=== PATIENT | male | born 1970 | race African-American/Black ===

== ENCOUNTER 2020-06-29 09:46 | Emergency (ER) | payer BC, SELFPAY ==
[2020-06-29 09:46] VITALS: BP 155/89; PULSE 98; RESP 16; TEMP 36.3; O2SAT 99; BMI 31.9
--- NOTE | 2020-06-29 09:55 | RAD_ITS ---
STUDY: X-RAY - PELVIS AND LEFT HIP REASON FOR EXAM: Male, 49 years old. left hip pain, no injury TECHNIQUE: 3 views of the pelvis and hip. COMPARISON: None. FINDINGS: There is a non-specific bowel gas pattern. Normal visualized soft tissue structures. Normal bilateral iliac wings, sacroiliac joints and visualized sacrum. Normal bilateral superior and inferior pubic rami. Normal pubic symphysis. Normal bilateral ischial tuberosities. There are osteoarthritic changes of the femoral head with marginal osteophyte formation. Normal acetabulum. There is mild articular joint space narrowing of the hip. RAD/HIP, UNI W/ Pelvis 2-3 Views IMPRESSION: No acute findings. Mild degenerative changes Electronically Signed: Nahun Bhakta DO at 10:38 EST Tel , Service support ,
[2020-06-29] MEDS: Ketorolac 30 MG/ML Syringe IM (10:15)
--- NOTE | 2020-06-29 11:16 | ED.VIS.LOWEX ---
History of Present Illness Informant: Patient Occurred: Yesterday Mechanism/Context: - - Repetitive motion Onset: Yesterday Context: Gradual Onset Timing: Continuous Quality of Pain: Aching Location: Left hip Current Severity: Severe Maximum Severity: Severe Worsened by: Movement and walking Relieved by: Rest Associated Symptoms: Negative for: Parasthesia, Weakness, Loss of Funtion Narrative: 49-year-old male history of type 2 diabetes presents with left hip pain. Denies injury or trauma. It is an aching pain. Is worse when he stands up from a sitting position. No back pain no weakness no paresthesias no loss of bowel or bladder function no fevers denies IV drug abuse no abdominal pain Tetanus Immunization: Unknown Prior similar symptoms: No Recent Illness/Hospitalization: No <Eduardo Painting - Last Filed: 06/29/20 11:16> <Jhon Meyer - Last Filed: 06/29/20 11:41> Chief Complaint: Lower Extremity Injury Past Medical History Prior records reviewed: Yes Past Medical History: - - Type 2 diabetes mellitus Surgical History: no surgical history Lives: With Family Smoking Status: Never smoker Alcohol: None Drugs: None <Eduardo Painting - Last Filed: 06/29/20 11:16> <Jhon Meyer - Last Filed: 06/29/20 11:41> - Allergies and Home Meds Allergies/Adverse Reactions: Allergies No Known Allergies Allergy (Verified 06/29/20 09:46) Primary Care Physician: Gary Morin DO [STAFF PHYSICIAN] - Harleen Baltazar CUSTOMER SERVICES COORDINATOR, CUSTOMER SERVICES COORDINATOR-C [Nurse Practitioner] - Review of Systems All systems negative except as indicated General: Denies: Chills, Fever, Sweats Eyes: Denies: Visual changes - bilaterally, Diplopia ENT: Denies: Rhinorrhea, Sore throat Cardiovascular: Denies: Chest pain, Palpitations Respiratory: Denies: Dyspnea, Cough, Dyspnea on exertion Gastrointestinal: Denies: Abdominal pain, Nausea, Vomiting, Diarrhea, Melena, Hematochezia Genitourinary: Denies: Dysuria, Hematuria, Frequency Musculoskeletal: Reports: Swelling, Extremity Pain. Denies: Neck pain, Back pain Skin: Denies: Rash, Wounds Neurological: Denies: Headache, Weakness, Numbness <Eduardo Painting - Last Filed: 06/29/20 11:16> Physical Exam Vital Signs/Narrative: Vital Signs Temp Pulse Resp BP Pulse Ox 06/29/20 09:46 97.4 F L 98 16 155/89 H 99 Inital Vital Signs reviewed: Yes - Extremity Exam Left Hip: - - Patient has no swelling redness warmth or signs of trauma or infection or rash on his left hip his left lower extremity or his back. He has some tenderness over the hip. He has normal active range of motion of his hip. He has normal strength testing. He is neurovascular intact distally. Straight leg General: Well nourished, Well developed Head: Normocephalic, Atraumatic Eyes: Perrl, EOMI ENT: No Trauma, Moist Mucous Membranes Neck: Nontender, Full ROM Cardiovascular: Regular rate, Regular rhythm, No murmurs Respiratory: No distress, CTA bilaterally, Chest nontender Abdomen: Soft, Nontender, Nondistended, Normal bowel sounds Back: Nontender Skin: Normal color, No rash Neurological: Alert, Oriented x3, Cranial nerves II-XII grossly intact, Normal Strength, Normal Sensation, Normal DTR, Normal Gait Psychological: Normal affect <Eduardo Painting - Last Filed: 06/29/20 11:16> Vital Signs/Narrative: Vital Signs Temp Pulse Resp BP Pulse Ox 06/29/20 09:46 97.4 F L 98 16 155/89 H 99 <Jhon Meyer - Last Filed: 06/29/20 11:41> Diagnostic/Tx/Re-eval Impressions Hip/Pelvis X-Ray 06/29/20 09:55 IMPRESSION: No acute findings. Mild degenerative changes Electronically Signed: Nahun Bhakta DO at 10:38 EST Tel , Service support , 06/29/20 09:55 HIP, UNI W/ Pelvis 2-3 Views [RAD] Stat - Medical Decision Making X-ray of the patient's left hip showed no acute findings. Patient was given a dose of Toradol for pain while in the emergency department. He was given a prescription for Naprosyn for home. He was referred to orthopedics. He was offered crutches but declined because he was worried about falling while using the crutches due to the snow and ice outside. He was advised to rest and ice and follow-up with his doctor and he was given signs and symptoms that should prompt his return to the emergency department. <Eduardo Painting - Last Filed: 06/29/20 11:16> - Medical Decision Making Patient seen with Eduardo agree with the physical history as above, he has some discomfort to the left hip the back is unremarkable he is able to stand and walk his symptoms are worse when he moves his knee thigh tib-fib ankle and foot unremarkable he points directly to the left hip is of discomfort differentials extensive please see the full chart for full details and management and work-up <Jhon Meyer - Last Filed: 06/29/20 11:41> ED Disposition <Eduardo Painting - Last Filed: 06/29/20 11:16> <Jhon Meyer - Last Filed: 06/29/20 11:41> - Plan for ED Patient: Disposition: Home or Assisted Living Diagnosis: Hip bursitis, left Instructions: ED Bursitis Prescriptions: Naproxen [Naprosyn] 500 mg PO BID PRN #20 tab Transmission Status: Received by [id number] Hydrocodone Bitart/Apap 5-325 [[place] 5MG-325MG] 1 tab PO Q6H PRN PRN 3 Days #10 tab PRN Reason: Pain Transmission Status: Received by [id number] Referrals: Harleen Baltazar NP, CUSTOMER SERVICES COORDINATOR-C [Nurse Practitioner] - Gary Morin DO [STAFF PHYSICIAN] -
== END 2020-06-29 11:32 | disposition home or self-care (01) ==
PROVIDERS: Emergency Provider Physician Assistant Medical; PCP Family Medicine
DX: M70.72 Other bursitis of hip, left hip (principal); E11.9 Type 2 diabetes mellitus without complications; Z79.84 Long term (current) use of oral hypoglycemic drugs
CPT/HCPCS: 73502; 96372; 99282

== ENCOUNTER 2020-09-27 15:13 | Outpatient (RCR) | payer BC, SELFPAY | END 2020-12-10 23:59 | LOC: IMMUN 15:13 | PROVIDERS: PCP Family Medicine; Visit Provider Family Medicine | DX: Z23 Encounter for immunization (principal) | CPT/HCPCS: 0001A; 0002A; 91300 ==

== ENCOUNTER 2023-07-15 15:16 | Emergency (ER) | payer BC, SELFPAY ==
[2023-07-15 15:17] VITALS: BP 143/86; PULSE 77; RESP 18; TEMP 36.3; O2SAT 98; BMI 30.9
--- NOTE | 2023-07-15 16:53 | ED.VIS.DYS ---
HPI History of Present Illness Chief Complaint: Shortness of Breath Onset/Context/Timing Onset: Days Context: gradual Timing: Intermittent Current Severity: Mild Maximum Severity: Mild Worsened by: Nothing Relieved by: Nothing Associated Symptoms Chest Pain: Positive for Sharp Narrative Narrative: 52-year-old male recent adrenal resection done to [facility] on June 15. Recently has had some mild shortness of breath and some intermittent chest discomfort. His surgeon who did his adrenalectomy ordered a CTA of the chest which was done today at a [facility] facility showed diffuse bilateral pulmonary emboli. An ascending to the closest ER to be evaluated for anticoagulation. PE Risk Factors: Positive for Recent immobilization and Recent surgery; Negative for Cancer, OCP + Smoking + > 35, Prior DVT or PE, Recent travel or - Prior similar symptoms: No Recent Illness/Hospitalization: No PFSH PFSH Home Medications amlodipine 10 mg tablet 10 mg PO DAILY 06/29/20 [History Last Taken Unknown] chlorthalidone 25 mg tablet 12.5 mg PO DAILY 06/29/20 [History Last Taken Unknown] lisinopril 40 mg tablet 40 mg PO DAILY 06/29/20 [History Last Taken Unknown] metformin 1,000 mg tablet 1,000 mg PO BID 06/29/20 [History Last Taken Unknown] naproxen 500 mg tablet 500 mg PO BID PRN #20 tabs 06/29/20 [Rx Last Taken Unknown] potassium chloride 20 mEq oral packet 40 meq PO BID 06/29/20 [History Last Taken Unknown] apixaban 5 mg (74 tabs) tablets in a dose pack (Eliquis DVT-PE Treat 30D Start) 5 mg PO BID 30 days #60 tabs 07/15/23 [Rx Last Taken Unknown] Allergy/AdvReac Type Severity Reaction Status Date / Time No Known Allergies Allergy Verified 07/15/23 15:17 Social History Smoking Status: Never smoker ROS ROS ED ROS Narrative Intermittent chest pain. Intermittent shortness of breath. Review of Systems ROS Unobtainable: Denies due to encephalopathy Constitutional Constitutional ED: Denies chills or fever(s) Eyes Eyes: Denies blurry vision ENT ENT ED: Denies ear pain Cardiovascular Cardiovascular: Reports chest pain; Denies palpitations or racing heartbeat Respiratory/Chest Respiratory/Chest: Reports dyspnea; Denies cough Gastrointestinal Gastrointestinal: Denies abdominal pain, constipation, diarrhea, melena, nausea or vomiting Genitourinary Genitourinary ED: Denies dysuria or hematuria Musculoskeletal Musculoskeletal: Denies arthralgias, back pain, myalgias or neck pain Integumentary Denies abscess Neurologic Neurologic: Denies headache(s) Psychiatric Psychiatric: Denies anxiety or depression Endocrine Endocrinology: Denies cold intolerance Hematologic/Lymphatic Hematologic/Lymphatic: Denies easy bleeding Allergic/Immunologic Allergic/Immunologic ED: Denies mouth swelling EXAM Physical Exam Narrative Exam Narrative: 52-year-old male vital signs stable afebrile. Pulse ox 98% on room air no signs hypoxia. He is sitting in a hallway chair. He is in no distress. His heart rate 77. H EENT exam is normal. Neck nontender. Lungs clear to auscultation bilaterally. Heart regular rate and rhythm rate about 75 no murmur. Chest wall nontender. Abdomen soft nontender. Well-healed laparoscopic incisions. Moving all 4 extremities. Nontender no edema. Neurologically is awake and alert with no focal motor deficits. Benign exam. Const Vital Signs: 07/15/23 15:17 Temperature 97.3 F L Temperature Source Temporal Pulse Rate 77 Respiratory Rate 18 Blood Pressure 143/86 H Blood Pressure Mean 105 Pulse Ox 98 Oxygen Delivery Method Room Air Positive well nourished and well developed; Negative for obese, cachectic, contractures or unkempt General Appearance ED: well developed and NAD; Negative for unkempt, cachectic, contractures or pallor Nutritional Appearance: Negative for cachectic or obese HEENT Reports moist mucous membranes; Denies dry mucous membranes atraumatic; Negative for trauma or tenderness Mouth ED: No dry mucous membranes Mouth: No dry mucous membranes Eyes PERRL and EOMs intact bilaterally General Eye ED: Negative for pale conjunctiva or scleral icterus Neck no lymphadenopathy, supple, no meningeal signs and no JVD General: Negative for tenderness Lymph Lymphatic: Negative for other Chest Wall Chest: Negative for other Resp normal respiratory effort and clear to auscultation bilaterally Effort and Inspection: Negative for pain with movement Auscultation: Negative for rales, rhonchi or wheezes Cardio regular rate, regular rhythm, S1 normal heart sound, S2 normal heart sound and no murmurs Rate: Negative for bradycardia or tachycardic Rhythm: Negative for abnormal rhythm GI non-tender, non-distended and no masses Inspection: Negative for other Auscultation: normoactive bowel sounds Palpation: soft; Negative for tender or guarding Bladder / Kidney Exam: No other Back/Spine no CVA tenderness and normal to inspection General Back: Negative for CVA tenderness Extremity normal to inspection General Extremety ED: Negative for edema or tenderness General Extremity: Negative for edema Neuro oriented x3, CN's II-XII intact bilaterally and no sensory deficits noted Sensorium / Orientation: alert, oriented to person, oriented to place and oriented to time; Negative for orientation impaired or confused Speech: speech normal Motor Exam: strength 5/5 throughout Psych mental status grossly normal Appearance: Negative for unkempt Attitude: No agitated Mood & Affect: Negative for depressed Thought Process: normal thought process Skin no wounds and skin turgor normal General Skin Exam: Negative for jaundice or pallor Lesions: no lesions Rashes: no rashes MDM MDM MDM Narrative Medical decision making narrative: 52-year-old male recent adrenalectomy done at the [facility] laparoscopically on 1211. Has had intermittent sharp chest pain and shortness of breath. His surgeon ordered a CTA today of his chest which showed bilateral pulmonary emboli. His surgeon Dr. Cameron read me the CT results from the [facility]. I spoke to our vascular surgeon Dr. Yeboah urinary he and I felt comfortable with the patient being stable in no distress. Pulse ox 98% he could be started on Eliquis for anticoagulation. Patient had recent labs. That I reviewed on his phone from [employer]. Patient be written for Eliquis starter pack and outpatient follow-up with either vascular surgery here or the [facility] and his surgeon who did his recent surgery. Patient is comfortable to plan. History & Record Review Discussion w/independent historian: Patient Additional record(s) reviewed:: Prior inpatient record, Prior outpatient record, Prior ED visit, Prior labs and Other (Labs reviewed from the [facility].) Discharge Plan Triage Chief Complaint: Shortness of Breath ED Provider: Gonzalo Lemus Dx/Rx/DC Orders Clinical Impression: Hx of total adrenalectomy, History of diabetes mellitus, Bilateral pulmonary embolism, Chest pain Instructions: Pulmonary Embolism Prescriptions: New Eliquis DVT-PE Treat 30D Start 5 mg (74 tabs) tablets,dose pack 5 mg PO BID 30 Days Qty: 60 0RF No Action chlorthalidone 25 MG tablet 12.5 mg PO DAILY potassium chloride 20 MEQ packet 40 meq PO BID amlodipine 10 MG tablet 10 mg PO DAILY metformin 1,000 MG tablet 1,000 mg PO BID lisinopril 40 MG tablet 40 mg PO DAILY naproxen 500 MG tablet 500 mg PO BID PRN Qty: 20 0RF Primary Care Provider: Abelino Rangel Referrals: Abelino Rangel MD [Primary Care Provider] - Obinna Royal MD [Med Staff - Active Staff] - As soon as possible Activity Restrictions/Additional Instructions: You have blood clots on both sides your lungs. You will be started on the blood thinner Eliquis. Call and follow-up with your surgeon at the [facility], Dr. Cameron. If you would like our local vascular surgeon Dr. Obinna Vo would be happy to follow you up for the blood clots and the anticoagulation medicine. Anytime you are on blood thinners you to be very careful not to cut yourself. If you would fall and hit your head you need to be reevaluated. If you would notice any bleeding from your nose, blood in your stool or urine or bruising you need to be reevaluated. You will most likely be on this medication for 3 to 6 months. You will need additional prescriptions through your physicians. Disposition Disposition: Home, Self Care
--- OUTSIDE RECORDS SUMMARY | 2023-07-15 17:06 | XMS RPT_ITS | CCD ---
Author Name Unknown Address [address] [place] [address] Organization [facility] Care Team Providers Care Bottle Hop Name Role Phone MOHAN HICKS Unavailable Unavailable MOHAN HICKS Unavailable Unavailable MOHAN HICKS Unavailable Unavailable MOHAN HICKS Unavailable Unavailable Ti Iqbal Unavailable Unavailable MOHAN HICKS Unavailable Unavailable MOHAN HICKS Unavailable Unavailable Ti Iqbal Unavailable Unavailable Leanna Rangel MD Primary Care Provider Leanna Rangel MD Primary Care Provider Leanna Rangel MD Primary Care Provider Leanna Rangel MD Primary Care Provider BERYL ALANIS Referring Unavailable LEANNA RANGEL Primary Care Unavailab LEANNA Scott Primary Care Unavailab PATRICIA Cho Attending Un available ERICA HOWARD Referring U navailable LEANNA RANGEL Primary Care Unavailab LEANNA Scott Primary Care Unavailab LEANNA Scott Referring Unavailab andrew NETTLES SANDRA Attending Unavailable LEANNA RANGEL Primary Care Unavailab LEANNA Scott Primary Care Unavailab LEANNA Scott Primary Care Unavailab ALLYSSA Potter Attending Unavailable BERYL ALANIS Referring Unavailable LEANNA RANGEL Attending Unavailab LEANNA Scott Primary Care Unavailab le LEANNA RANGEL Primary Care Unavailab le BURSLEY, CHRISTOPHER B Primary Care Unavailab le CLAIRE, ROSALINDER B Referring Unavailab le ROSALIND RANGELER B Primary Care Unavailab le ROSALIND RANGELER B Primary Care Unavailab le ROSALIND RANGELER B Primary Care Unavailab le ROSALIND RANGELER B Primary Care Unavailab le TORI IRAIS SANCHEZSHAINAShashank Referring Unavaila ble ROSALIND RANGELER Mana Primary Care Unavailab le ROSALIND RANGELER Mana Referring Unavailab le ROSALIND RANGELER B Primary Care Unavailab NAYELI Price Attending Unavailable ROSALIND RANGELER Mana Primary Care Unavailab le ROSALIND RANGELER Mana Primary Care Unavailab le MELISSA RANGELOPHER B Primary Care Unavailab le ROSALIND RANGELER B Primary Care Unavailab le ROSALIND RANGELER Mana Attending Unavailab le LEANNA RANGEL Primary Care Unavailab ALLYSSA Potter Attending Unavailable ALLYSSA IZQUIERDO Admitting Unavailable LEANNA RANGEL Primary Care Unavailab BERYL Arita Referring Unavailable LEANNA RANGEL Primary Care Unavailab le ROSALIND RANGELER Mana Primary Care Unavailab ALLYSSA Potter Attending Unavailable LEANNA RANGEL Primary Care Unavailab le CLAIRE, ROSALINDER B Primary Care Unavailab le ROSALIND RANGELER B Primary Care Unavailab le LEANNA RANGEL Attending Unavailab BERYL Arita Referring Unavailable LEANNA RANGEL Primary Care Unavailab le ROSALIND RANGELER B Primary Care Unavailab le ROSALIND RANGELER B Referring Unavailab le ROSALIND RANGELER B Primary Care Unavailab le ROSALIND RANGELER B Primary Care Unavailab le ROSALIND RANGELER B Referring Unavailab le ROSALIND RANGELER B Primary Care Unavailab le MELISSA RANGELOPHER B Primary Care Unavailab le MELISSA RANGELOPHER B Primary Care Unavailab le MELISSA RANGELOPHER B Primary Care Unavailab MARY Zabala Attending Unavailable MARY YBARRA Admitting Unavailable LEANNA RANGEL Primary Care Unavailab ALLYSSA Potter Referring Unavailable ROSALIND RANGELER Mana Primary Care Unavailab le ROSALIND RANGELER Mana Attending Unavailab le LEANNA RANGEL Referring Unavailab le ROSALIND RANGELER Mana Primary Care Unavailab LEANNA Scott Primary Care Unavailab PATRICIA Cho Attending Un available LEANNA RANGEL Referring Unavailab BERYL Arita Attending Unavailable LEANNA RANGEL Primary Care Unavailab LEANNA Scott Primary Care Unavailab le Allergies Allergy Classification Reported Allergen(s) Allergy Type Date of Onset Reaction(s) Facility (20 sources) Seasonal allergy; Translations: [SEASONAL ALLERGIES] Propensity to adverse reactions (disorder) 2 Other: See Comments [facility] Repository (20 sources) Spironolactone; Translations: [SPIRONOLACTONE ] Drug Allergy 3 Other: See Comments [facility] Work Phone: Medications Current Medications Medication Drug Class(es) Dates Sig (Normalized) Sig (Original) glimepiride 4 mg oral tablet (20 sources) Sulfonylurea Start: 01-09-2022 End: 08-14-2023 take 2 tablets by mouth once daily at breakfast glimepiride (AMARYL) 4 mg tablet Indications: Type 2 diabetes mellitus with other diabetic kidney complication (HCC) Take 2 tablets by mouth daily with breakfast. 180 tablet 1 02/15/2023 08/14/2023 Active Completed/Discontinued Medications Medication Drug Class(es) Dates Sig (Normalized) Sig (Original) acetaminophen 500 mg oral tablet (2 sources) Start: 06-15-2023 take 2 tablets by mouth every eight hours acetaminophen (TYLENOL) 500 mg tablet Take 2 tablets by mouth every 8 hours. 0 06/15/2023 Active Problems Active Problems Problem Classification Problem Date Documented Date Episodic/Chronic Acute and unspecified renal failure (2 sources) Acute injury of kidney; Translations: [Acute kidney failure, unspecified] Episodic Administrative/socia l admission (1 source) Patient encounter status; Translations: [Dietary counseling and surveillance] Episodic Diabetes mellitus with complications (20 sources) Type 2 diabetes mellitus; Translations: [Type 2 diabetes mellitus with other diabetic kidney complication] Onset: 5 02-28-2015 Chronic Diabetes mellitus without complication (3 sources) Type 2 diabetes mellitus without complication; Translations: [Type 2 diabetes mellitus without complications] Onset: 3 Chronic Disorders of lipid metabolism (20 sources) Hyperlipidemia; Translations: [Hyperlipidemia, unspecified] Onset: 2 09-25-2011 Chronic Essential hypertension (20 sources) Essential (primary) hypertension; Translations: [Essential hypertension] Onset: 7 07-26-2015 Chronic Fluid and electrolyte disorders (1 source) Hypokalemia; Translations: [Hypokalemia] Episodic Immunizations and screening for infectious disease (7 sources) Vaccination needed; Translations: [Encounter for immunization] Episodic Nonmalignant breast conditions (20 sources) Gynecomastia; Translations: [Hypertrophy of breast] 08-05-2017 Episodic Other endocrine disorders (20 sources) Male hypogonadism; Translations: [Testicular hypofunction] Chronic Other endocrine disorders (20 sources) Hyperaldosteronism; Translations: [Hyperaldosteronism, unspecified] Onset: 3 Chronic Other endocrine disorders (2 sources) Disorder of adrenal gland; Translations: [Disorder of adrenal gland, unspecified] Chronic Other endocrine disorders (3 sources) Hyperaldosteronism, unspecified; Translations: [Hyperaldosteronism (HCC)] Onset: 3 Chronic Other endocrine disorders (2 sources) Disorder of adrenal gland, unspecified; Translations: [Disorder of adrenal gland (HCC)] Onset: 3 Chronic Other endocrine disorders (10 sources) Primary aldosteronism; 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] Onset: 3 04-22-2023 Chronic Other endocrine disorders (1 source) Other primary hyperaldosteronism; 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)] Onset: 3 Chronic Other endocrine disorders (2 sources) Testicular hypofunction; 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] Onset: 8 Chronic Other male genital disorders (1 source) Male erectile dysfunction, unspecified; Translations: [Erectile dysfunction, unspecified erectile dysfunction type] Onset: 3 Chronic Other non-traumatic joint disorders (1 source) Pain in left knee; Translations: [Pain in joint, lower leg] Episodic Other nutritional; endocrine; and metabolic disorders (1 source) Obese class I; Translations: [Obesity, unspecified] Chronic Other nutritional; endocrine; and metabolic disorders (4 sources) Obesity caused by energy imbalance; Translations: [Other obesity due to excess calories] Onset: 3 06-07-2023 Chronic Other nutritional; endocrine; and metabolic disorders (1 source) Other obesity due to excess calories; Translations: [Class 1 obesity due to excess calories with body mass index (BMI) of 31.0 to 31.9 in adult, unspecified whether serious comorbidity present] Onset: 3 Chronic Other nutritional; endocrine; and metabolic disorders (1 source) Body mass index (BMI) 31.0-31.9, adult; Translations: [Class 1 obesity due to excess calories with body mass index (BMI) of 31.0 to 31.9 in adult, unspecified whether serious comorbidity present] Onset: 3 Chronic Other nutritional; endocrine; and metabolic disorders (1 source) Obesity, unspecified; Translations: [Obesity, Class I, BMI 30-34.9] Onset: 3 Chronic Other skin disorders (1 source) Ingrowing toenail; Translations: [Ingrowing nail] Episodic Residual codes; unclassified (20 sources) Sleep apnea; Translations: [Sleep apnea, unspecified] Onset: 1 01-03-2021 Chronic Residual codes; unclassified (3 sources) Obstructive sleep apnea syndrome; Translations: [Obstructive sleep apnea (adult) (pediatric)] Chronic Residual codes; unclassified (1 source) Sleep apnea, unspecified; Translations: [Sleep apnea, unspecified type] Onset: 1 Chronic Residual codes; unclassified (1 source) Obstructive sleep apnea (adult) (pediatric); Translations: [JERAMY (obstructive sleep apnea)] Onset: 3 Chronic Unclassified (1 source) Unknown / UNK(Unknown) Onset: 7 Past or Other Problems Problem Classification Problem Date Documented Da te Episodic/Chronic Genitourinary symptoms and ill-defined conditions (20 sources) Blood in urine; Translations: [Hematuria, unspecified] Onset: 05-07-2009 11-27-2010 Episodic Other gastrointestinal disorders (20 sources) Diarrhea; Translations: [Diarrhea, unspecified] Onset: 06-05-2009 11-27-2010 Episodic Other non-traumatic joint disorders (20 sources) Pain in right hip joint; Translations: [Pain in right hip] Onset: 05-22-2019 05-22-2019 Episodic Results Test Name Value Interpretation Reference Range Facil ity Vital Signs Date Time Vital Sign Value Performing Clinician [place] lepe 06-07-2023 13:05-0500 Body height 172.7 cm Pacc 1 Work Phone: [facility] 06-07-2023 13:05-0500 Body temperature 97.39 [degF] Pacc 1 Work Phone: [facility] 06-07-2023 13:05-0500 Body weight 93.89 kg Pacc 1 Work Phone: [facility] 06-07-2023 13:05-0500 Diastolic blood pressure 94 mm[Hg] Pacc 1 Work Phone: [facility] 06-07-2023 13:05-0500 Heart rate 70 /min Pacc 1 Work Phone: [facility] 06-07-2023 13:05-0500 Respiratory rate 16 /min Pacc 1 Work Phone: [facility] 06-07-2023 13:05-0500 SaO2% (BldA) [Mass fraction] 99 % Pacc 1 Work Phone: [facility] 06-07-2023 13:05-0500 Systolic blood pressure 158 mm[Hg] Pacc 1 Work Phone: [facility] 01-14-2023 14:55-0400 Diastolic blood pressure 83 mm[Hg] Mi Nurse Work Phone: [facility] 01-14-2023 14:55-0400 Heart rate 68 /min Mi Nurse Work Phone: [facility] 01-14-2023 14:55-0400 Systolic blood pressure 145 mm[Hg] Mi Nurse Work Phone: [facility] 01-07-2023 14:01-0400 Body height 173.[address] [facility] 01-07-2023 14:01-0400 Body weight 94.[address] [facility] 2022 15:03-0400 Body weight 93.21 kg Beryl Alanis MD Work Phone: [facility] 2022 15:03-0400 Diastolic blood pressure 89 mm[Hg] Beryl Alanis MD Work Phone: [facility] 2022 15:03-0400 Heart rate 72 /min Beryl Alanis MD Work Phone: [facility] 2022 15:03-0400 Systolic blood pressure 154 mm[Hg] Beryl Alanis MD Work Phone: [facility] 12-30-2022 15:39-0400 Diastolic blood pressure 85 mm[Hg] Leanna Rangel MD Work Phone: [facility] 12-30-2022 15:39-0400 Heart rate 70 /min Leanna Rangel MD Work Phone: [facility] 12-30-2022 15:39-0400 Systolic blood pressure 146 mm[Hg] Leanna Rangel MD Work Phone: [facility] 12-03-2022 14:49-0400 Diastolic blood pressure 88 mm[Hg] Mi Nurse Work Phone: [facility] 12-03-2022 14:49-0400 Heart rate 67 /min Mi Nurse Work Phone: [facility] 12-03-2022 14:49-0400 Systolic blood pressure 138 mm[Hg] Mi Nurse Work Phone: [facility] 10-26-2022 11:12-0400 Diastolic blood pressure 93 mm[Hg] Leanna Rangel MD Work Phone: [facility] 10-26-2022 11:12-0400 Heart rate 72 /min Leanna Rangel MD Work Phone: [facility] 10-26-2022 11:12-0400 Systolic blood pressure 157 mm[Hg] Leanna Rangel MD Work Phone: [facility] 10-26-2022 10:54-0400 Body weight 92.99 kg Leanna Rangel MD Work Phone: [facility] 10-26-2022 10:54-0400 Respiratory rate 16 /min Leanna Rangel MD Work Phone: [facility] 09-25-2022 13:13-0400 Diastolic blood pressure 93 mm[Hg] Nayeli Podlogar [employer] Work Phone: [facility] 09-25-2022 13:13-0400 Heart rate 71 /min Nayeli Podlogar [employer] LEAD[employer] IN[employer] Work Phone: [facility] 09-25-2022 13:13-0400 Systolic blood pressure 156 mm[Hg] Nayeli Podlogar [employer] LEAD[employer]SHIP IN[employer] Work Phone: [facility] 09-25-2022 12:52-0400 Body weight 91.35 kg Nayeli Podlogar [employer] LEAD[employer]SHIP INSTRU[employer] Work Phone: [facility] 09-25-2022 12:52-0400 Respiratory rate 16 /min Nayeli Podlogar [employer] LEAD[employer] IN[employer] Work Phone: [facility] 09-25-2022 12:52-0400 SaO2% (BldA) [Mass fraction] 99 % Nayeli Podlogar [employer] LEAD[employer]SH[employer] IN[employer] Work Phone: [facility] 09-10-2022 15:17-0500 Diastolic blood pressure 82 mm[Hg] Leanna Rangel MD Work Phone: [facility] 09-10-2022 15:17-0500 Systolic blood pressure 156 mm[Hg] Leanna Rangel MD Work Phone: [facility] 09-10-2022 14:03-0500 Body weight 90.36 kg Leanna Rangel MD Work Phone: [facility] 09-10-2022 14:03-0500 Heart rate 83 /min Leanna Rangel MD Work Phone: [facility] 09-10-2022 14:03-0500 Respiratory rate 16 /min Leanna Rangel MD Work Phone: [facility] 09-10-2022 14:03-0500 SaO2% (BldA) [Mass fraction] 97 % Leanna Rangel MD Work Phone: [facility] 06-11-2022 13:22-0500 Body height 173.4 cm Leanna Rangel MD Work Phone: [facility] 06-11-2022 13:22-0500 Body weight 91.26 kg Leanna Rangel MD Work Phone: [facility] 06-11-2022 13:22-0500 Diastolic blood pressure 76 mm[Hg] Leanna Rangel MD Work Phone: [facility] 06-11-2022 13:22-0500 Heart rate 80 /min Leanna Rangel MD Work Phone: [facility] 06-11-2022 13:22-0500 Respiratory rate 16 /min Leanna Rangel MD Work Phone: [facility] 06-11-2022 13:22-0500 SaO2% (BldA) [Mass fraction] 98 % Leanna Rangel MD Work Phone: [facility] 06-11-2022 13:22-0500 Systolic blood pressure 138 mm[Hg] Leanna Rangel MD Work Phone: [facility] 03-12-2022 14:36-0400 Diastolic blood pressure 82 mm[Hg] Mi Nurse Work Phone: [facility] 03-12-2022 14:36-0400 Heart rate 73 /min Mi Nurse Work Phone: [facility] 03-12-2022 14:36-0400 Systolic blood pressure 136 mm[Hg] Mi Nurse Work Phone: [facility] 02-26-2022 14:48-0400 Body weight 86.91 kg Leanna Rangel MD Work Phone: [facility] 02-26-2022 14:48-0400 Diastolic blood pressure 82 mm[Hg] Leanna Rangel MD Work Phone: [facility] 02-26-2022 14:48-0400 Heart rate 80 /min Leanna Rangel MD Work Phone: [facility] 02-26-2022 14:48-0400 Respiratory rate 16 /min Leanna Rangel MD Work Phone: [facility] 02-26-2022 14:48-0400 SaO2% (BldA) [Mass fraction] 97 % Leanna Rangel MD Work Phone: [facility] 02-26-2022 14:48-0400 Systolic blood pressure 130 mm[Hg] Leanna Rangel MD Work Phone: [facility] 01-08-2022 15:14-0400 Body weight 90.27 kg Leanna Rangel MD Work Phone: [facility] 01-08-2022 15:14-0400 Diastolic blood pressure 64 mm[Hg] Leanna Rangel MD Work Phone: [facility] 01-08-2022 15:14-0400 Heart rate 90 /min Leanna Rangel MD Work Phone: [facility] 01-08-2022 15:14-0400 Respiratory rate 16 /min Leanna Rangel MD Work Phone: [facility] 01-08-2022 15:14-0400 SaO2% (BldA) [Mass fraction] 97 % Leanna Rangel MD Work Phone: [facility] 01-08-2022 15:14-0400 Systolic blood pressure 118 mm[Hg] Leanna Rangel MD Work Phone: [facility] Encounters Encounter Date Encounter Type Care Provider Facility Start: 06-30-2023 End: 07-01-2023 ambulatory LEANNA RANGEL Facility:[facility] Start: 06-23-2023 End: 06-24-2023 ambulatory ERICA SUAREZ Facility:[facility] Start: 06-21-2023 End: 06-21-2023 ambulatory LEANNA RANGEL Facility:[facility] Start: 06-18-2023 Telephone encounter Allyssa jacob MD Work Phone: Endocrine Surgery Procedures Date Procedure Procedure Detail Performing Clinician Start: 06-07-2023 Antibody screen CALLUM RANGEL Plan of Treatment Date Care Activity Detail Author Start: 06-11-2032 Urine microalbumin profile [facility] Start: 08-30-2024 Colonoscopy COLONOSCOPY [facility] Start: 08-30-2024 COLORECTAL CANCER SCREENING COLORECTAL CANCER SCREENING [facility] Start: 08-30-2024 Screening for malign ant neoplasm of colon [facility] Start: 04-22-2024 3 comp foot exam completed Diabetic Foot Exam [facility] Start: 04-22-2024 Annual PCP Team [employer] [place] Disease Visit Annual PCP Team Chronic Disease Visit [facility] Start: 04-22-2024 Diabetic foot examination Diabetic F oot Exam [facility] Start: 02-04-2024 Glaucoma screening Dilated Retinal E xam [facility] Start: 02-04-2024 Hepatitis C antibody , confirmatory test Dilated Retinal Exam [facility] Start: 12-18-2023 ANNUAL PCP TEAM [employer] [place] DISEASE VISIT ANNUAL PCP TEAM CHRONIC DISEASE VISIT [facility] Start: 10-27-2023 ANNUAL PCP TEAM [employer] [place] DISEASE VISIT ANNUAL PCP TEAM CHRONIC DISEASE VISIT [facility] Start: 10-22-2023 Hemoglobin A1c measurement HbA1C [facility] Start: 10-22-2023 Hemoglobin A1c/Hemoglobin.total in Blood HbA1C [facility] Start: 09-26-2023 ANNUAL PCP TEAM [employer] [place] DISEASE VISIT ANNUAL PCP TEAM CHRONIC DISEASE VISIT [facility] Start: 09-11-2023 ANNUAL PCP TEAM [employer] [place] DISEASE VISIT ANNUAL PCP TEAM CHRONIC DISEASE VISIT [facility] Start: 06-25-2023 Hemoglobin A1c/Hemoglobin.total in Blood HBA1C [facility] Start: 06-11-2023 ANNUAL PCP TEAM [employer] [place] DISEASE VISIT ANNUAL PCP TEAM CHRONIC DISEASE VISIT [facility] Start: 06-11-2023 HEPATITIS B (1 of 3 - 3-dose series) HEPATITIS B (1 of 3 - 3-dose series) [facility] Immunizations Immunization Date Immunization Notes Care Provider Fa lindsay 03-24-2023 hepatitis B vaccine, adult dosage Mi Nurse Work Phone: [facility] Work Phone: 03-23-2023 influenza, injectabl e, quadrivalent, contains preservative Tn Nurse Work Phone: [facility] Work Phone: 07-16-2022 hepatitis B vaccine, adult dosage Mi Nurse Work Phone: [facility] Work Phone: 07-16-2022 hepatitis B vaccine, unspecified formulation Mi Nurse Work Phone: [facility] 06-18-2022 hepatitis B vaccine, adult dosage Tn Nurse Work Phone: [facility] Work Phone: 06-18-2022 hepatitis B vaccine, unspecified formulation Tn Nurse Work Phone: [facility] 06-11-2022 pneumococcal Conjuga te, unspecified formulation Leanna Rangel MD Work Phone: [facility] Work Phone: 06-11-2022 pneumococcal (PCV20) vaccine, 20 valent (PREVNAR 20) Leanna Rangel MD Work Phone: [facility] 06-11-2022 tetanus toxoid, redu polina diphtheria toxoid, and acellular pertussis vaccine, adsorbed Leanna Rangel MD Work Phone: [facility] 03-26-2022 COVID-19 booster vaccine, age 12+ yr, bivalent (PFIZER-BIONTECH) Tn Nurse Work Phone: [facility] Work Phone: 12-04-2021 COVID-19 vaccine, ag e 12+ yr (PFIZER-BIONTECH - SOTO TOP) Tn Nurse Work Phone: [facility] Work Phone: 05-22-2021 COVID-19 vaccine, ag e 12+ yr (PFIZER-BIONTECH - PURPLE TOP) Tn Nurse Work Phone: [facility] Work Phone: 03-27-2021 zoster vaccine recombinant Tn Nurse Work Phone: [facility] Work Phone: 03-11-2021 influenza, injectabl e, quadrivalent, contains preservative Mi Nurse Work Phone: [facility] Work Phone: 01-16-2021 zoster vaccine recombinant Mi Nurse Work Phone: [facility] Work Phone: 10-18-2020 COVID-19 vaccine, ag e 12+ yr (PFIZER-BIONTECH - PURPLE TOP) Mi Nurse Work Phone: [facility] 09-27-2020 COVID-19 vaccine, ag e 12+ yr (PFIZER-BIONTECH - PURPLE TOP) Mi Nurse Work Phone: [facility] 04-03-2020 influenza, seasonal, injectable Mi Nurse Work Phone: [facility] 04-03-2019 influenza, seasonal, injectable Mi Nurse Work Phone: [facility] 03-18-2016 influenza, seasonal, injectable Mi Nurse Work Phone: [facility] Work Phone: 05-06-2015 influenza, seasonal, injectable Mi Nurse Work Phone: [facility] 04-04-2014 influenza, seasonal, injectable Mi Nurse Work Phone: [facility] 03-24-2012 influenza virus vaccine, unspecified formulation Mi Nurse Work Phone: [facility] Work Phone: 03-17-2012 pneumococcal polysaccharide vaccine, 23 valent Mi Nurse Work Phone: [facility] 03-17-2012 tetanus toxoid, redu polina diphtheria toxoid, and acellular pertussis vaccine, adsorbed Mi Nurse Work Phone: [facility] 06-01-2007 influenza virus vaccine, unspecified formulation Mi Nurse Work Phone: [facility] Work Phone: Payers Date Payer Category Payer Unknown [id number] 2020 Unknown ANTHEM BLUE CARD POS OOS [id number] 2020-Present [phone] [address] [place] [address] POS [id number] 2020 Unknown [id number] Private Health Insurance [id number] Unknown [id number] Social History Date Type Detail Facility Start: 03-11-2017 End: 02-26-2022 Tobacco smoking status NHIS Never smoked tobacco [facility] Start: 03-11-2017 End: 02-26-2022 Tobacco use and exposure Smokeless tobacco non-user [facility] Start: 09-05-2021 End: 06-07-2023 Alcohol intake Current drinker of alcohol (finding) [facility] Start: 09-05-2021 End: 11-19-2022 Alcohol intake [facility] Work Phone: Start: 08-05-2017 History SDOH Alcohol Comment occasional use [facility] Start: 03-11-2017 End: 02-26-2022 Tobacco Comment tried once [facility] Start: 1970 Sex Assigned At Not on file [facility] Start: 10-13-2021 End: 02-26-2022 Exposure to SARS-CoV-2 (event) Not sure [facility] Start: 06-11-2022 End: 04-22-2023 Alcohol intake Ex-drinker (finding) [facility] Start: 06-11-2022 Alcohol Comment Rare use [facility] Start: 11-19-2022 End: 01-14-2023 Tobacco use panel [facility] Work Phone: Adult Depression Screening Assessment 0 [facility] Work Phone: Medical Equipment Procedure Code Equipment Code Equipment Origin al Text Equipment Identifier Dates Start: 07-21-2019 End: 04-16-2023 Clinical Notes 04-12-2014 to 06-30-2023 Telephone Encounter - Princess Jo MD - 06/18/2023 4:29 PM ESTTelephone Encounter - Yumiko Pastrana - 06/18/2023 4:01 PM ESTTelephone Encounter - Princess Jo MD - 06/18/2023 4:26 PM EST Note Date & Type Note Facility 06-30-2023 Note [facility] 06-23-2023 Note [facility] 06-21-2023 Note [facility] 06-18-2023 Miscellaneous Notes I just created a new note and routed it. Fellow, Patricia Gunderson has requested the [employer] for an appointment with her for next Wednesday at 3 PM, 06/23/2023. This also needs to routed to [facility] to ensure the visit is scheduled. Thanks for bringing it to our attention. Princess Jo MD, MPH Patient post-op adrenalectomy on 06/15. Called into office with complaints of no follow through by endocrinology team. Patient was told by them before discharge he would be given BP cuff and machine to monitor his blood pressure and follow up appointment with endocrinology to adjust BP medication. Patient stated discharge paperwork has 06/18 and 06/23 for follow up, but no appointment was made. Patient extremely upset about the lack of communication regarding appointments. From a surgical stand point, patient is doing well. Reports incision site is clean, dry and intact. Eating a normal diet, ambulating without difficulty, pain adequately controlled. Will notify Dr. Izquierdo. Yumiko Pastrana RN documented in this encounter [facility] 06-18-[address] Katz has seen this patient in house and signed the note. Dr. Patricia Gunderson has asked the [employer] for an appointment with her next 06/23/23 at 3 PM (tel encounter), but this has not been scheduled yet. I will route to [facility] to ensure the visit and let Dr. Gunderson know to message her in these urgent appointments encounter. Thank you for bringing this to our attention. Princess Jo MD, MPH documented in this encounter [facility] 06-16-2023 Note [facility] 06-15-2023 Note [facility] 06-15-2023 Note [facility] 06-15-2023 Note [facility] 06-15-2023 Note [facility] 06-07-2023 History and physical note HISTORY AND PHYSICAL EXAMINATION SERVICE DATE: 06/07/2023 SERVICE TIME: 2:06 PM PRIMARY CARE PHYSICIAN: Leanna Rangel MD Assessment Patient has the following medical conditions which may affect fidelina-operative course: Hyperlipidemia Assessment: c/w statin Uncontrolled hypertension Assessment: hx, sub-optimal control, asymptomatic Last 14 BP Last 14 Encounter BP Readings: Date: BP: 06/07/2023 158/94 04/22/2023 130/84 02/16/2023 145/81 01/14/2023 145/83[BP Ollie average[ 2022 154/89 12/30/2022 146/85[BP Ollie average[ 12/17/2022 154/91[Ollie BP average[ 12/03/2022 141/83[BP Ollie average[ 11/19/2022 150/89[BP Ollie average[ 10/26/2022 157/93[TruBP[ 09/25/2022 156/93[OLLIE BP[ 09/10/2022 156/82[recheck[ 06/11/2022 138/76 03/12/2022 136/82[BP Ollie average[ Type 2 diabetes mellitus with other diabetic kidney complication (HCC) Assessment: controlled with oral agents Hemoglobin A1C (%) Date Value 04/22/2023 6.3 06/05/2021 6.8 Sleep apnea Assessment: non-compliant with CPAP Class 1 obesity due to excess calories with body mass index (BMI) of 31.0 to 31.9 in adult Assessment: Body mass index is 31.47 kg/m . Zimmerman Activity Status Index: METS: Climb a flight of stairs or walk up a hill (5.50 METs) DASI Score: 5.5 Patient denies any chest pain or undue shortness of breath with the above physical activity. Clinical Frailty Scale: 3. Well, with treated comorbid disease STOP-Bang Score: Snores loudly Often feels tired, fatigued, or sleepy during the daytime Has been observed to stop breathing or choking/gasping during sleep Has or is being treated for high blood pressure Patient over 50 years old Has a large neck Male patient BMI less than or equal to 35 kg/m^2 STOP-Bang Score: 7 [id number] Score: Age: <65 Sex: male CHF history: No Hypertension history: Yes Stroke/TIA/thromboembolism history: No Vascular disease history: No Diabetes history: Yes [id number] Score: 2 ARISCAT Score: Age: 51-80 Preoperative SpO2: >=96% Respiratory infection in the last month: No Preoperative anemia: Yes Surgical incision: peripheral Duration of surgery: >3 hrs Emergency procedure: No ARISCAT Score: 37 ANESTHESIA FINDINGS: Intubation History: No history of difficult intubation Significant Anesthesia Considerations: none Airway History: No history of difficult airway I - PHYSICAL EVALUATION AIRWAY Patient intubated: No. Tracheostomy tube not present Mallampati: III. TM distance: >3 FB. Neck ROM: full ROM without neurological symptoms. Mouth opening: adequate. Short neck: no. Thick neck: yes Valdez present: no Lip Bite Test: I Microretrognathia/Micronagthia/Rec essed Chin: No DENTAL Dental findings: teeth intact. II - ANESTHESIA PLAN Anesthetic Plan: other Beta Apple Monitoring Plan Post Procedure Analgesic Plan Informed Consent Anesthetic risks, benefits, alternatives, personnel and consent discussed: yes. Patient / Responsible Republican agrees to proceed: yes Patient / Surrogate agrees to blood products: blood products not planned Discussed the possibility of lip / dental damage: yes REASON FOR VISIT: Trevor Byers is a 52 year old male who is scheduled for Procedure(s): LAPAROSCOPIC ADRENALECTOMY (Right) at the request of @[email or web address]@ for consultation. My final recommendation will be communicated back to the requesting physician by way of shared medical record or letter. Subjective The patient has the following: ACTIVE PROBLEM LIST Uncontrolled Hypertension Hematuria Diarrhea Sleep Apnea Hyperlipidemia Type 2 Diabetes Mellitus With Other Diabetic Kidney Complication (Hcc) Gynecomastia Hypogonadism in Male Right Hip Pain Primary Hyperaldosteronism (Hcc) Class 1 Obesity Due to Excess Calories With Body Mass Index (Bmi) of 31.0 to 31.9 in Adult COVID-19 Immunization Status Overdue - Covid-19 Vaccine (2022- season) Overdue since 03/05/2023 03/26/2022 Imm Admin: COVID-19 vaccine, age 12+ yr, bivalent (PFIZER-BIONTECH) 12/04/2021 Imm Admin: COVID-19 original vaccine, age 12+ yr, monovalent (PFIZER-BIONTECH - SOTO TOP) 05/22/2021 Imm Admin: COVID-19 original vaccine, age 12+ yr, monovalent (PFIZER-BIONTECH - PURPLE TOP) Only the first 3 history entries have been loaded, but more history exists. CHIEF COMPLAINT: Pre-op exam HPI: Trevor Byers is a 52 year old seen for PAC due to scheduled above surgery because of hyperaldosteronism. 04/22/2023, Dr. Izquierdo HPI: Trevor Byers was evaluated today for a consultation regarding a primary hyperaldosteronism. He has had an extensive work up demonstrating primary aldosteronism. On AVS he lateralized to the right adrenal gland with a ratio of 7.5:1. He has been referred for a surgical evaluation. REVIEW OF SYSTEMS: General: No weight loss, malaise or fevers. Neurological: No history of TIA's, stroke, PUBLIC POLICY COORDINATOR tumor, impaired sensorium, hemiplegia, paraplegia or quadraplegia. No neurological symptoms or problems. Respiratory: Positive for: obstructive sleep apnea and CPAP/BiPAP noncompliant. Negative for: asthma, COPD, pneumonia within 6 weeks, tobacco use and URI < 2 weeks. Cardiovascular: Positive for: hyperlipidemia (on rx) and hypertension (on rx) Negative for: anticoagulation therapy, arrhythmia, atrial fibrillation, CAD, chest pain, CHF, congenital heart defect, DVT/PE, recent OR, murmur/valvular heart disease, PVD, open heart surgery and valve surgery. GI: No history of GI symptoms or problems. No history of esophageal varices, recent ascites, or ETOH greater than 2 drinks per day. : No history of dysuria, frequency or incontinence, stones or chronic kidney disease. No difficulty urinating, nocturia > 1 time per night or hematuria. Endocrine: See HPI. Positive for: diabetes mellitus. Patient's diabetes mellitus is controlled by oral agents. Hematology: No history of bleeding or clotting disorder. Patient is not taking anti-coagulation or platelet medications. No history of hematological symptoms or problems. Oncology: No history of CA metastasis, chemo within 30 days, or radiotherapy within 90 days. No history of oncological symptoms or problems. Psych: No history of psychiatric symptoms or problems. Musculoskeletal: Positive for: joint pain. Skin: Negative for lesions, rash and itching. PAST MEDICAL HISTORY Diagnosis Date Abnormal ECG during exercise stress test 2016 BPH (benign prostatic hyperplasia) Diabetes mellitus type II (HCC) Diverticulosis Gynecomastia Hyperaldosteronism (HCC) Hyperlipidemia Hypertension Hypogonadism in male JERAMY (obstructive sleep apnea) has CPAP but has not been using it Overweight Palpitations PAST SURGICAL HISTORY Procedure Laterality Date COLONOSCOPY FLX DX W/COLLJ SPEC WHEN PFRMD 08/30/2014 Colonoscopy repeat in 10 years FAMILY HISTORY Problem Relation Age of Onset Diabetes Mother Hypertension Mother Coronary Artery Disease Other none Diabetes Brother Twin Hypertension Brother Social History Tobacco Use Smoking status: Never Smokeless tobacco: Never Tobacco comments: tried once Vaping Use Vaping Use: Never used Substance Use Topics Alcohol use: Yes Comment: Rare use Drug use: No Prior to Admission medications as of 06/07/23 1305 Medication Sig Last Dose Taking testosterone cypionate (DEPO-TESTOSTERONE) 200 mg/mL injection Inject 1 mL intramuscularly every 3 weeks for 180 days. Taking Yes empagliflozin (JARDIANCE) 25 mg tablet Take 1 tablet by mouth once daily. Take 1 tablet once daily in the morning Taking Yes metoprolol succinate ER (TOPROL XL) 200 mg 24 hr tablet Take 1 tablet by mouth once daily. Taking Yes hydrALAZINE (APRESOLINE) 25 mg tablet Take 1 tablet by mouth three times a day. Taking Yes ONETOUCH VERIO TEST STRIPS test strip ONE TOUCH VERIO IQ TEST STRIPS TEST BLOOD SUGAR(S) 1-2 TIMES DAILY. DX: TYPE 2 DM - CONTROLLED E11.9 INSULIN: NO Taking Yes glimepiride (AMARYL) 4 mg tablet Take 2 tablets by mouth daily with breakfast. Taking Yes CPAP Pt machine on recall list. Please change PAP setting to 4-11 cmH2O. Set ramp to start at 4 and ramp duration of 30 minutes. Also pleas fit with Dream Wisp nasal mask. Taking Yes amLODIPine (NORVASC) 10 mg tablet Take 1 tablet by mouth once daily. Taking Yes lisinopril (ZESTRIL) 40 mg tablet Take 1 tablet by mouth once daily. Taking Yes metFORMIN (GLUCOPHAGE) 500 mg tablet Take 1 tablet by mouth twice daily with meals. Yes Lancets lancets Test blood sugar(s) 1-2 times daily. Dx: Type 2 DM - Controlled E11.9 Insulin: No Taking Yes nitroglycerin sublingual (NITROSTAT) 0.4 mg SL tablet Dissolve 1 tablet under the tongue as needed. FOR CHEST PAIN. IF NO RELIEF CALL 911 Taking Yes pravastatin (PRAVACHOL) 20 mg tablet Take 1 tablet by mouth daily at bedtime. Taking Yes lancets (ONE TOUCH DELICA) 33 gauge misc Test blood sugar(s) once daily. Dx: Type 2 DM - Controlled E11.9 Insulin: No Taking Yes No medication comments found. ALLERGIES Allergen Reactions Aldactone [Spironol* Other: See Comments gynecomastia Seasonal Allergies Other: See Comments Patient states he gets stuffed up Objective PHYSICAL EXAM: General: alert and oriented (x3), healthy appearance and obese. Pertinent negatives noted - not distressed. Skin: normal color, no rash or lesions. HEENT: EOM intact and pupils equal round. Pertinent negatives noted - no carotid bruit. Cardiovascular: regular rate and rhythm, normal S1 and S2, no rub, murmurs, or gallop. Respiratory: normal breath sounds, no wheezes or crackles. No chest wall deformity or tenderness. Abdomen: soft. Pertinent negatives noted - not tender. Extremities: no deformity, no edema or tenderness, no joint swelling or clubbing. Neurological: normal cognition and motor skills. Gait normal. No weakness or sensory deficit. PAIN ASSESSMENT: VITALS: BP 158/94 Pulse 70 Temp (Src) 97.4 (Temporal) Resp 16 Ht 5' 8 (1.73m) Wt 207 lb (93.9kg) SpO2 99% BMI 31.48 kg/(m^2). Diagnostic tests reviewed for today's visit: Lab Value Units Date High Low HB 16.8 g/dL 12/24/2022 17.0 13.0 HCT 50.4 % 12/24/2022 51.0 39.0 WBC 6.05 k/uL 12/24/2022 11.00 3.70 PLT 233 k/uL 12/24/2022 400 150 NA 136 mmol/L 12/24/2022 144 136 K 3.7 mmol/L 12/24/2022 5.1 3.7 GLUC 109 mg/dL 12/24/2022 99 74 BUN 23 mg/dL 12/24/2022 24 9 CREAT 1.42 mg/dL 12/24/2022 1.22 0.73 PTSEC No results within date range. INR No results within date range. APTT No results within date range. ALT 22 U/L 12/24/2022 54 10 AST 19 U/L 12/24/2022 40 14 TBILI 0.9 mg/dL 12/24/2022 1.3 0.2 TSH No results within date range. Lab Value Units Date High Low HCGQT No results within date range. UHCG No results within date range. HCG, BODY* No results within date range. Lab Value Units Date High Low ABORHD No results within date range. ABSCREEN No results within date range. Hemoglobin A1C (%) Date Value 04/22/2023 6.3 12/24/2022 6.7 09/10/2022 6.3 06/11/2022 6.5 03/12/2022 7.9 06/05/2021 6.8 02/27/2021 7.0 11/28/2020 6.0 08/30/2020 8.0 05/16/2020 7.1 Recent Results (from the past 8760 hour(s)) ECG COMPLETE Collection Time: 06/07/23 2:55 PM Result Value Ventricular Rate 67 Atrial Rate 67 P-R Interval 170 QRS Duration 76 QT Interval 396 QTC Calculation (Bazett) 418 Calculated P Edmond 54 Calculated R Edmond 56 Calculated T Edmond 154 Impression NORMAL SINUS RHYTHM MINIMAL VOLTAGE CRITERIA FOR LVH, MAY BE NORMAL VARIANT ST & LATERAL T WAVE ABNORMALITY ABNORMAL ECG No results found for this or any previous visit (from the past 53570 hour(s)). Prepared for Surgery: optimally prepared for surgery, pending [see comment]. EKG and labs CONSULTS: Patient does not require consults for optimization at this time Planned Anesthetic: other anesthesia choice The Following Tests/Procedures Have Been Initiated: Orders Placed This Encounter ECG COMPLETE Standing Status: Future Standing Expiration Date: 06/07/2024 Instructions Given to Patient: Instructions located in the after visit summary. Patient given verbal and written preop instructions and voices comprehension and compliance. SIGNATURE: Darathony Yu APRN.CNP PATIENT NAME: Trevor Byers DATE: June 07, 2023 TIME: 1:22 PM PAGER/CONTACT #: documented in this encounter [facility] 06-07-2023 Instructions Dara Yu APRN.CNP - 06/07/2023 1:21 PM EST PATIENT PREOPERATIVE INSTRUCTIONS No ref. provider found has scheduled you for your procedure at this surgery center: [facility] Scheduling Office: [phone] --[address] [place] [address]. Please read below carefully for your personalized instructions. Dietary Restrictions: - No solid food after midnight. - You may have 12 ounces of clear liquids (water, clear juices such as apple juice or gatorade, carbonated beverages, clear tea, black coffee, jello) until 2 hours before scheduled arrival at facility. No red/purple coloring and no creamer/sugar Medications: Unless instructed differently below, stay on all of your medications until your surgery. If you start any new medications after today's visit, please contact your surgeon. Pre-Surgery Med Instructions Medication Instructions testosterone cypionate (DEPO-TESTOSTERONE) 200 mg/mL injection Do not take the day of surgery empagliflozin (JARDIANCE) 25 mg tablet Stop 3 days before surgery metoprolol succinate ER (TOPROL XL) 200 mg 24 hr tablet Take the day of surgery with a small sip of water hydrALAZINE (APRESOLINE) 25 mg tablet Take the day of surgery with a small sip of water ONETOUCH VERIO TEST STRIPS test strip glimepiride (AMARYL) 4 mg tablet Do not take the day of surgery CPAP amLODIPine (NORVASC) 10 mg tablet Take the day of surgery with a small sip of water lisinopril (ZESTRIL) 40 mg tablet Do not take the day of surgery metFORMIN (GLUCOPHAGE) 500 mg tablet Do not take the day of surgery Lancets lancets nitroglycerin sublingual (NITROSTAT) 0.4 mg SL tablet IF needed pravastatin (PRAVACHOL) 20 mg tablet Take the day of surgery with a small sip of water lancets (ONE TOUCH DELICA) 33 gauge misc If you take any medications for erectile dysfunction-Cialis (Tadalafil), Levitra, Staxyn (Vardenafil) Viagra (Sildenenafil please do not take these for 48 hours before surgery. If you start any new medications after today's visit, please contact the surgeon's office. Blood Thinning Medications: - Stop NSAIDS (Ibuprofen, Advil, Aleve, Motrin, Celebrex, Mobic, etc.) 7 days before surgery, as directed by your surgeon. - Stop Aspirin 7 days before surgery, as directed by your surgeon. - Stop Vitamin E, ALL multi-vitamins, herbals and dietary supplements 7 days before surgery. - You may take Tylenol (Acetaminophen) or any of your pain medications that do not contain aspirin or NSAIDS as needed. Important Reminders: - Candy, mints, and tobacco products are NOT permitted the morning of surgery. - Hearing aids, dentures and glasses may be worn the morning of surgery. - NO jewelry, body piercings, makeup, hairpins or contacts are to be worn the day of surgery. If you develop symptoms such as a fever, cold, or flu, or have other changes to your health within TWO DAYS of scheduled surgery or the morning of surgery, please contact the surgery center above. Personal Belongings: -Please have photo ID and insurance cards. -If you do not have a copy of advance directives on file with us, please bring a copy with you on the day of surgery. - Leave ALL valuables and money at home or with family members. For Outpatient Procedures: - YOU MUST HAVE A RESPONSIBLE DRILLING MACHINE OPERATOR TAKE YOU HOME. A ASSESSMENT CONSULTANT OR INDUSTRIAL WASTE TREATMENT TECHNICIAN CANNOT BE MADE A RESPONSIBLE DRILLING MACHINE OPERATOR. - We recommend that a responsible person stays with you overnight to take care of you. - You cannot stay in a hotel alone after outpatient surgery. You will not be permitted to have your surgery, if you do not have someone to take care of you. Arrival Time for Surgery: - To obtain your arrival time for surgery, call your physician's office the day before your surgery. - If your surgery is scheduled for Wednesday, call the Wednesday before. Your surgeon s corporate scheduler will tell you what time to call the office. - If you have not reached the departmental corporate scheduler by 5 P.M., call [phone] after 5 P.M. the day before your surgery. Please be aware that emergency situations arise, which may delay or change your surgical time. If this happens, we will notify you as soon as possible and regret any inconvenience. If you already have an Advance Directive, please fax a copy to [phone] or email to for it to be added to your chart. If you do not have an Advance Directive, you can find the appropriate form and more information at [email or web address]. We recommend that you complete the Advance Directive form found on the website and bring it with you the day of your surgery. It can be witnessed and scanned into your chart that day. Dara Yu APRN.KAZ documented in this encounter [facility] 05-25-2023 Note [facility] 05-25-2023 History of Present illness Narrative Patient presents for Testosterone injection. Denies any problems at this time. Brought own medication. Patient instructed on any SE of medication, verbalized understanding and agreed to proceed with treatment. Tolerated injection well. Maricruz Ozuna LPN documented in this encounter [facility] 05-24-2023 Miscellaneous Notes TC to patient who verbalized understanding of script at pharmacy and he has no further questions at this time. EMILIANO Moon Rx sent. Please send rx patient brings in for nurse to administer has appointment tomorrow with her Alia Kyle Ma Patient called and is upset because he still doesn't have his testosterone rx and he needs it today. Said he requested it a week ago and [facility] still doesn't have it. I do not see a request and there are 2 different scripts in his chart; not sure which one to refill in [facility]. Please review. He was yelling because he wants to speak with a nurse. I explained they are with patients and someone would call him back dulce maria. He said he needs a call before 3:30 pm today. [phone]. documented in this encounter [facility] 05-06-2023 Note [facility] 05-04-2023 Miscellaneous Notes Patient has been identified by name and date of : Yes Requested Prescriptions Pending Prescriptions Disp Refills empagliflozin (JARDIANCE) 25 mg tablet 90 tablet 3 Sig: Take 1 tablet by mouth once daily. Take 1 tablet once daily in the morning RX INSTRUCTIONS: Patient is out of medication and is requesting this is sent today. Patient aware RX will be sent to pharmacy. No need to notify patient. Melissa Lowry documented in this encounter [facility] 04-22-2023 Note [facility] 04-22-2023 Note [facility] 04-22-2023 History of Present illness Narrative Endocrinology Metabolism Portis [facility] Allyssa Izquierdo M.D. Section of Endocrine Surgery and Advanced Laparoscopic Surgery [address] [place], [place] [id number] ENDOCRINE SURGERY NEW CONSULTATION NAME: Trevor Byers [facility] NO: [id number] : 1970 Surgeon: Dr. Allyssa Izquierdo REFERRING PROVIDER: Beryl Alanis [address] [address] The patient was referred by the above provider and my findings and recommendations will be communicated by way of the shared medical record. This was a virtual phone visit. I have communicated my name and active licensure. The patient's identity and physical location were verified at the time of this visit. Either the patient or their legal open claims representative has been informed of the risks and benefits of -- and alternatives to -- treatment through a remote evaluation and consents to proceed with the evaluation remotely. HPI: Trevor Byers was evaluated today for a consultation regarding a primary hyperaldosteronism. He has had an extensive work up demonstrating primary aldosteronism. On AVS he lateralized to the right adrenal gland with a ratio of 7.5:1. He has been referred for a surgical evaluation. PMH: PAST MEDICAL HISTORY Diagnosis Date Abnormal ECG during exercise stress test 2016 BPH (benign prostatic hyperplasia) Diabetes mellitus type II (HCC) Diverticulosis Gynecomastia Hyperaldosteronism (HCC) Hyperlipidemia Hypertension Hypogonadism in male JERAMY (obstructive sleep apnea) has CPAP but has not been using it Overweight Palpitations PSH: PAST SURGICAL HISTORY Procedure Laterality Date COLONOSCOPY FLX DX W/COLLJ SPEC WHEN PFRMD 08/30/2014 Colonoscopy repeat in 10 years Medications: Current Outpatient Medications on File Prior to Visit Medication Sig ONETOUCH VERIO TEST STRIPS test strip ONE TOUCH VERIO IQ TEST STRIPS TEST BLOOD SUGAR(S) 1-2 TIMES DAILY. DX: TYPE 2 DM - CONTROLLED E11.9 INSULIN: NO glimepiride (AMARYL) 4 mg tablet Take 2 tablets by mouth daily with breakfast. dexAMETHasone (DECADRON) 1 mg tablet Take one tablet at your bedtime and come into the lab when you wake up for a blood test. testosterone cypionate (DEPO-TESTOSTERONE) 200 mg/mL injection Inject 1 mL intramuscularly every 3 weeks for 90 days. hydrALAZINE (APRESOLINE) 25 mg tablet Take 1 tablet by mouth three times daily. metoprolol succinate ER (TOPROL XL) 200 mg 24 hr tablet Take 1 tablet by mouth once daily. empagliflozin (JARDIANCE) 25 mg tablet Take 1 tablet by mouth once daily. Take 1 tablet once daily in the morning CPAP Pt machine on recall list. Please change PAP setting to 4-11 cmH2O. Set ramp to start at 4 and ramp duration of 30 minutes. Also pleas fit with Dream Wisp nasal mask. amLODIPine (NORVASC) 10 mg tablet Take 1 tablet by mouth once daily. lisinopril (ZESTRIL) 40 mg tablet Take 1 tablet by mouth once daily. metFORMIN (GLUCOPHAGE) 500 mg tablet Take 1 tablet by mouth twice daily with meals. Lancets lancets Test blood sugar(s) 1-2 times daily. Dx: Type 2 DM - Controlled E11.9 Insulin: No nitroglycerin sublingual (NITROSTAT) 0.4 mg SL tablet Dissolve 1 tablet under the tongue as needed. FOR CHEST PAIN. IF NO RELIEF CALL 911 pravastatin (PRAVACHOL) 20 mg tablet Take 1 tablet by mouth daily at bedtime. lancets (ONE TOUCH DELICA) 33 gauge misc Test blood sugar(s) once daily. Dx: Type 2 DM - Controlled E11.9 Insulin: No Current Facility-Administered Medications on File Prior to Visit Medication testosterone cypionate 200 mg injection (DEPO-TESTOSTERONE) All: ALLERGIES Allergen Reactions Aldactone [Spironol* Other: See Comments gynecomastia Seasonal Allergies Other: See Comments Patient states he gets stuffed up SH: Social History Tobacco Use Smoking status: Never Smokeless tobacco: Never Tobacco comments: tried once Substance Use Topics Alcohol use: Not Currently Comment: Rare use Drug use: No FH: Pertinent history above; otherwise, non-contributory REVIEW OF SYSTEMS: GENERAL: Well-appearing, no malaise or fevers RESPIRATORY: Negative for cough, hemoptysis, wheezing, or resting dyspnea CARDIOVASCULAR: Negative for resting chest pain IMAGING: MRI adrenals: January 2023: no adrenal nodule LABS: As above Component Latest Ref Rng & Units 02/18/2023 Dexamethasone ng/dL 294.4 Cortisol 4.8 - 19.5 ug/dL 1.1 (L) Component Latest Ref Rng & Units 01/15/2023 Creatinine Ur, per volume mg/dL 62 Creatinine Ur, per 24h 800 - 2100 mg/d 3410 (H) Free Cortisol ug/L, Urine ug/L 13.00 Cortisol ug/g Coating Inspector, Ur (UFRCRT) ug/g SNOW GROOMER 20.97 Total Volume mL 5500 Hours Collected hr 24 Free Cortisol ug/day, Urine <=60.0 ug/d 71.5 (H) Free Cortisol UR, Interpretation See Note Component Latest Ref Rng & Units 01/15/2023 Hours Collected hr 24 Total Volume mL 5500 Epinephrine, Ur per vol ug/L 2 Norepinephrine, Ur per vol ug/L 16 Dopamine, Ur per vol ug/L 52 Epinephrine, Ur ratio to SNOW GROOMER 0 - 20 ug/g SNOW GROOMER 3 Epinephrine, Ur 24hr 1 - 14 ug/d 11 Norepinephrine, Ur ratio to SNOW GROOMER 0 - 45 ug/g SNOW GROOMER 26 Norepinephrine, Ur 24hr 14 - 120 ug/d 88 Dopamine, Ur ratio to SNOW GROOMER 0 - 250 ug/g SNOW GROOMER 84 Creatinine Ur, per volume mg/dL 62 Creatinine Ur, per 24h 800 - 2100 mg/d 3410 (H) Dopamine, Ur 24hr 71 - 485 ug/d 286 Catecholamines Interpretation See Note ASSESSMENT: In summary, Trevor Byers has 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 PLAN: Will plan to proceed with laparoscopic/robotic right lateral adrenalectomy. Will order a morning ACTH with his preop labs. He will need PACC. He would also like to talk to the financial team about the surgery financial details. Will coordinate. I appreciate being involved in the care of your patient, and please feel free to contact me should you have additional questions. I spent a total of 45 minutes on the date of the service which included preparing to see the patient, [id number] patient care, completing clinical documentation, obtaining and/or reviewing separately obtained history, counseling and educating the patient/family/caregiver, ordering medications, tests, or procedures, communicating with other HCPs (not separately reported), independently interpreting results (not separately reported), communicating results to the patient/family/caregiver, and care coordination (not separately reported). 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 WORKSHEET Initial Call Date: April 20, 2023 Reason for Consult/ Referral: Adrenal Mass PATIENT DEMOGRAPHICS Name: Trevor Byers [facility]#: [id number] : 1970 AGE: [age] year old Contact Numbers: Home: (home) Work: (work) PATIENT PHYSICIAN INFORMATION Referring Doctor: Address: Phone: Receptionist Secretary: Address: Phone: PCP: Leanna Rangel [address] [place] [address] PAST TREATMENT Office notes: SEE EPIC Medications: NONE THAT APPLY Pre-Visit Testing Component Latest Ref Rng & Units 01/15/2023 02/18/2023 03/25/2023 03/25/2023 03/25/2023 03/25/2023 03/25/2023 03/25/2023 11:05 PM 11:30 AM 11:32 AM 11:36 AM 11:37 AM 11:40 AM 11:45 AM Hours Collected hr 24 Total Volume mL 5500 Epinephrine, Ur per vol ug/L Norepinephrine, Ur per vol ug/L Dopamine, Ur per vol ug/L Epinephrine, Ur ratio to SNOW GROOMER 0 - 20 ug/g SNOW GROOMER Epinephrine, Ur 24hr 1 - 14 ug/d Norepinephrine, Ur ratio to SNOW GROOMER 0 - 45 ug/g SNOW GROOMER Norepinephrine, Ur 24hr 14 - 120 ug/d Dopamine, Ur ratio to SNOW GROOMER 0 - 250 ug/g SNOW GROOMER Creatinine Ur, per volume mg/dL 62 Creatinine Ur, per 24h 800 - 2100 mg/d 3410 (H) Dopamine, Ur 24hr 71 - 485 ug/d Catecholamines Interpretation Free Cortisol ug/L, Urine ug/L 13.00 Cortisol ug/g Coating Inspector, Ur (UFRCRT) ug/g SNOW GROOMER 20.97 Free Cortisol ug/day, Urine <=60.0 ug/d 71.5 (H) Free Cortisol UR, Interpretation See Note Aldosterone 0.0 - <35.4 ng/dL 11,150.0 (H) 12,550.0 (H) 563.0 (H) 714.0 (H) 8,770.0 (H) 85.2 (H) Direct Renin 3.6 - 81.6 pg/mL Aldosterone/Renin Ratio <3.8 Patient Upright or Supine Sodium, 24 hr Urine 40 - 220 mmol/24 hr Period hr Urine Volume 24 hour mL Test 1 Test Results 1 Referral Lab 1 Dexamethasone ng/dL 294.4 Cortisol 4.8 - 19.5 ug/dL 1.1 (L) 1,041.7 (H) 1,119.8 (H) 355.6 (H) 439.8 (H) 893.2 (H) 22.0 (H) Imaging Reports: SEE EPIC CD of Images: SEE EPIC FNA: no FNA Slides: N/A Has the patient ever had thyroid or parathyroid surgery before: No Operative Reports: NONE AVAILABLE Pathology Reports: NONE AVAILABLE documented in this encounter [facility] 04-16-2023 Miscellaneous Notes Patient has been identified by name and date of : Yes, Provider Dr. Baker Date 04.16.23 Time 9:18 am Pharmacy phones for refill(s): Requested Prescriptions Pending Prescriptions Disp Refills ONETOUCH VERIO TEST STRIPS test strip [Pharmacy Med Name: ONE TOUCH VERIO TEST STRIP] 100 Strip 4 Sig: ONE TOUCH VERIO IQ TEST STRIPS TEST BLOOD SUGAR(S) 1-2 TIMES DAILY. DX: TYPE 2 DM - CONTROLLED E11.9 INSULIN: NO Date of last office visit in primary care: 12/17/2022 Date of next office visit in primary care: 04/22/2023 Last 2 Encounter Wt Readings: Date: Wt: 01/07/2023 94.1 kg (207 lb 8 oz) 2022 93.2 kg (205 lb 8 oz) Previous labs/tests for medication: Diabetes: Hemoglobin A1C (%) Date Value 12/24/2022 6.7 09/10/2022 6.3 06/05/2021 6.8 02/27/2021 7.0 . Thank you. Bettina Ragland LPN. documented in this encounter [facility] 04-13-2023 Miscellaneous Notes Patient was returning a call. documented in this encounter [facility] 04-12-2023 Miscellaneous Notes Spoke to patient regarding his AVS results. 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 We discussed referral to endocrine surgery, Dr. Allyssa Izquierdo ([phone]). Patient agreeable to proceed with surgical consultation. Beryl Alanis MD documented in this encounter [facility] 03-24-2023 Note [facility] 03-24-2023 History of Present illness Narrative Patient presents for Testosterone injection. Denies any problems at this time. Brought own medication. Patient instructed on any SE of medication, verbalized understanding and agreed to proceed with treatment. Tolerated injection well. Pt also to receive Hepatitis B vaccine. Maricruz Ozuna LPN documented in this encounter [facility] 03-05-2023 Note [facility] 03-05-2023 History of Present illness Narrative Patient presents for Testosterone injection. Denies any problems at this time. Brought own medication. Patient instructed on any SE of medication, verbalized understanding and agreed to proceed with treatment. Tolerated injection well. Maricruz Ozuna LPN documented in this encounter [facility] 03-03-2023 Miscellaneous Notes Patient was notified regarding lab work needed Alia Kyle Ma Order approved. Due for repeat testosterone at the end of March. Order in the system. Should get testing done 1.5 weeks after injection. Patient scheduled for nurse visit 03/05/23 to receive Testosterone injection. Please place new administration order at this time. Maricruz Ozuna LPN documented in this encounter [facility] 02-16-2023 Miscellaneous Notes SCHEDULED 03/25 SPK W/ PT INTERVENTIONAL RADIOLOGY PATIENT APPOINTMENT REQUEST February 15, 2023 Trevor Byers [id number] Request: Schedule Requestor: Sadaf Licona APRN.CNP Ref.Physician: Beryl Alanis MD [facility] Physician: Dr. Ybarra Procedure/Request: AVS Reason/ICD Code: Hyperaldosteronism Priority: routine Scheduling Comments: Please schedule AVS with Dr. Ybarra. Does MD need to be present for consult?: N/A IR Procedure Room: No Preferred Room Equipment or Vendor Request: No / N/A Anticipated length of procedure (not including prep or Anesthesia): 3 hours Pre-Procedure Orders: None Sedation: Moderate Sedation Bed Reservation: NA Location of Procedure: [facility] [place] documented in this encounter [facility] 02-15-2023 Miscellaneous Notes BEENA 12/17/22 NOV not scheduled Please review and advise. Thank you. EMILIANO Moon Patient has been identified by name and date of : Yes Requested Prescriptions Pending Prescriptions Disp Refills glimepiride (AMARYL) 4 mg tablet 180 tablet 1 Sig: Take 2 tablets by mouth daily with breakfast. RX INSTRUCTIONS: Patient aware RX will be sent to pharmacy. No need to notify patient. Melissa Lowry documented in this encounter [facility] 02-11-2023 Note [facility] 02-11-2023 History of Present illness Narrative Patient presents for Testosterone injection. Denies any problems at this time. Brought own medication. Patient instructed on any SE of medication, verbalized understanding and agreed to proceed with treatment. Tolerated injection well. Maricruz Ozuna LPN documented in this encounter [facility] 02-10-2023 Miscellaneous Notes RN called patient and relayed Dr. Alanis's message. Patient voices and understanding and has no other needs at the moment. Felicity Bauman RN Please let patient know [place] was [place] of the country [place] 2 [place]. His MRI showed normal looking adrenals- that's good news. His labs were okay. I will call him by end of this week, likely Wednesday to go over results and next steps in treatment of hypertension. Beryl Alanis MD Patient calls to request results of 24 hour urine testing and MRI of adrenals. Patient asking next steps/treatment. Please review and advise, Akua Biggs RN documented in this encounter [facility] 01-21-2023 Note HNO ID: [id number] Author: Mariana Spears RT(R) Service: ? Author Type: Technologist Type: Progress Notes Filed: 01/21/2023 10:46 AM Note Text: Radiology Service Progress Note DATE OF SERVICE: January 21, 2023 TIME: 10:25 AM PATIENT IDENTITY VERIFICATION COMPLETED USING TWO (2) STANDARD IDENTIFIERS: Name and Date of confirmed by patient verbally. FALL SCREENING: Has the patient had 2 falls in the last year or 1 fall with injury or currently using an Ambulatory Assistive Device (Walker, Cane, Wheelchair, Crutches, etc.)? No PATIENT GENDER DATA: Male PATIENT RELEVANT IMPLANT DATA REVIEWED: Not Applicable ALLERGIES: Reviewed and unchanged CONTRAST ALLERGY: NO. EXAM: MRI - CONTRAST TYPE: GROUP I OR GROUP III RISK FACTORS: History of Diabetes Mellitus History of hypertension requiring medical therapy CREATININE: Creatinine Date Value Ref Range Status 12/24/2022 1.42 (H) 0.73 - 1.22 mg/dL Final 09/10/2022 1.32 (H) 0.73 - 1.22 mg/dL Final 03/12/2022 1.30 (H) 0.73 - 1.22 mg/dL Final Estimated Glomerular Filtration Rate Date Value Ref Range Status 12/24/2022 59 (L) >=60 mL/min/1.73m? Final Comment: Estimated Glomerular Filtration Rate (eGFR) is calculated using the 2020 CKD-EPI creatinine equation. This equation utilizes serum creatinine, sex, and age as parameters. The creatinine assay has traceable calibration to isotope dilution-mass spectrometry. Refer to KDIGO guidelines for clinical interpretation. In patients with unstable renal function, e.g. those with acute kidney injury, the eGFR may not accurately reflect actual GFR. eGFR- Date Value Ref Range Status 06/05/2021 >60 Final P.O.C.T. RESULTS: N/A January 21, 2023 TREATMENT: N/A PERIPHERAL IV DATA: Ambulatory: A peripheral IV was started in the Right antecubital site with a Angio cath: 22 gauge. RADIOLOGY DEPARTMENT: MR; Exam(s) Completed: Body: Adrenal SIGNATURE: [facility] PATIENT NAME: Trevor Byers DATE: January 21, 2023 TIME: 10:25 AM [facility] 01-20-2023 Note [facility] 01-20-2023 History of Present illness Narrative Patient presents for Testosterone injection. Denies any problems at this time. Brought own medication. Patient instructed on any SE of medication, verbalized understanding and agreed to proceed with treatment. Tolerated injection well. Maricruz Ozuna LPN documented in this encounter [facility] 01-15-2023 Miscellaneous Notes Patient returns call and provider message reviewed multiple times. Patient reports he wants to speak with Dr. Alanis before making any medication changes. Patient to phone back once he does that. Akua Biggs RN Patient returned call and I attempted to read notes from Dr Rangel. Patient kept saying my headset was cracking and he could not hear me. But he could hear everything I was saying. Told patient sending notes to his my chart. Copy and pasted notes below and sent to patient on my chart. Attempted to contact patient and no answer and recording states to call back later. No VM available. [employer] Message sent for patient to return call to receive provider's message. Reviewed patient's endocrinology note for hyperaldosteronism. He has been on aldactone before with gynecomastia and they recommended Eplerenone instead to lower BP. This is another potassium sparing water pill which typically starts at 50 mg daily. If he is agreeable, we could hold his hydralazine that he has to take 3 times daily and try this new medication instead. Let me know please. Phoned patient and he reports he does not check his blood pressure at home. BP elevated in patient who did not take rx today. Has he been checking BP at home? If so, what is he getting for readings there? Manual Readin/84 Pulse: 73 BP Ollie average: 145/83 P: 68 Repeat BP Check: 149/87 P73 #1 148/82 P70 #2 149/84 P69 #3 136/81 P64 #4 149/81 P67 #5 141/81 P67 #6 Reason for blood pressure check - Last BP elevated and Medication adjustment Patient is: Taking medication as prescribed Yes Took medication today No (works nights and takes at off times) If no, date medication last taken 01/13/23 Experiencing side effects No BP was elevated at nurse visit 12/30/22. Hydralazine was increased 25mg three times daily. Tolerating medication well. Pt has been identified by name and birthdate: Yes Allergies reviewed: Yes Latex allergy: no. Medication - prescribed and OTC reviewed and updated: Yes Do you need any prescription refills prior to your next visit: No Health Maintenance: Reviewed and not up to date and provider notified Patient advised that he would be contacted after review by PCP. Maricruz Ozuna LPN documented in this encounter [facility] 01-14-2023 Note [facility] 01-14-2023 History of Present illness Narrative Manual Readin/84 Pulse: 73 BP Ollie average: 145/83 Repeat BP Check: 149/87 P73 #1 148/82 P70 #2 149/84 P69 #3 136/81 P64 #4 149/81 P67 #5 141/81 P67 #6 Reason for blood pressure check - Last BP elevated and Medication adjustment Patient is: Taking medication as prescribed Yes Took medication today No (works nights and takes at off times) If no, date medication last taken 01/13/23 Experiencing side effects No BP was elevated at nurse visit 12/30/22. Hydralazine was increased 25mg three times daily. Tolerating medication well. Pt has been identified by name and birthdate: Yes Allergies reviewed: Yes Latex allergy: no. Medication - prescribed and OTC reviewed and updated: Yes Do you need any prescription refills prior to your next visit: No Health Maintenance: Reviewed and not up to date and provider notified Patient advised that he would be contacted after review by PCP. Maricruz Ozuna LPN documented in this encounter [facility] 01-08-2023 Miscellaneous Notes Pt notified via [employer]. Attempted to call no VM Telephone call to patient. VM not setup. Please try back later. Aubrie Dudley LPN Patient returned call given message below with further questions. Was unable to hold for a nurse at this time and requested a call back. I did schedule for the MRI that Endo provider placed. TC to patient with no answer. Unable to leave VM as box is not set up. Please try again later. EMILIANO Moon ----- Message from Leanna Rangel MD sent at 2022 8:07 AM EDT ----- 24 hour sodium level is normal. Follow up with endocrinology for aldosteronism workup and treatment. documented in this encounter [facility] 01-07-2023 Note [facility] 01-07-[address] - 01/07/2023 2:33 PM EDT Add in regular exercise aim for at least 30 min on off days Work on increasing sleep with goal of at least 6 hours on work days Aim for 9-11 servings fruits and veggies Follow 2000 mg sodium diet . Avoid the following foods: Salt, salt seasonings, and monosodium glutamate (a seasoning salt added to foods) Soy sauce Salted crackers and snack foods Vegetables prepared in brine (such as pickles, sauerkraut) Cured and processed meats (such as cold cuts, smoked fish) Condensed or canned soups that are made by adding water Sodium Terms and Their Meaning Very Low Sodium: 35 mg sodium or less per serving Low Sodium: 140 mg sodium or less per serving Reduced Sodium: Sodium is reduced by 25% Light in Sodium: Sodium is reduced by at least 50% Ingredient List If salt or sodium is listed within the first 5 ingredients, the item is likely to have a high sodium content and should not be used. Nutrition Label Food labels have milligrams (mg) of sodium listed. A sodium level of 500 mg or more per serving is too high in sodium to use. Avoid foods that are fortified with extra vitamin C. Shopping Tips Meats: Choose fresh meat, fish, and poultry that have not been processed with salt or sodium nitrate/nitrite. Fruits: Choose allowed fresh, frozen, or canned fruits. Vegetables: Choose allowed fresh, frozen or low-sodium canned vegetables. Avoid vegetables prepared in brine. Dairy: Choose low-fat milk or milk products, such as plain or fruited yogurt with allowed fruits. Breads/Cereals: Choose breads and cereals without nuts. Bread does not have to be low sodium but should not have salted toppings. Desserts: Choose cookies, cakes, or ice cream without nuts or chocolate. Snacks: Choose unsalted chips, pretzels, or popcorn. Avoid nuts and peanut butter. Avoid the salt shaker and other salt seasonings when cooking. Use lemon juice, herbs, and spices that do not contain salt to add flavor. If taking potassium citrate do not use salt substitutes or low salt milk. The reason for this is that these products will likely contain potassium. This could cause an accidental excess of potassium. Consider multivitamin, magnesium, vit D documented in this encounter [facility] 01-07-2023 History of Present illness Narrative Nutrition Therapy Initial Assessment Nutrition Diagnosis: Behavioral-Environmental: Food and nutrition related knowledge deficit, related to, lack of prior exposure to information , as evidenced by change in existing diagnosis or condition. RECOMMENDED MALNUTRITION DIAGNOSIS: NO MALNUTRITION IDENTIFIED NUTRITION CARE PLAN Nutrition Intervention 01/07/2023: modify type and amount of food or beverage Add in regular exercise aim for at least 30 min on off days Work on increasing sleep with goal of at least 6 hours on work days Aim for 9-11 servings fruits and veggies Follow 2000 mg sodium diet . Avoid the following foods: Salt, salt seasonings, and monosodium glutamate (a seasoning salt added to foods) Soy sauce Salted crackers and snack foods Vegetables prepared in brine (such as pickles, sauerkraut) Cured and processed meats (such as cold cuts, smoked fish) Condensed or canned soups that are made by adding water Sodium Terms and Their Meaning Very Low Sodium: 35 mg sodium or less per serving Low Sodium: 140 mg sodium or less per serving Reduced Sodium: Sodium is reduced by 25% Light in Sodium: Sodium is reduced by at least 50% Ingredient List If salt or sodium is listed within the first 5 ingredients, the item is likely to have a high sodium content and should not be used. Nutrition Label Food labels have milligrams (mg) of sodium listed. A sodium level of 500 mg or more per serving is too high in sodium to use. Avoid foods that are fortified with extra vitamin C. Shopping Tips Meats: Choose fresh meat, fish, and poultry that have not been processed with salt or sodium nitrate/nitrite. Fruits: Choose allowed fresh, frozen, or canned fruits. Vegetables: Choose allowed fresh, frozen or low-sodium canned vegetables. Avoid vegetables prepared in brine. Dairy: Choose low-fat milk or milk products, such as plain or fruited yogurt with allowed fruits. Breads/Cereals: Choose breads and cereals without nuts. Bread does not have to be low sodium but should not have salted toppings. Desserts: Choose cookies, cakes, or ice cream without nuts or chocolate. Snacks: Choose unsalted chips, pretzels, or popcorn. Avoid nuts and peanut butter. Avoid the salt shaker and other salt seasonings when cooking. Use lemon juice, herbs, and spices that do not contain salt to add flavor. If taking potassium citrate do not use salt substitutes or low salt milk. The reason for this is that these products will likely contain potassium. This could cause an accidental excess of potassium. Consider multivitamin, magnesium, vit D Nutrition Monitoring & Evaluation: labs in target range Need for Follow up: 4-6 weeks Patient presents for initial MNT as relates to uncontrolled HTN, HLD, DM, and class 1 obesity Body mass index is 31.3 kg/m . Works a 12 hour second shift, does not get enough sleep. Intake includes high sodium foods, often long periods between meals. Is active at work but no regular exercise. Patient's symptoms are: uncontrolld blood pressure Diet History: Work 4 p.m to 4 a.m. To bed 6 -8 a.m. Wake 1 p.m.. Breakfast - 1-3 p.m. -meat (chicken, pork, ribs, rice or dumpling or potato or bread; occ salad; diet soda Snack - could be banana, or apple or orange or banana nut bread or cake or nuts or nothing Lunch - 9:30-2 (usually 1-2 a.m.), like breakfast meal Snack - no Dinner - occ when home from work couple eggs, plantains; lately a smoothie with watermelon, beet root, spinach, aruga and stuart and honey Snack - no Beverages - diet soda, gatoradezero, Alcohol- occ couple beer (less than one x per week) or when out with friends Vitamins/Supplements - no Activity: Activities of Daily Living: active at work Additional Activity: Sedentary (Little or no exercise: <1x/week) Active at work 12 hour shifts 4 days perweek Anthropometrics: Height: Last 1 Encounter Ht Readings: Date: Ht: 01/07/2023 173.4 cm (5' 8.27 ) Current weight: Last 1 Encounter Wt Readings: Date: Wt: 01/07/2023 94.1 kg (207 lb 8 oz) Body mass index is 31.3 kg/m . Resting Metabolic Rate: 1768 Malnutrition Screening Significant unintentional weight loss? No Eating less than 75% of usual intake for more than 2 weeks? No Potential Signs of Inflammation: no identifiable sources Education Materials Provided: Sodium Controlled diet READINESS TO LEARN Cognitive ability: Alert and oriented Motivation to learn: Interested Family support: Unable to assess - Family not present Instruction provided to: Patient Patient learns best by: Individual Instruction Factors affecting learning: None Physical limitations affecting learning: None Referred/Supervised by: Claire/Dimitrios MNT Billing Type: Initial Assess/15 min 3 units SIGNATURE: Sandra Nettles RD PATIENT NAME: Trevor Byers DATE: January 07, 2023 TIME: 2:01 PM documented in this encounter [facility] 01-01-2023 Miscellaneous Notes Lab orders placed in outgoing mail box to be sent to patient. Ai Partida RN documented in this encounter [facility] 2022 Note [facility] 2022 History of Present illness Narrative Reason for Consultation: Uncontrolled Hypertension, Hyperaldosteronism Referring Physician: Leanna Rangel [id number] [facility] [facility] [place] [id number] My final recommendations will be communicated back to the requesting physician by way of shared Medical record or letter via US mail. Date: 2022 HISTORY OF PRESENT ILLNESS; Mr. Byers is a 52 year old male presenting as a new patient to me regarding uncontrolled hypertension and hyperaldosteronism. PMH HTN since 2006, Type 2 DM since 2008 (HbA1c 6.7%), hypogonadism treated with testosterone, HPL, hx gynecomastia on spironolactone (used in 2013 and resumed 2016 after aldosterone found to be high), Stage 3 CKD, JERAMY on CPAP. Medications include: testosterone cypionate 200 mg every 3 weeks, hydralazine 25 mg TID (recently added), metoprolol ER 200 mg daily, amlodipine 10 mg, lisinopril 40 mg. Hydrochlorothiazide was stopped years ago, chlorthalidone was used 2014 to 02/2022 - hypokalemia has not occurred since diuretic was stopped. Diabetes regimen: empagliflozin 25 mg, metformin 500 mg twice daily, glimepiride 4 m tablets daily, pravastatin 20 mg. 03/2017 aldosterone was elevated at 40, with suppressed renin. Spironolactone was started after the test. He saw Dr Greene in 2017 for gyncomastia and spironolactone was stopped and eplerenone was prescribed (patient did not continue on this medication per SEP). Recent labs showed elevated aldosterone of 30.6, renin 2.1 and ratio of 14.6. Imaging: CT abdomen with IV contrast 04/2017: no mass on adrenals. Patient has not had dedicated adrenal imaging. In the office blood pressure is 154/89. Patient does not check BP at home. No headaches, occasional blurry vision. Family history is pertinent for diabetes and hypertension in patient's mother and brother. Severity, modifying factors, context and associated signs and symptoms are as follows: Hypertension: yes on 4 medications Palpitations: no Diaphoresis: no Headache: no Pallor: no Tremor: no Proximal Muscle Weakness: no Thin Skin: no Flushing: no Hirsutism: no Overall, patient is frustrated by difficult to control blood pressure and wants specific diagnosis if possible. PAST MEDICAL HISTORY Diagnosis Date Abnormal ECG during exercise stress test 2016 BPH (benign prostatic hyperplasia) Diabetes mellitus type II (HCC) Diverticulosis Gynecomastia Hyperaldosteronism (HCC) Hyperlipidemia Hypertension Hypogonadism in male JERAMY (obstructive sleep apnea) has CPAP but has not been using it Overweight Palpitations PAST SURGICAL HISTORY Procedure Laterality Date COLONOSCOPY FLX DX W/COLLJ SPEC WHEN PFRMD 08/30/2014 Colonoscopy repeat in 10 years FAMILY HISTORY Problem Relation Age of Onset Diabetes Mother Hypertension Mother Coronary Artery Disease Other none Diabetes Brother Twin Hypertension Brother Social History Tobacco Use Smoking status: Never Smokeless tobacco: Never Tobacco comments: tried once Substance Use Topics Alcohol use: Not Currently Comment: Rare use Drug use: No Current Outpatient Medications Medication Sig Dispense Refill testosterone cypionate (DEPO-TESTOSTERONE) 200 mg/mL injection Inject 1 mL intramuscularly every 3 weeks for 90 days. 4 mL 0 hydrALAZINE (APRESOLINE) 25 mg tablet Take 1 tablet by mouth three times daily. 90 tablet 2 metoprolol succinate ER (TOPROL XL) 200 mg 24 hr tablet Take 1 tablet by mouth once daily. 90 tablet 1 empagliflozin (JARDIANCE) 25 mg tablet Take 1 tablet by mouth once daily. Take 1 tablet once daily in the morning 30 tablet 1 CPAP Pt machine on recall list. Please change PAP setting to 4-11 cmH2O. Set ramp to start at 4 and ramp duration of 30 minutes. Also pleas fit with Dream Wisp nasal mask. 1 Each 0 amLODIPine (NORVASC) 10 mg tablet Take 1 tablet by mouth once daily. 90 tablet 3 lisinopril (ZESTRIL) 40 mg tablet Take 1 tablet by mouth once daily. 90 tablet 3 metFORMIN (GLUCOPHAGE) 500 mg tablet Take 1 tablet by mouth twice daily with meals. 180 tablet 1 blood sugar diagnostic (ONETOUCH VERIO TEST STRIPS) test strip ONE TOUCH VERIO IQ TEST STRIPS Test blood sugar(s) 1-2 times daily. Dx: Type 2 DM - Controlled E11.9 Insulin: No 100 Strip 4 Lancets lancets Test blood sugar(s) 1-2 times daily. Dx: Type 2 DM - Controlled E11.9 Insulin: No 100 Each 11 glimepiride (AMARYL) 4 mg tablet Take 2 tablets by mouth daily with breakfast. 180 tablet 1 nitroglycerin sublingual (NITROSTAT) 0.4 mg SL tablet Dissolve 1 tablet under the tongue as needed. FOR CHEST PAIN. IF NO RELIEF CALL 911 25 Bottle of 25 0 pravastatin (PRAVACHOL) 20 mg tablet Take 1 tablet by mouth daily at bedtime. 90 tablet 3 lancets (ONE TOUCH DELICA) 33 gauge misc Test blood sugar(s) once daily. Dx: Type 2 DM - Controlled E11.9 Insulin: No 100 Each 3 Current Facility-Administered Medications Medication Dose Route Frequency Provider Last Rate Last Admin testosterone cypionate 200 mg injection (DEPO-TESTOSTERONE) 200 mg INTRAMUSCULAR q 2 WEEKS Leanna Rangel MD 200 mg at 12/30/22 1455 Allergies As of Date: 2022 Allergen Noted Reaction SEASONAL ALLERGIES 03/17/2012 Other: See Comments Fully Assessed 2022 REVIEW OF SYSTEMS: General: no fever, chills or acute changes in weight in the last 6 months Skin: no rashes, pruritis or dry skin Eyes: +blurred vision, no eye pain Cardiac: denies chest pain, heart palpitations or orthopnea Resp: denies wheezing, productive cough or exertional dyspnea Hematologic: Negative for anemia, easy bleeding and bruising. Genitourinary: denies nocturia,polyuria Other systems were reviewed per HPI. PHYSICAL EXAM: BP 154/89 (BP Site: Left Arm, BP Position: Sitting) Pulse 72 Wt 93.2 kg (205 lb 8 oz) BMI 31.00 kg/m General appearance: Well appearing, alert, in no acute distress, well-hydrated, well nourished, muscular build. Skin: Skin color, texture, turgor normal, no cervical fat pad Head: Normocephalic Eyes: Anicteric sclera. Pupils are equally round. Extraocular movements are intact. Neck: Supple, no adenopathy; thyroid symmetric Lungs: Lungs clear to auscultation. No wheezing, rhonchi, rales. Heart: RRR without murmur Abdomen: soft, non-tender. Bowel sounds normal. No striae. Extremities: No edema Musculoskeletal: No joint swelling, deformity, or tenderness Peripheral pulses: Normal Neuro: Gait normal. Reflexes normal and symmetric. DATA: All pertinent data and imaging studies were reviewed during this consultation. Component Latest Ref Rng & Units 03/12/2017 Aldosterone 3.1 - 35.4 ng/dL 40.0 (H) Direct Renin pg/mL <2.1 Aldosterone/Renin Ratio <4 Unable to calculate because one or more components used in calculation is outside . . . Component Latest Ref Rng & Units 12/24/2022 Aldosterone 0.0 - <35.4 ng/dL 30.6 Direct Renin 3.6 - 81.6 pg/mL 2.1 (L) Aldosterone/Renin Ratio <3.8 14.6 (H) Patient Upright or Supine Upright Component Latest Ref Rng & Units 12/25/2022 Sodium, 24 hr Urine 40 - 220 mmol/24 hr 114 Period hr 24 Urine Volume 24 hour mL 3,000 Component Latest Ref Rng & Units 02/05/2017 08/09/2017 08/02/2018 3:10 PM 1:22 PM 12:37 PM TSH 0.400 - 5.500 uU/mL 1.090 3.160 Free T4 0.9 - 1.7 ng/dL 1.3 Component Latest Ref Rng & Units 09/25/2021 12/09/2021 01/08/2022 02/25/2022 03/12/2022 09/10/2022 12/24/2022 Protein, Total 6.3 - 8.0 g/dL 7.7 8.0 7.5 7.8 7.6 8.3 (H) 7.6 Albumin 3.9 - 4.9 g/dL 4.9 5.0 (H) 4.8 4.9 5.1 (H) 5.0 (H) 4.6 Calcium 8.5 - 10.2 mg/dL 10.3 (H) 10.2 10.3 (H) 9.9 9.9 10.1 9.6 Bilirubin, Total 0.2 - 1.3 mg/dL 0.4 1.0 0.3 0.7 1.1 0.6 0.9 Alkaline Phosphatase 38 - 113 U/L 70 76 54 68 66 81 72 AST 14 - 40 U/L 21 19 19 18 17 14 19 ALT 10 - 54 U/L 26 20 16 20 25 19 22 Glucose 74 - 99 mg/dL 190 (H) 295 (H) 152 (H) 183 (H) 175 (H) 123 (H) 109 (H) BUN 9 - 24 mg/dL 21 26 (H) 21 34 (H) 19 24 23 Creatinine 0.73 - 1.22 mg/dL 1.31 (H) 1.44 (H) 1.78 (H) 1.61 (H) 1.30 (H) 1.32 (H) 1.42 (H) Sodium 136 - 144 mmol/L 138 135 (L) 141 137 140 142 136 Potassium 3.7 - 5.1 mmol/L 3.5 (L) 3.5 (L) 3.7 3.1 (L) 3.8 3.9 3.7 Chloride 97 - 105 mmol/L 99 95 (L) 101 95 (L) 103 104 100 CO2 22 - 30 mmol/L 25 28 24 27 24 25 22 Anion Gap 9 - 18 mmol/L 14 12 16 15 13 13 14 eGFR >=60 mL/min/1.73m 66 59 (L) 45 (L) 51 (L) 66 65 59 (L) Component Latest Ref Rng & Units 12/24/2022 Hemoglobin A1C 4.3 - 5.6 % 6.7 (H) Estimated Average Glucose mg/dL 146 Component Latest Ref Rng & Units 05/16/2020 11/28/2020 09/05/2021 08/07/2022 12/24/2022 Testosterone 240 - 950 ng/dL 760 585 391 653 995 (H) Testosterone Free 4.06 - 15.6 ng/dL 26.6 (H) 22.8 (H) 18.4 (H) 20.5 (H) 40.0 (H) Component Latest Ref Rng & Units 12/24/2022 WBC 3.70 - 11.00 k/uL 6.05 RBC 4.20 - 6.00 m/uL 5.77 Hemoglobin 13.0 - 17.0 g/dL 16.8 Hematocrit 39.0 - 51.0 % 50.4 MCV 80.0 - 100.0 fL 87.3 MCH 26.0 - 34.0 pg 29.1 MCHC 30.5 - 36.0 g/dL 33.3 RDW-CV 11.5 - 15.0 % 12.5 Platelet Count 150 - 400 k/uL 233 MPV 9.0 - 12.7 fL 9.9 Neut% % 60.8 Abs Neut (ANC) 1.45 - 7.50 k/uL 3.68 Lymph% % 25.3 Abs Lymph 1.00 - 4.00 k/uL 1.53 Terry% % 6.6 Abs Terry <0.87 k/uL 0.40 Eosin% % 5.3 Abs Eosin <0.46 k/uL 0.32 Baso% % 0.8 Abs Baso <0.11 k/uL 0.05 Immature Gran % % 1.2 IMMATURE GRANS (ABS) <0.10 k/uL 0.07 NRBC /100 WBC 0.0 Absolute nRBC <0.01 k/uL <0.01 DTYPE Auto ASSESSMENT: Mr. Byers is a 52 year old male presenting as a new patient to me regarding uncontrolled hypertension and hyperaldosteronism. PMH HTN dx 2006, Type 2 DM dx 2008 and well controlled, hypogonadism treated with testosterone, HPL, hx gynecomastia on spironolactone 2016 and stopped 09/2017, JERAMY on CPAP. Medications include: testosterone cypionate 200 mg every 3 weeks, hydralazine 25 mg TID (NEW), metoprolol ER 200 mg daily, amlodipine 10 mg, lisinopril 40 mg. 4 blood pressure medications. On blood pressure medications since age of 36. BP 154/89 in the office today. No hypokalemia since chlorthalidone was stopped 02/2022 Elevated aldosterone of 40 with suppressed renin in 2016. CT abdomen with IV contrast 04/2017: no mass on adrenals. Patient has not had dedicated adrenal imaging. No previous cortisol or metanephrine testing. Patient does not appear Cushingoid. RECOMMENDATIONS: We discussed that aldosterone is quite elevated in 2017 and now with low renin and off any spironolactone; this is highly supportive of primary hyperaldosteronism The confirmatory salt loading or IV saline suppression test does not have to be done Adrenal imaging is needed; recommend MRI adrenal with and without contrast. Patient was advised to hold metformin for 2 days before and 2 days after the MRI as a precautionary measure Adrenal venous sampling will be needed if a solitary adrenal nodule is not found on imaging Complete 24 hour urine for cortisol, metanephrines, and fractionated catecholamines to screen for hypercortisolism and pheochromocytoma respectively. Printed order requisitions were mailed to patient's home Medical treatment of hypertension in setting of hyperaldosteronism is spironolactone (which patient had a side effect of gynecomastia with) or less potent eplerenone Will let patient know results as they become available Beryl Alanis MD documented in this encounter [facility] 2022 Miscellaneous Notes Phoned patient and reviewed provider's message with him. Patient voiced understanding. Phone rings. Please try back tomorrow during 12-3 per demo notes. Milla Haines MA BP improving, but still elevated. Increase hydralazine to 25 mg TID and recheck in 2 weeks. Manual Readin/83 Pulse: 62 BP Ollie average: 146/85 P: 70 Repeat BP Check: 144/86 P72 #1 152/86 P73 #2 143/82 P67 #3 145/86 P67 #4 144/85 P67 #5 145/84 P73 #6 Reason for blood pressure check - Last BP elevated and Medication adjustment Patient is: Taking medication as prescribed Yes Took medication today Yes If no, date medication last taken N/A Experiencing side effects No BP continued to be elevated at last appt. Was started on Hydralazine 10mg three times daily. Reports that he has been taking this for approx 1 week. Tolerating well. Denies any chest pain, shortness of breath, dizziness, or headaches. Has been decreasing sodium use. Drinking lots of water. No personal history of tobacco use; no current exposure. Alert and oriented. Pt has been identified by name and birthdate: Yes Allergies reviewed: Yes Latex allergy: no. Medication - prescribed and OTC reviewed and updated: Yes Do you need any prescription refills prior to your next visit: No Health Maintenance: Reviewed and not up to date and provider notified Patient advised to continue with current medications and would be contacted if any further instructions after review by PCP. He is scheduled to see Endocrinology 12/31/22 for further evaluation. Maricruz Ozuna LPN documented in this encounter [facility] 12-30-2022 Note [facility] 12-30-2022 Miscellaneous Notes Patient notified of results, verbalizes understanding of instructions. Maricruz Ozuna LPN Patient's total testosterone level is elevated on his current regimen. Recommend holding next injeciton of testosterone and rechecking level in about 3 weeks before resuming treatment with less frequent injections every 3 weeks instead of every 2 weeks. DM remains well controlled. Blood counts normal. Kidney function down slightly compared to last check with GFR of 59. Recommend low sodium diet, avoidance of NSAIDs, and increased water intake. Will recheck at next OV. Testing is consistent with aldosteronism. This would explain why we have had such a difficult time controlling his blood pressure. Will refer to endocrinology for further evaluation and treatment. documented in this encounter [facility] 12-30-2022 History of Present illness Narrative Patient presents for Testosterone injection. Denies any problems at this time. Brought own medication. Patient instructed on any SE of medication, verbalized understanding and agreed to proceed with treatment. Tolerated injection well. Maricruz Ozuna LPN documented in this encounter [facility] 12-22-2022 Miscellaneous Notes Phoned patient and advised of message patient voiced understanding. Spoke with patient regarding below. Patient states that he was not aware of the hydralazine being sent to pharmacy or what is for. Explained to patient that it was RX on 12/17/22 at his OV with Dr. Rangel. Pt stated that he does not recall talking about this and asking to find out more and call him back. Will need to call patient back on 12/22/22 after [address] Rangel wants to add on hydralazine 10 mg TID to help continue to lower his BP. With resistant hypertension, will also order an ultrasound of his renal arteries and work him up for aldosteronism as possible cause with labs in 1 week. Alannah Locke MA We have added hydralazine to his current regimen. He is to take all of them and proceed with workup for resistant HTN. Heather with [facility] calls to report they received a rx for hydralazine 10 mg ( pt had OV 12/17/22). Heather reports pt is on amlodipine 10 daily and lisinopril 40 mg daily. Heather reports pt is picking up rx and is asking if he is to take all three meds or if something is supposed to be discontinued. Per OV notes no medication was discontinued. Please review and call pt with dr's message. Fatemeh Long LPN documented in this encounter [facility] 12-17-2022 Note [facility] 12-03-2022 Miscellaneous Notes Phoned patient and updated him with Dr Rangel's message. Patient voiced understanding. BP remains elevated on BP Ollie. Increase metoprolol to 200 mg daily. Recheck in 2-3 weeks. Call if feeling lightheaded or dizzy, BP <100/60, HR <60. Manual Readin/88 Pulse: 67 BP Ollie average: 141/83 P: 66 Repeat BP Check: 141/84 P66 #1 139/80 P64 #2 144/85 P67 #3 136/82 P69 #4 135/81 P65 #5 148/86 P66 #6 Reason for blood pressure check - Last BP elevated and Medication adjustment Patient is: Taking medication as prescribed Yes Took medication today No (takes in afternoon) If no, date medication last taken 12/02/22 Experiencing side effects No BP was elevated at nurse visit 11/19/22. Toprol was increased to 150mg daily. Tolerating medication change well. Denies any chest pain, shortness of breath, dizziness, or headaches. Occasional caffeine use; none today. No personal history of tobacco use. Has been decreasing sodium intake. Alert and oriented. Pt has been identified by name and birthdate: Yes Allergies reviewed: Yes Latex allergy: no. Medication - prescribed and OTC reviewed and updated: Yes Do you need any prescription refills prior to your next visit: No Health Maintenance: Reviewed and not up to date and provider notified Patient advised that he would be contacted after review by PCP. Maricruz Ozuna LPN documented in this encounter [facility] 12-03-2022 Note [facility] 12-03-2022 History of Present illness Narrative Patient presents for Testosterone injection. Denies any problems at this time. Brought own medication. Patient instructed on any SE of medication, verbalized understanding and agreed to proceed with treatment. Tolerated injection well. Maricruz Ozuna LPN documented in this encounter [facility] 11-19-2022 Note [facility] 11-17-2022 Miscellaneous Notes Order approved. Patient scheduled for nurse visit 11/19/22 to receive Testosterone injection. Please place new administration order at this time. Maricruz Ozuna LPN documented in this encounter [facility] 10-26-2022 Note [facility] 10-26-2022 History of Present illness Narrative Chief Complaint Patient presents with: Blood Pressure HPI Trevor Byers is a 51 year old male who presents here today for Above Complaints.. At last OV on 09/25 we increased patient's metoprolol to 50 mg daily. Patient states that he has been taking medications as prescribed and not checking BP at home on a regular basis. States that he has been drinking 1 Monster with 0 sugar per day. Is adding sea salt to his food occasionally. Past medical history, appointments, medications, allergies reviewed. Previous Medical History PAST MEDICAL HISTORY Diagnosis Date Abnormal ECG during exercise stress test 2016 BPH (benign prostatic hyperplasia) Diabetes mellitus type II (HCC) Diverticulosis Gynecomastia Hyperaldosteronism (HCC) Hyperlipidemia Hypertension Hypogonadism in male JERAMY (obstructive sleep apnea) has CPAP but has not been using it Overweight Palpitations Previous Surgical History PAST SURGICAL HISTORY Procedure Laterality Date COLONOSCOPY FLX DX W/COLLJ SPEC WHEN PFRMD 08/30/2014 Colonoscopy repeat in 10 years Family History FAMILY HISTORY Problem Relation Age of Onset Diabetes Mother Hypertension Mother Coronary Artery Disease Other none Diabetes Brother Twin Hypertension Brother Patient Allergies ALLERGIES Allergen Reactions Seasonal Allergies Other: See Comments Patient states he gets stuffed up Current Medications Current Outpatient Medications on File Prior to Visit Medication Sig CPAP Pt machine on recall list. Please change PAP setting to 4-11 cmH2O. Set ramp to start at 4 and ramp duration of 30 minutes. Also pleas fit with Dream Wisp nasal mask. amLODIPine (NORVASC) 10 mg tablet Take 1 tablet by mouth once daily. lisinopril (ZESTRIL) 40 mg tablet Take 1 tablet by mouth once daily. metFORMIN (GLUCOPHAGE) 500 mg tablet Take 1 tablet by mouth twice daily with meals. metoprolol succinate ER (TOPROL XL) 25 mg 24 hr tablet Take 2 tablets by mouth once daily. blood sugar diagnostic (ONETOUCH VERIO TEST STRIPS) test strip ONE TOUCH VERIO IQ TEST STRIPS Test blood sugar(s) 1-2 times daily. Dx: Type 2 DM - Controlled E11.9 Insulin: No Lancets lancets Test blood sugar(s) 1-2 times daily. Dx: Type 2 DM - Controlled E11.9 Insulin: No testosterone cypionate (DEPO-TESTOSTERONE) 200 mg/mL injection Inject 1 mL intramuscularly every 2 weeks for 168 days. empagliflozin (JARDIANCE) 25 mg tablet Take 1 tablet by mouth once daily. Take 1 tablet once daily in the morning glimepiride (AMARYL) 4 mg tablet Take 2 tablets by mouth daily with breakfast. nitroglycerin sublingual (NITROSTAT) 0.4 mg SL tablet Dissolve 1 tablet under the tongue as needed. FOR CHEST PAIN. IF NO RELIEF CALL 911 pravastatin (PRAVACHOL) 20 mg tablet Take 1 tablet by mouth daily at bedtime. lancets (ONE TOUCH DELICA) 33 gauge misc Test blood sugar(s) once daily. Dx: Type 2 DM - Controlled E11.9 Insulin: No Current Facility-Administered Medications on File Prior to Visit Medication testosterone cypionate 200 mg injection (DEPO-TESTOSTERONE) Social History Social History Tobacco Use Smoking status: Never Smokeless tobacco: Never Tobacco comments: tried once Substance Use Topics Alcohol use: Not Currently Comment: Rare use Drug use: No Review of Symptoms REVIEW OF SYSTEMS GENERAL: No weight loss, malaise or fevers RESPIRATORY: Negative for cough, hemoptysis, wheezing, COPD, dyspnea or shortness of breath CARDIOVASCULAR: Negative for chest pain, leg swelling, hypertension, CHF or palpitations EXAM: BP 157/93 Pulse 72 Resp 16 Wt 93 kg (205 lb) BMI 30.93 kg/m General Appearance: Well appearing, alert, in no acute distress, well-hydrated, well nourished.. Skin: Skin color, texture, turgor normal, no suspicious rashes or lesions. Lungs: Lungs clear to auscultation. No wheezing, rhonchi, rales.. Heart: RRR without murmur, gallop, or rubs. No ectopy. Extremities: No deformities, edema, skin discoloration, clubbing or cyanosis. Good capillary refill. . Health Maintenance List BP CONTROLLED (<130/80) due on 02/24/2019 DEPRESSION ASSESSMENT due on 07/05/2022 HEPATITIS B(3 of 3 - 19+ 3-dose series) due on 12/14/2022 DILATED RETINAL EXAM due on 01/15/2023 DIABETIC FOOT EXAM due on 02/26/2023 INFLUENZA(Season Ended) due on 03/05/2023 HBA1C due on 03/13/2023 URINE ALBUMIN:CREATININE RATIO due on 06/11/2023 LDL CHOLESTEROL due on 06/11/2023 ANNUAL PCP TEAM CHRONIC DISEASE VISIT due on 09/26/2023 COLORECTAL CANCER SCREENING due on 08/30/2024 DTAP,TDAP,TD(3 - Td or Tdap) due on 06/11/2032 HEPATITIS C SCREENING Completed HIV SCREENING Completed SHINGRIX VACCINE Completed COVID-19 VACCINE Completed PNEUMOCOCCAL Completed Data reviewed Component Latest Ref Rng & Units 09/10/2022 Protein, Total 6.3 - 8.0 g/dL 8.3 (H) Albumin 3.9 - 4.9 g/dL 5.0 (H) Calcium 8.5 - 10.2 mg/dL 10.1 Bilirubin, Total 0.2 - 1.3 mg/dL 0.6 Alkaline Phosphatase 38 - 113 U/L 81 AST 14 - 40 U/L 14 ALT 10 - 54 U/L 19 Glucose 74 - 99 mg/dL 123 (H) BUN 9 - 24 mg/dL 24 Creatinine 0.73 - 1.22 mg/dL 1.32 (H) Sodium 136 - 144 mmol/L 142 Potassium 3.7 - 5.1 mmol/L 3.9 Chloride 97 - 105 mmol/L 104 CO2 22 - 30 mmol/L 25 Anion Gap 9 - 18 mmol/L 13 eGFR >=60 mL/min/1.73m 65 Hemoglobin A1C 4.3 - 5.6 % 6.3 (H) Estimated Average Glucose mg/dL 134 ASSESSMENT/PLAN: 1. Essential hypertension - ICD9: 401.9, ICD10: I10 - poor control - Increase metoprolol (Lopressor/Toprol) - Encouraged dietary sodium restriction/DASH diet - Recommended regular aerobic exercise. - Follow up in 1 month for BP recheck. - Reviewed risks of HTN and principles of treatment - Goal of BP <140/90 - METOPROLOL SUCCINATE ER 100 MG TABLET,EXTENDED RELEASE 24 HR Leanna Rangel MD documented in this encounter [facility] 10-22-2022 Note [facility] 10-22-2022 History of Present illness Narrative Patient presents for Testosterone injection. Denies any problems at this time. Brought own medication. Patient instructed on any SE of medication, verbalized understanding and agreed to proceed with treatment. Tolerated injection well. Maricruz Ozuna LPN documented in this encounter [facility] 10-21-2022 Miscellaneous Notes Called and spoke to Zeferino at [facility] and retrieved fax # to send script to. Rx for machine faxed to [phone]. Patient notified. Aubrie Dudley LPN Rx for machine printed. Please fax as prescribed. Pt called in and he is requesting a new prescription be sent to [facility]: [phone] does not have the fax number. He has been waiting for 2 1/2 years for his replacement Cpap order number per pt [phone] . Pt reports his machine was recalled and he is still waiting for a new machine. Pt very upset and frustrated. Please advise pt. Bettina Ragland LPN documented in this encounter [facility] 10-08-2022 Note [facility] 10-08-2022 History of Present illness Narrative Patient presents for Testosterone injection. Denies any problems at this time. Brought own medication. Patient instructed on any SE of medication, verbalized understanding and agreed to proceed with treatment. Tolerated injection well. Maricruz Ozuna LPN documented in this encounter [facility] 09-25-2022 Note [facility] 09-25-2022 History of Present illness Narrative 09/25/2022 Patient presents with: Blood Pressure: Follow up SUBJECTIVE: This is a 51 year old that is here today for Above Complaints.. Taking metoprolol as prescribed at last visit without side effects, Reports has been out of his amlodipine for two days though. Not checking BP at home. Denies visual changes, headaches, lightheadedness, dizziness, slurred speech, facial drooping, confusion, extremity numbness, tingling weaknesses, SOB, dyspnea, chest pain or palpitations. PAST MEDICAL HISTORY Diagnosis Date Abnormal ECG during exercise stress test 2016 BPH (benign prostatic hyperplasia) Diabetes mellitus type II (HCC) Diverticulosis Gynecomastia Hyperaldosteronism (HCC) Hyperlipidemia Hypertension Hypogonadism in male JERAMY (obstructive sleep apnea) has CPAP but has not been using it Overweight Palpitations ALLERGIES Seasonal Allergies MEDICATIONS Current Outpatient Medications Medication Sig blood sugar diagnostic (ONETOUCH VERIO TEST STRIPS) test strip ONE TOUCH VERIO IQ TEST STRIPS Test blood sugar(s) 1-2 times daily. Dx: Type 2 DM - Controlled E11.9 Insulin: No Lancets lancets Test blood sugar(s) 1-2 times daily. Dx: Type 2 DM - Controlled E11.9 Insulin: No testosterone cypionate (DEPO-TESTOSTERONE) 200 mg/mL injection Inject 1 mL intramuscularly every 2 weeks for 168 days. empagliflozin (JARDIANCE) 25 mg tablet Take 1 tablet by mouth once daily. Take 1 tablet once daily in the morning glimepiride (AMARYL) 4 mg tablet Take 2 tablets by mouth daily with breakfast. metFORMIN (GLUCOPHAGE) 500 mg tablet Take 1 tablet by mouth twice daily with meals. metoprolol succinate ER (TOPROL XL) 25 mg 24 hr tablet Take 1 tablet by mouth once daily. (Patient not taking: Reported on 09/10/2022) nitroglycerin sublingual (NITROSTAT) 0.4 mg SL tablet Dissolve 1 tablet under the tongue as needed. FOR CHEST PAIN. IF NO RELIEF CALL 911 amLODIPine (NORVASC) 10 mg tablet Take 1 tablet by mouth once daily. lisinopril (ZESTRIL, PRINIVIL) 40 mg tablet Take 1 tablet by mouth once daily. pravastatin (PRAVACHOL) 20 mg tablet Take 1 tablet by mouth daily at bedtime. CPAP Pt machine on recall list. Please change PAP setting to 4-11 cmH2O. Set ramp to start at 4 and ramp duration of 30 minutes. Also pleas fit with Dream Wisp nasal mask. lancets (ONE TOUCH DELICA) 33 gauge misc Test blood sugar(s) once daily. Dx: Type 2 DM - Controlled E11.9 Insulin: No Current Facility-Administered Medications Medication Dose Route Frequency testosterone cypionate 200 mg injection (DEPO-TESTOSTERONE) 200 mg INTRAMUSCULAR q 2 WEEKS Medications and allergies reviewed by this provider. SOCIAL HISTORY Social History Tobacco Use Smoking status: Never Smokeless tobacco: Never Tobacco comments: tried once Substance Use Topics Alcohol use: Not Currently Comment: Rare use Drug use: No REVIEW OF SYSTEMS All other reviewed and negative other than HPI. OBJECTIVE: BP 156/93 Pulse 71 Resp 16 Wt 91.4 kg (201 lb 6.4 oz) SpO2 99% BMI 30.38 kg/m . Vital signs reviewed by this provider. APPEARANCE Well appearing, alert, in no acute distress, well-hydrated, well nourished. ASSESSMENT/PLAN: 1. Essential hypertension - ICD9: 401.9, ICD10: I10 - poor control - Increase metoprolol (Lopressor/Toprol) - Encouraged dietary sodium restriction/DASH diet - Recommended regular aerobic exercise. - Recommend home blood pressure monitoring, to bring results in on next visit - Discussed need and benefit for weight loss. - Follow up in 1 month for BP recheck. - Goal of BP <140/90 - Recommend home or pharmacy blood pressure monitoring - Recommended no refined sugar, low refined starch, healthy oil intake (olive oil), healthy protein (fish) along the lines of the Mediterranean diet. - AMLODIPINE 10 MG TABLET - LISINOPRIL 40 MG TABLET - METOPROLOL SUCCINATE ER 25 MG TABLET,EXTENDED RELEASE 24 HR Nayeli Zaragoza APRN.CNP Prescription instructions reviewed with patient as applicable. Patient advised if symptoms do not improve or if symptoms worsen sooner, to contact their primary care physician. Potential red flag symptoms discussed with the patient. Reviewed appropriate action plan to take if red flag symptoms occur. Patient agreeable to treatment plan. I spent a total of 20 minutes on the date of the service which included preparing to see the patient, [id number] patient care, completing clinical documentation, obtaining and/or reviewing separately obtained history, performing a medically appropriate examination, counseling and educating the patient/family/caregiver, and ordering medications, tests, or procedures. documented in this encounter [facility] 09-10-2022 Note [facility] 09-10-2022 History of Present illness Narrative Chief Complaint Patient presents with: Follow Up HPI Trevor Byers is a 51 year old male who presents here today for DM follow up. DIABETES MELLITUS: Mr. Byers was last seen 3 months ago. Since our last visit he denies excessive thirst or increased frequency of urination, numbness, tingling or pain in extremities, new or unusual visual symptoms, and low sugar/hypoglycemic reactions. Follows a diabetic diet most of the time. He is compliant with medication(s) and is tolerating med(s) without any side effects. He reports checking his glucose on a once a day schedule but cannot recall his readings. Did not bring meter or readings with him. Ran out of strips last. Patient's last HgA1C was Hemoglobin A1C (%) Date Value 06/11/2022 6.5 03/12/2022 7.9 06/05/2021 6.8 02/27/2021 7.0 ) Last Ophthalmology exam was within the past 12 months Last Podiatry exam was within the past 12 months Patient notes that he doesn't think he has been taking his Metoprolol for the last 3 months because the pharmacy did not notify him it was ready back in June. BP elevated today, likely from not taking this medication. Has not been checking his BP at home and doesn't have cuff. Still waiting on his CPAP machine. Past medical history, appointments, medications, allergies reviewed. Previous Medical History PAST MEDICAL HISTORY Diagnosis Date Abnormal ECG during exercise stress test 2016 BPH (benign prostatic hyperplasia) Diabetes mellitus type II (HCC) Diverticulosis Gynecomastia Hyperaldosteronism (HCC) Hyperlipidemia Hypertension Hypogonadism in male JERAMY (obstructive sleep apnea) has CPAP but has not been using it Overweight Palpitations Previous Surgical History PAST SURGICAL HISTORY Procedure Laterality Date COLONOSCOPY FLX DX W/COLLJ SPEC WHEN PFRMD 08/30/2014 Colonoscopy repeat in 10 years Family History FAMILY HISTORY Problem Relation Age of Onset Diabetes Mother Hypertension Mother Coronary Artery Disease Other none Diabetes Brother Twin Hypertension Brother Patient Allergies ALLERGIES Allergen Reactions Seasonal Allergies Other: See Comments Patient states he gets stuffed up Current Medications Current Outpatient Medications on File Prior to Visit Medication Sig testosterone cypionate (DEPO-TESTOSTERONE) 200 mg/mL injection Inject 1 mL intramuscularly every 2 weeks for 168 days. empagliflozin (JARDIANCE) 25 mg tablet Take 1 tablet by mouth once daily. Take 1 tablet once daily in the morning glimepiride (AMARYL) 4 mg tablet Take 2 tablets by mouth daily with breakfast. nitroglycerin sublingual (NITROSTAT) 0.4 mg SL tablet Dissolve 1 tablet under the tongue as needed. FOR CHEST PAIN. IF NO RELIEF CALL 911 amLODIPine (NORVASC) 10 mg tablet Take 1 tablet by mouth once daily. lisinopril (ZESTRIL, PRINIVIL) 40 mg tablet Take 1 tablet by mouth once daily. pravastatin (PRAVACHOL) 20 mg tablet Take 1 tablet by mouth daily at bedtime. metFORMIN (GLUCOPHAGE) 500 mg tablet Take 1 tablet by mouth twice daily with meals. metoprolol succinate ER (TOPROL XL) 25 mg 24 hr tablet Take 1 tablet by mouth once daily. (Patient not taking: Reported on 09/10/2022) CPAP Pt machine on recall list. Please change PAP setting to 4-11 cmH2O. Set ramp to start at 4 and ramp duration of 30 minutes. Also pleas fit with Dream Wisp nasal mask. blood sugar diagnostic (ShotlstUCH VERIO) test strip Test blood sugar(s) 1 times daily. Dx: Type 2 DM - Controlled E11.9 Insulin: No (Patient taking differently: as needed. Test blood sugar(s) 1 times daily. Dx: Type 2 DM - Controlled E11.9 Insulin: No ) lancets (ONE TOUCH DELICA) 33 gauge misc Test blood sugar(s) once daily. Dx: Type 2 DM - Controlled E11.9 Insulin: No Current Facility-Administered Medications on File Prior to Visit Medication testosterone cypionate 200 mg injection (DEPO-TESTOSTERONE) Social History Social History Tobacco Use Smoking status: Never Smokeless tobacco: Never Tobacco comments: tried once Substance Use Topics Alcohol use: Not Currently Comment: Rare use Drug use: No Review of Symptoms See HPI EXAM: BP 146/90 Pulse 83 Resp 16 Wt 90.4 kg (199 lb 3.2 oz) SpO2 97% BMI 30.05 kg/m General Appearance: Well appearing, alert, in no acute distress, well-hydrated, well nourished.. Skin: Skin color, texture, turgor normal, no suspicious rashes or lesions. Lungs: Lungs clear to auscultation. No wheezing, rhonchi, rales.. Heart: RRR without murmur, gallop, or rubs. No ectopy. Abdomen: Normal abdominal exam, Abdomen soft, non-tender. Bowel sounds normal. No masses, organomegaly. Extremities: No deformities, edema, skin discoloration, clubbing or cyanosis. Good capillary refill. . Health Maintenance List BP CONTROLLED (<130/80) due on 02/24/2019 DEPRESSION ASSESSMENT due on 07/05/2022 INFLUENZA(1) due on 01/01/2023 HBA1C due on 12/10/2022 HEPATITIS B(3 of 3 - 19+ 3-dose series) due on 12/14/2022 DILATED RETINAL EXAM due on 01/15/2023 DIABETIC FOOT EXAM due on 02/26/2023 URINE ALBUMIN:CREATININE RATIO due on 06/11/2023 LDL CHOLESTEROL due on 06/11/2023 ANNUAL PCP TEAM CHRONIC DISEASE VISIT due on 06/11/2023 COLORECTAL CANCER SCREENING due on 08/30/2024 DTAP,TDAP,TD(3 - Td or Tdap) due on 06/11/2032 HEPATITIS C SCREENING Completed HIV SCREENING Completed SHINGRIX VACCINE Completed COVID-19 VACCINE Completed PNEUMOCOCCAL Completed Data reviewed Component Latest Ref Rng & Units 06/11/2022 08/07/2022 Total Cholesterol, Nonfasting <200 mg/dL 175 Triglycerides, Nonfasting <150 mg/dL 314 (H) HDL Cholesterol, Nonfasting >39 mg/dL 39 (L) LDL Cholesterol, Nonfasting <100 mg/dL 73 Non HDL Cholesterol, Nonfasting <130 mg/dL 136 (H) VLDL Cholesterol, Nonfasting <30 mg/dL 63 (H) Total Chol/HDL Ratio, Nonfasting <5.10 mg/dL 4.49 LDL/HDL Ratio, Nonfasting <2.54 mg/dL 1.87 Creatinine, Ur Random (UCRR) 20.0 - 300.0 mg/dL 56.8 Albumin, Urine Random mg/L 158.5 Albumin/Creat Ratio <30 mg/g 279 (H) Hemoglobin A1C 4.3 - 5.6 % 6.5 (H) Estimated Average Glucose mg/dL 140 Testosterone Free 4.06 - 15.6 ng/dL 20.5 (H) Testosterone 240 - 950 ng/dL 653 PSA <2.60 ng/mL 1.11 Hep C Antibody IA Negative Negative Hep B Surface Ag Negative Negative Hep B Surface Ab, Qual Negative Negative Hep B Core Ab, Total Negative Negative ASSESSMENT/PLAN: 1. Type 2 diabetes mellitus with other diabetic kidney complication (HCC) - ICD9: 250.40, ICD10: E11.29 (primary diagnosis) - Controlled - Continue current medications - Counseled on healthy diet and regular exercise - Discussed need for and benefit of weight loss. BMI 30.05 kg/(m^2) - Follow up in 3 months, sooner should any other issues arise. - HGB A1C - COMP METABOLIC PANEL 2. Essential hypertension - ICD9: 401.9, ICD10: I10 - poor control - Begin metoprolol (Lopressor/Toprol) - Encouraged dietary sodium restriction/DASH diet - Recommended regular aerobic exercise. - Follow up in 1 month for BP recheck. - Reviewed risks of HTN and principles of treatment - Goal of BP <140/90 3. JERAMY (obstructive sleep apnea) - ICD9: 327.23, ICD10: G47.33 Patient states we should be getting a fax about settings for his machine. Will sign as soon as we get it and would recommend he use it nightly as directed. 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 Mychart message sent due to not wanting to disturb patient's sleep. Please leave encounter until message reviewed by patient. ----- Message from Leanna Rangel MD sent at 08/17/2022 8:20 AM EST ----- Normal testosterone level. Continue treatment as prescribed. documented in this encounter [facility] 08-13-2022 Note [facility] 08-13-2022 History of Present illness Narrative Patient presents for Testosterone injection. Denies any problems at this time. Brought own medication. Patient instructed on any SE of medication, verbalized understanding and agreed to proceed with treatment. Tolerated injection well. Maricruz Ozuna LPN documented in this encounter [facility] 08-10-2022 Miscellaneous Notes Order for testosterone placed. [facility] website checked and validated. All prescriptions have been APPROPRIATELY filled. No suspicious activity was identified. 08/10/2022 by Nayeli Zaragoza APRN.[employer] Patient scheduled for nurse visit 08/13/22 to receive Testosterone injection. Please place new administration order at this time. Maricruz Ozuna LPN documented in this encounter [facility] 07-30-2022 Note [facility] 07-30-2022 History of Present illness Narrative Patient presents for Testosterone injection. Denies any problems at this time. Brought own medication. Patient instructed on any SE of medication, verbalized understanding and agreed to proceed with treatment. Tolerated injection well. Maricruz Ozuna LPN documented in this encounter [facility] 07-29-2022 Miscellaneous Notes Spoke with pt at this time. States that he needs to change appt time for tomorrow d/t another appt he has scheduled. Was able to move to earlier in day. Pt verbalized acceptance of new time. Maricruz Ozuna LPN Pt called in and states he has a question to ask the OR nurse before his appointment tomorrow. Pt would not give this nurse the question, said to just have her call him back if she was in. Pt states, If she's in she's in, if not then she's not. . Please call Pt back if available. documented in this encounter [facility] 07-20-2022 Miscellaneous Notes Patient notified and verbalized understanding Milla Cesar Cma He still needs to get his testosterone level checked as discussed at last OV. Patient has been identified by name and date of : Yes Requested Prescriptions Pending Prescriptions Disp Refills testosterone cypionate (DEPO-TESTOSTERONE) 200 mg/mL injection 6 mL 1 Sig: Inject 1 mL intramuscularly every 2 weeks for 168 days. RX INSTRUCTIONS: Patient aware RX will be sent to pharmacy. No need to notify patient. Controlled medication - must be called in. Maricruz Ozuna LPN documented in this encounter [facility] 07-16-2022 Note [facility] 07-16-2022 History of Present illness Narrative Patient presents for Testosterone injection. Denies any problems at this time. Brought own medication. Patient instructed on any SE of medication, verbalized understanding and agreed to proceed with treatment. Tolerated injection well. Pt to also receive Hepatitis B vaccine. Maricruz Ozuna LPN documented in this encounter [facility] 07-08-2022 Miscellaneous Notes Pt was given a [employer] phone number. [phone] to for assitance. Luiza Malagon LPN I dont remember giving him this number. Was he given a handout for this? Pt called and he is has misplaced the phone number for [employer] he was given in the office. Please call pt with phone number. Bettina Ragland LPN documented in this encounter [facility] 06-18-2022 History of Present illness Narrative Patient presents for Testosterone injection. Denies any problems at this time. Brought own medication. Patient instructed on any SE of medication, verbalized understanding and agreed to proceed with treatment. Tolerated injection well. Pt to also receive Hep B vaccine. Maricruz Ozuna LPN documented in this encounter [facility] 06-16-2022 Miscellaneous Notes Orders approved. Please file order for Hepatitis B vaccine at this time. Maricruz Ozuna LPN Patient returns call and results and provider message reviewed. Patient verbalizes understanding. Patient asking if he could receive his first hepatitis B vaccine at appointment 06/18/2022 with OR nurse for testosterone injection. Placed on schedule for OR nurse and notified. Akua Biggs RN Patient telephoned, states will call back later when awake. We may need to reach back out for update. 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 Aubrie Dudley LPN ----- Message from Leanna Rangel MD sent at 06/15/2022 2:59 PM EST ----- Patient's diabetes is much better! A1c down to 6.5. continue current regimen. Will recheck at future OV. Urine albumin levels slightly from 1 year ago. Continue current regimen. Will monitor kidney function. Negative for immunity to hepatitis B. Recommend updating hepatitis B series at future OV. Hep C screening negative. Prostate cancer screening negative. Cholesterol looks good. No changes. documented in this encounter [facility] 06-11-2022 History of Present illness Narrative Chief Complaint Patient presents with: Physical: Reported fall onto knee a couple months ago HPI Trevor Byers is a 51 year old male who presents here today for annual physical. DIABETES MELLITUS: Mr. Byers was last seen 3 months ago. Since our last visit he denies excessive thirst, numbness, tingling or pain in extremities, new or unusual visual symptoms, and low sugar/hypoglycemic reactions. Admits to increased urination, but may be from his Jardiance. Follows a diabetic diet some of the time. He is compliant with medication(s) and is tolerating med(s) without any side effects. He reports checking his glucose on a 1-2 times per day schedule with sugars in the fasting 130-165 range. Random sugars 120-160 with most readings in the 130-150 range Patient's last HgA1C was Hemoglobin A1C (%) Date Value 03/12/2022 7.9 12/09/2021 11.5 06/05/2021 6.8 02/27/2021 7.0 ) Last Ophthalmology exam was within the past 12 months Last Podiatry exam was within the past 12 months JERAMY: patient states he is not using his CPAP because there is a recall on his machine and is waiting on [employer] to get a new machine. Has not called recently about this. Told previously to use it until he got a new machine. Discussed if he needed a new order we would send it in. Hypogonadism: Patient getting injections every 2 weeks. Last testosterone level in September was normal. States that his current dosage has not been helping as much with his energy/fatigue, but then again has not been sleeping much. Attributes poor sleep to his work schedule. Missed 2 doses recently. BPH: getting up 3 times at night to urinate. Denies weak stream, straining to urinate, hematuria. HTN well controlled on Lisinopril, metoprolol, amlodipine. Labs ordered prior to OV, but were not completed. PHQ-2 / Depression screen He in the past two weeks denies having felt down, depressed, hopeless or with little interest or pleasure in doing things. Got his flu shot at work earlier this year. Up to date on COVID. Would like Tdap and Prevnar 20 vaccine. Unsure if he has been vaccinated for hepatitis B. Past medical history, appointments, medications, allergies reviewed. Previous Medical History PAST MEDICAL HISTORY Diagnosis Date Abnormal ECG during exercise stress test 2016 BPH (benign prostatic hyperplasia) Diabetes mellitus type II (HCC) Diverticulosis Gynecomastia Hyperaldosteronism (HCC) Hyperlipidemia Hypertension Hypogonadism in male JERAMY (obstructive sleep apnea) has CPAP but has not been using it Overweight Palpitations Previous Surgical History PAST SURGICAL HISTORY Procedure Laterality Date COLONOSCOPY FLX DX W/COLLJ SPEC WHEN PFRMD 08/30/2014 Colonoscopy repeat in 10 years Family History FAMILY HISTORY Problem Relation Age of Onset Diabetes Mother Hypertension Mother Coronary Artery Disease Other none Diabetes Brother Twin Hypertension Brother Patient Allergies ALLERGIES Allergen Reactions Seasonal Allergies Other: See Comments Patient states he gets stuffed up Current Medications Current Outpatient Medications on File Prior to Visit Medication Sig metoprolol succinate ER (TOPROL XL) 25 mg 24 hr tablet Take 1 tablet by mouth once daily. metFORMIN (GLUCOPHAGE) 500 mg tablet Take 1 tablet by mouth twice daily with meals. empagliflozin (JARDIANCE) 25 mg tablet Take 1 tablet by mouth once daily. Take 1 tablet once daily in the morning glimepiride (AMARYL) 4 mg tablet Take 2 tablets by mouth daily with breakfast. nitroglycerin sublingual (NITROSTAT) 0.4 mg SL tablet Dissolve 1 tablet under the tongue as needed. FOR CHEST PAIN. IF NO RELIEF CALL 911 testosterone cypionate (DEPO-TESTOSTERONE) 200 mg/mL injection Inject 1 mL intramuscularly every 2 weeks for 168 days. amLODIPine (NORVASC) 10 mg tablet Take 1 tablet by mouth once daily. lisinopril (ZESTRIL, PRINIVIL) 40 mg tablet Take 1 tablet by mouth once daily. pravastatin (PRAVACHOL) 20 mg tablet Take 1 tablet by mouth daily at bedtime. CPAP Pt machine on recall list. Please change PAP setting to 4-11 cmH2O. Set ramp to start at 4 and ramp duration of 30 minutes. Also pleas fit with Dream Wisp nasal mask. lancets (ONE TOUCH DELICA) 33 gauge misc Test blood sugar(s) once daily. Dx: Type 2 DM - Controlled E11.9 Insulin: No syringe with needle, safety 3 mL 23 gauge x 1 1/2 syrg 1 Each every 2 weeks. (Patient not taking: Reported on 06/11/2022) blood sugar diagnostic (ONETOUCH VERIO) test strip Test blood sugar(s) 1 times daily. Dx: Type 2 DM - Controlled E11.9 Insulin: No (Patient taking differently: as needed. Test blood sugar(s) 1 times daily. Dx: Type 2 DM - Controlled E11.9 Insulin: No ) Current Facility-Administered Medications on File Prior to Visit Medication testosterone cypionate 200 mg injection (DEPO-TESTOSTERONE) Social History Social History Tobacco Use Smoking status: Never Smokeless tobacco: Never Tobacco comments: tried once Substance Use Topics Alcohol use: Yes Alcohol/week: 2.0 standard drinks Types: 2 Cans of Beer (12oz) per week Comment: occasional use Drug use: No Review of Symptoms REVIEW OF SYSTEMS GENERAL: No weight loss, malaise or fevers HEENT: Negative for frequent or significant headaches, No changes in hearing or vision, no nose bleeds or other nasal problems NECK: Negative for lumps, goiter, pain and significant neck swelling RESPIRATORY: Negative for cough, hemoptysis, wheezing, COPD, dyspnea or shortness of breath CARDIOVASCULAR: Negative for chest pain, leg swelling, hypertension, CHF or palpitations GI: No nausea, vomiting, or diarrhea : See HPI MUSCULOSKELETAL: Complaining of improving left knee pain after fall at work 2 months ago. Denies erythema, swelling, bruising, catching, locking, giving out. SKIN: Negative for lesions, rash, and itching EXAM: BP 138/76 Pulse 80 Resp 16 Ht 173.4 cm (5' 8.27 ) Wt 91.3 kg (201 lb 3.2 oz) SpO2 98% BMI 30.35 kg/m General Appearance: Well appearing, alert, in no acute distress, well-hydrated, well nourished.. Skin: Skin color, texture, turgor normal, no suspicious rashes or lesions. Head: Normocephalic, no masses, lesions, tenderness or abnormalities. Eyes: Anicteric sclera. Pupils are equally round and reactive to light. Extraocular movements are intact. . Ears: External ears normal, canals clear. Oropharynx: Lips, mucosa, and tongue normal, teeth and gums normal, oropharynx normal. Neck: Supple, no adenopathy; thyroid symmetric, normal size, no bruits. Lungs: Lungs clear to auscultation. No wheezing, rhonchi, rales.. Heart: RRR without murmur, gallop, or rubs. No ectopy. Abdomen: Normal abdominal exam, Abdomen soft, non-tender. Bowel sounds normal. No masses, organomegaly. Extremities: No deformities, edema, skin discoloration, clubbing or cyanosis. Good capillary refill. Musculoskeletal: Left knee non tender to palpation without swelling, erythema, bruising. Normal ROM. No crepitus. Health Maintenance List HEPATITIS B(1 of 3 - 3-dose series) Never done PNEUMOCOCCAL(2 - PCV) due on 03/17/2013 BP CONTROLLED (<130/80) due on 02/24/2019 DEPRESSION ASSESSMENT Never done INFLUENZA(1) due on 03/05/2022 DTAP,TDAP,TD(2 - Td or Tdap) due on 03/17/2022 URINE ALBUMIN:CREATININE RATIO due on 06/05/2022 HBA1C due on 09/09/2022 LDL CHOLESTEROL due on 12/09/2022 DILATED RETINAL EXAM due on 01/15/2023 DIABETIC FOOT EXAM due on 02/26/2023 ANNUAL PCP TEAM CHRONIC DISEASE VISIT due on 02/26/2023 COLORECTAL CANCER SCREENING due on 08/30/2024 HEPATITIS C SCREENING Completed HIV SCREENING Completed SHINGRIX VACCINE Completed COVID-19 VACCINE Completed Data reviewed Component Latest Ref Rng & Units 02/25/2022 03/12/2022 Protein, Total 6.3 - 8.0 g/dL 7.8 7.6 Albumin 3.9 - 4.9 g/dL 4.9 5.1 (H) Calcium 8.5 - 10.2 mg/dL 9.9 9.9 Bilirubin, Total 0.2 - 1.3 mg/dL 0.7 1.1 Alkaline Phosphatase 38 - 113 U/L 68 66 AST 14 - 40 U/L 18 17 ALT 10 - 54 U/L 20 25 Glucose 74 - 99 mg/dL 183 (H) 175 (H) BUN 9 - 24 mg/dL 34 (H) 19 Creatinine 0.73 - 1.22 mg/dL 1.61 (H) 1.30 (H) Sodium 136 - 144 mmol/L 137 140 Potassium 3.7 - 5.1 mmol/L 3.1 (L) 3.8 Chloride 97 - 105 mmol/L 95 (L) 103 CO2 22 - 30 mmol/L 27 24 Anion Gap 9 - 18 mmol/L 15 13 eGFR >=60 mL/min/1.73m 51 (L) 66 Color Yellow Light Yellow Clarity Clear Clear Glucose, Urine Negative 3+ (A) Bilirubin, Urine Negative Negative Ketones, Urine Negative Negative Specific [place], Ur 1.005 - 1.030 1.026 Hemoglobin/Blood,Ur Negative 1+ (A) pH, Urine 5.0 - 8.0 6.0 Protein, Urine Negative 2+ (A) Urobilinogen Negative Negative Nitrites Negative Negative Leukest Negative Negative WBC, Urine 0-5 /HPF 0-5 /HPF RBC, Urine 0-3 /HPF 0-3 /HPF Hemoglobin A1C 4.3 - 5.6 % 7.9 (H) Estimated Average Glucose mg/dL 180 ASSESSMENT/PLAN: 1. Annual physical exam - ICD9: V70.0, ICD10: Z00.00 (primary diagnosis) - Counseled on healthy diet and regular exercise - Discussed need for and benefit of weight loss. BMI 30.35 kg/(m^2) - Counseled on limiting alcohol intake to 2 drinks per day - Follow up for annual exam in one year - [facility] 2. Type 2 diabetes mellitus with other diabetic kidney complication (HCC) - ICD9: 250.40, ICD10: E11.29 poorly controlled - Continue current medications - Check HgA1C - Blood glucose monitoring on a once a day schedule - Encouraged regular aerobic exercise and weight loss - Follow up in 3 months, sooner should any other issues arise. 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 - EMPAGLIFLOZIN 25 MG TABLET - GLIMEPIRIDE 4 MG TABLET 3. Hypogonadism in male - ICD9: 257.2, ICD10: E29.1 Continue testosterone supplement. With nocturia, will check PSA. Patient missed last 2 doses of testosterone. Will have him recheck level in 1 month. - TESTOSTERONE, FREE AND TOTAL - TESTOSTERONE, FREE AND TOTAL - PSA/PROSTSPECAG DIAG 4. Essential hypertension - ICD9: 401.9, ICD10: I10 - good control - Continue current medication(s) - Encouraged dietary sodium restriction/DASH diet - Recommended regular aerobic exercise. - Reviewed risks of HTN and principles of treatment - Goal of BP <140/90 5. Mixed hyperlipidemia - ICD9: 272.2, ICD10: E78.2 - to be determined upon return of lab results - Continue current medication. - Encouraged following a low fat, low cholesterol diet. - Discussed the benefits of regular aerobic exercise and weight loss. 6. JERAMY (obstructive sleep apnea) - ICD9: 327.23, ICD10: G47.33 Advised patient to call medical aides teacher about getting replacement. 7. Nocturia - ICD9: 788.43, ICD10: R35.1 - PSA/PROSTSPECAG DIAG 8. Acute pain of left knee - ICD9: 719.46, ICD10: M25.562 Normal exam today. Discussed ice and OTC analgesics. Red flags for re-assessment reviewed with patient in detail. 9. Need for vaccination - ICD9: V05.9, ICD10: Z23 - PNEUMOCOCCAL VACCINE (PREVNAR 20) - TDAP VACCINE AGE 7+ IM Leanna Rangel MD documented in this encounter [facility] 06-04-2022 Miscellaneous Notes Patient requesting refill of metoprolol succinate ER 25 mg. Asking for 90 day supply, if PCP agreeable. Script pended for review. Thank you. Patient has been identified by name and date of : Yes Patient phones for refill(s): Requested Prescriptions Pending Prescriptions Disp Refills metoprolol succinate ER (TOPROL XL) 25 mg 24 hr tablet 90 tablet Sig: Take 1 tablet by mouth once daily. Date of last office visit in primary care: 02/26/22 Last 2 Encounter Wt Readings: Date: Wt: 02/26/2022 86.9 kg (191 lb 9.6 oz) 01/08/2022 90.3 kg (199 lb) Previous labs/tests for medication: Blood Pressure: BUN (mg/dL) Date Value 03/12/2022 19 06/05/2021 19 Sodium (mmol/L) Date Value 03/12/2022 140 06/05/2021 138 Last 1 Encounter BP Readings: Date: BP: 03/12/2022 136/82[BP Ollie average[ Blood Counts: WBC (k/uL) Date Value 12/09/2021 5.29 02/27/2021 5.98 RBC (m/uL) Date Value 12/09/2021 5.58 02/27/2021 4.86 Hematocrit (%) Date Value 12/09/2021 47.8 02/27/2021 44.3 Hemoglobin (g/dL) Date Value 12/09/2021 15.7 02/27/2021 14.3 Platelet Count (k/uL) Date Value 12/09/2021 231 02/27/2021 280 Liver Function: ALT (U/L) Date Value 03/12/2022 25 06/05/2021 20 AST (U/L) Date Value 03/12/2022 17 06/05/2021 14 Potassium: No components found for: POT Please advise. Thank you. Sheryl Munoz RN documented in this encounter [facility] 04-23-2022 History of Present illness Narrative Patient presents for Testosterone injection. Denies any problems at this time. Brought own medication. Patient instructed on any SE of medication, verbalized understanding and agreed to proceed with treatment. Tolerated injection well. Maricruz Ozuna LPN documented in this encounter [facility] 04-15-2022 Miscellaneous Notes Orders approved. Patient scheduled for nurse visit 04/23/22 to receive Testosterone injection. Please place new administration order at this time. Maricruz Ozuna LPN documented in this encounter [facility] 04-09-2022 History of Present illness Narrative Patient presents for Testosterone injection. Denies any problems at this time. Brought own medication. Patient instructed on any SE of medication, verbalized understanding and agreed to proceed with treatment. Tolerated injection well. Maricruz Ozuna LPN documented in this encounter [facility] 03-26-2022 History of Present illness Narrative Patient presents for Testosterone injection. Denies any problems at this time. Brought own medication. Patient instructed on any SE of medication, verbalized understanding and agreed to proceed with treatment. Tolerated injection well. Pt to also receive COVID booster. Maricruz Ozuna LPN documented in this encounter [facility] 03-16-2022 Miscellaneous Notes Patient notified of results, verbalizes understanding of instructions. Made aware that prescription was sent to [facility]. Aubrie Dudley LPN Please call patient and let him know his a1c has improved significantly. Still above goal of less than 7%. Increase jardiance to 25 mg daily. Continue to take blood sugars twice a day and update me in one month with reading, sooner if getting lows. Improved kidney function, continue current medications. Urine unchanged. Will continue to monitor. Nayeli Zaragoza [email or web address] documented in this encounter [facility] 03-13-2022 Miscellaneous Notes Patient notified and verbalized understanding Milla Cesar Cma Bp looks good. Manual Readin/85 Pulse: 73 BP Ollie average: 136/82 P: 73 Repeat BP Check: 149/87 P80 #1 133/79 P68 #2 128/82 P69 #3 131/79 P70 #4 137/84 P74 #5 137/80 P74 #6 Reason for blood pressure check - Last BP elevated and Medication adjustment Patient is: Taking medication as prescribed Yes Took medication today Yes If no, date medication last taken N/A Experiencing side effects No BP was elevated at last appt 02/26/22. Chlorthalidone was d/c and he was started on Toprol XL 25mg daily. Tolerating medication well. Denies any chest pain, shortness of breath, dizziness, or headaches. Daily caffeine use; none today. No personal history of tobacco use; no current exposure. Alert and oriented. Pt has been identified by name and birthdate: Yes Allergies reviewed: Yes Latex allergy: no. Medication - prescribed and OTC reviewed and updated: Yes Do you need any prescription refills prior to your next visit: No Health Maintenance: Reviewed and not up to date and provider notified Patient also presents for Testosterone injection. Denies any problems at this time. Brought own medication. Patient instructed on any SE of medication, verbalized understanding and agreed to proceed with treatment. Tolerated injection well. Patient advised that he would be contacted after review by PCP. Maricruz Ozuna LPN documented in this encounter [facility] 03-12-2022 History of Present illness Narrative Manual Readin/85 Pulse: 73 BP Ollie average: 136/82 P: 73 Repeat BP Check: 149/87 P80 #1 133/79 P68 #2 128/82 P69 #3 131/79 P70 #4 137/84 P74 #5 137/80 P74 #6 Reason for blood pressure check - Last BP elevated and Medication adjustment Patient is: Taking medication as prescribed Yes Took medication today Yes If no, date medication last taken N/A Experiencing side effects No BP was elevated at last appt 02/26/22. Chlorthalidone was d/c and he was started on Toprol XL 25mg daily. Tolerating medication well. Denies any chest pain, shortness of breath, dizziness, or headaches. Daily caffeine use; none today. No personal history of tobacco use; no current exposure. Alert and oriented. Pt has been identified by name and birthdate: Yes Allergies reviewed: Yes Latex allergy: no. Medication - prescribed and OTC reviewed and updated: Yes Do you need any prescription refills prior to your next visit: No Health Maintenance: Reviewed and not up to date and provider notified Patient also presents for Testosterone injection. Denies any problems at this time. Brought own medication. Patient instructed on any SE of medication, verbalized understanding and agreed to proceed with treatment. Tolerated injection well. Patient advised that he would be contacted after review by PCP. Maricruz Ozuna LPN documented in this encounter [facility] 02-26-2022 Instructions Leanna Rangel MD - 02/26/2022 3:32 PM EDT Please stop the chlorthalidone today. Take today's dose of potassium and then stop the potassium tomorrow. You can start the Metoprolol XL today. documented in this encounter [facility] 02-26-2022 History of Present illness Narrative iaChief Complaint Patient presents with: Follow Up HPI Trevor Byers is a 51 year old male who presents here today for 2 month follow up on DM. DIABETES MELLITUS: Mr. Byers was last seen 2 months ago. Since our last visit he denies excessive thirst or increased frequency of urination, numbness, tingling or pain in extremities, new or unusual visual symptoms, and low sugar/hypoglycemic reactions. Follows a diabetic diet most of the time. He is compliant with medication(s) and is tolerating med(s) without any side effects. He reports checking his glucose on a twice a day schedule with sugars in the fasting is in the low 200's range. Patient's last HgA1C was Hemoglobin A1C (%) Date Value 12/09/2021 11.5 09/05/2021 8.1 06/05/2021 6.8 02/27/2021 7.0 ) Last Ophthalmology exam was within the past 12 months Last Podiatry exam was within the past 12 months Reviewed improving BETHANY, but is not down to normal range. Discussed cessation of his chlorthalidone to try to correct BETHANY and hypokalemia. Also notes that he had some friends in from back home and was drinking a lot of alcohol for a couple weeks. Has not had any alcohol in the last week. Not taking NSAIDs. Pushing PO fluids as discussed previously. Also noted he has 1+ hematuria which is similar to 5 years ago. Had hematuria evaluation by urology in 2017 which was negative. Denies gross hematuria or other urinary symptoms. Past medical history, appointments, medications, allergies reviewed. Previous Medical History PAST MEDICAL HISTORY Diagnosis Date Abnormal ECG during exercise stress test 2016 BPH (benign prostatic hyperplasia) Diabetes mellitus type II (HCC) Diverticulosis Gynecomastia Hyperaldosteronism (HCC) Hyperlipidemia Hypertension Hypogonadism in male JERAMY (obstructive sleep apnea) has CPAP but has not been using it Overweight Palpitations Previous Surgical History PAST SURGICAL HISTORY Procedure Laterality Date COLONOSCOPY FLX DX W/COLLJ SPEC WHEN PFRMD 08/30/2014 Colonoscopy repeat in 10 years Family History FAMILY HISTORY Problem Relation Age of Onset Diabetes Mother Hypertension Mother Coronary Artery Disease Other none Diabetes Brother Twin Hypertension Brother Patient Allergies ALLERGIES Allergen Reactions Seasonal Allergies Other: See Comments Patient states he gets stuffed up Current Medications Current Outpatient Medications on File Prior to Visit Medication Sig empagliflozin (JARDIANCE) 10 mg tablet Take 1 tablet by mouth once daily. Take 1 tablet once daily in the morning glimepiride (AMARYL) 4 mg tablet Take 2 tablets by mouth daily with breakfast. chlorthalidone (HYGROTON) 50 mg tablet Take 1 tablet by mouth once daily. amLODIPine (NORVASC) 10 mg tablet Take 1 tablet by mouth once daily. lisinopril (ZESTRIL, PRINIVIL) 40 mg tablet Take 1 tablet by mouth once daily. pravastatin (PRAVACHOL) 20 mg tablet Take 1 tablet by mouth daily at bedtime. potassium chloride ER (KLOR-CON M20) 20 mEq tablet Take 2 tablets by mouth twice daily. nitroglycerin sublingual (NITROSTAT) 0.4 mg SL tablet Dissolve 1 tablet under the tongue as needed. FOR CHEST PAIN. IF NO RELIEF CALL 911 testosterone cypionate (DEPO-TESTOSTERONE) 200 mg/mL injection Inject 1 mL intramuscularly every 2 weeks for 168 days. CPAP Pt machine on recall list. Please change PAP setting to 4-11 cmH2O. Set ramp to start at 4 and ramp duration of 30 minutes. Also pleas fit with Dream Wisp nasal mask. syringe with needle, safety 3 mL 23 gauge x 1 1/2 syrg 1 Each every 2 weeks. (Patient not taking: Reported on 01/03/2021 ) blood sugar diagnostic (ONETOUCH VERIO) test strip Test blood sugar(s) 1 times daily. Dx: Type 2 DM - Controlled E11.9 Insulin: No (Patient taking differently: as needed. Test blood sugar(s) 1 times daily. Dx: Type 2 DM - Controlled E11.9 Insulin: No ) lancets (ONE TOUCH DELICA) 33 gauge misc Test blood sugar(s) once daily. Dx: Type 2 DM - Controlled E11.9 Insulin: No Current Facility-Administered Medications on File Prior to Visit Medication testosterone cypionate 200 mg injection (DEPO-TESTOSTERONE) Social History Social History Tobacco Use Smoking status: Never Smokeless tobacco: Never Tobacco comments: tried once Substance Use Topics Alcohol use: Yes Alcohol/week: 2.0 standard drinks Types: 2 Cans of Beer (12oz) per week Comment: occasional use Drug use: No Review of Symptoms REVIEW OF SYSTEMS See HPI EXAM: BP 130/82 Pulse 80 Resp 16 Wt 86.9 kg (191 lb 9.6 oz) SpO2 97% BMI 28.87 kg/m General Appearance: Well appearing, alert, in no acute distress, well-hydrated, well nourished.. Skin: Skin color, texture, turgor normal, no suspicious rashes or lesions. Lungs: Lungs clear to auscultation. No wheezing, rhonchi, rales.. Heart: RRR without murmur, gallop, or rubs. No ectopy. Abdomen: Normal abdominal exam, Abdomen soft, non-tender. Bowel sounds normal. No masses, organomegaly. Extremities: No deformities, edema, skin discoloration, clubbing or cyanosis. Good capillary refill. Feet: Shoes and socks removed, No deformities, ulcers, calluses, normal distal pulses, and sensitive to 10 gm monofilament Early ingrown toenail on right great toe without infection. Health Maintenance List HEPATITIS B(1 of 3 - 3-dose series) Never done PNEUMOCOCCAL(2 - PCV) due on 03/17/2013 DEPRESSION SCREENING due on 11/28/2021 DIABETIC FOOT EXAM due on 02/27/2022 DTAP,TDAP,TD(2 - Td or Tdap) due on 03/17/2022 INFLUENZA(1) due on 03/05/2022 HBA1C due on 03/11/2022 URINE ALBUMIN:CREATININE RATIO due on 06/05/2022 LDL CHOLESTEROL due on 12/09/2022 ANNUAL PCP TEAM CHRONIC DISEASE VISIT due on 01/08/2023 BP CONTROLLED (<130/80) due on 01/08/2023 DILATED RETINAL EXAM due on 01/15/2023 COLORECTAL CANCER SCREENING due on 08/30/2024 HEPATITIS C SCREENING Completed HIV SCREENING Completed SHINGRIX VACCINE Completed COVID-19 VACCINE Completed Data reviewed Component Latest Ref Rng & Units 12/09/2021 01/08/2022 02/25/2022 Protein, Total 6.3 - 8.0 g/dL 8.0 7.5 7.8 Albumin 3.9 - 4.9 g/dL 5.0 (H) 4.8 4.9 Calcium 8.5 - 10.2 mg/dL 10.2 10.3 (H) 9.9 Bilirubin, Total 0.2 - 1.3 mg/dL 1.0 0.3 0.7 Alkaline Phosphatase 38 - 113 U/L 76 54 68 AST 14 - 40 U/L 19 19 18 ALT 10 - 54 U/L 20 16 20 Glucose 74 - 99 mg/dL 295 (H) 152 (H) 183 (H) BUN 9 - 24 mg/dL 26 (H) 21 34 (H) Creatinine 0.73 - 1.22 mg/dL 1.44 (H) 1.78 (H) 1.61 (H) Sodium 136 - 144 mmol/L 135 (L) 141 137 Potassium 3.7 - 5.1 mmol/L 3.5 (L) 3.7 3.1 (L) Chloride 97 - 105 mmol/L 95 (L) 101 95 (L) CO2 22 - 30 mmol/L 28 24 27 Anion Gap 9 - 18 mmol/L 12 16 15 eGFR >=60 mL/min/1.73m 59 (L) 45 (L) 51 (L) Color Yellow Light Yellow Clarity Clear Clear Glucose, Urine Negative 3+ (A) Bilirubin, Urine Negative Negative Ketones, Urine Negative Negative Specific [place], Ur 1.005 - 1.030 1.021 Hemoglobin/Blood,Ur Negative 1+ (A) pH, Urine 5.0 - 8.0 6.0 Protein, Urine Negative 1+ (A) Urobilinogen Negative Negative Nitrites Negative Negative Leukest Negative Negative WBC, Urine 0-5 /HPF 0-5 /HPF RBC, Urine 0-3 /HPF 0-3 /HPF Epithelial Cells /HPF Few WBC 3.70 - 11.00 k/uL 5.29 RBC 4.20 - 6.00 m/uL 5.58 Hemoglobin 13.0 - 17.0 g/dL 15.7 Hematocrit 39.0 - 51.0 % 47.8 MCV 80.0 - 100.0 fL 85.7 MCH 26.0 - 34.0 pg 28.1 MCHC 30.5 - 36.0 g/dL 32.8 RDW-CV 11.5 - 15.0 % 12.8 Platelet Count 150 - 400 k/uL 231 MPV 9.0 - 12.7 fL 10.4 Absolute nRBC <0.01 k/uL <0.01 Total Cholesterol, Nonfasting <200 mg/dL 216 (H) Triglycerides, Nonfasting <150 mg/dL 325 (H) HDL Cholesterol, Nonfasting >39 mg/dL 41 LDL Cholesterol, Nonfasting <100 mg/dL 110 (H) Non HDL Cholesterol, Nonfasting <130 mg/dL 175 (H) VLDL Cholesterol, Nonfasting <30 mg/dL 65 (H) Total Chol/HDL Ratio, Nonfasting <5.10 mg/dL 5.27 (H) LDL/HDL Ratio, Nonfasting <2.54 mg/dL 2.68 (H) Hemoglobin A1C 4.3 - 5.6 % 11.5 (H) Estimated Average Glucose mg/dL 283 ASSESSMENT/PLAN: 1. Type 2 diabetes mellitus with other diabetic kidney complication (HCC) - ICD9: 250.40, ICD10: E11.29 (primary diagnosis) poorly controlled - Continue current medications - Blood glucose monitoring on a twice a day schedule - Encouraged regular aerobic exercise and weight loss - Follow up in 3 month, sooner should any other issues arise. 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 - HGB A1C - CONSULT TO PODIATRY 2. BETHANY (acute kidney injury) (HCC) - ICD9: 584.9, ICD10: N17.9 Stop chlorthalidone and will change to metoprolol to control BP. Push PO fluids, work on DM control with diet, avoid NSAIDS. - COMP METABOLIC PANEL 3. Essential hypertension - ICD9: 401.9, ICD10: I10 - good control - Add metoprolol (Lopressor/Toprol) - Discontinue Chlorthalidone - Encouraged dietary sodium restriction/DASH diet - Recommended regular aerobic exercise. - Follow up in 1 month for BP recheck. - Reviewed risks of HTN and principles of treatment - Goal of BP <140/90 - Goal of BP <130/80 - METOPROLOL SUCCINATE ER 25 MG TABLET,EXTENDED RELEASE 24 HR 4. Microscopic hematuria - ICD9: 599.72, ICD10: R31.29 Chronic going back to 7 years ago. Push PO fliuds. Will repeat in 1-2 months. - URINALYSIS, WITH MICROSCOPIC 5. Ingrown toenail - ICD9: 703.0, ICD10: L60.0 Advised to soak toe and lift nailbed. F/u with podiatry. - CONSULT TO PODIATRY Leanna Rangel MD documented in this encounter [facility] 02-26-2022 History of Present illness Narrative Patient presents for Testosterone injection. Denies any problems at this time. Brought own medication. Patient instructed on any SE of medication, verbalized understanding and agreed to proceed with treatment. Tolerated injection well. Maricruz Ozuna LPN documented in this encounter [facility] 02-12-2022 History of Present illness Narrative Patient presents for Testosterone injection. Denies any problems at this time. Brought own medication. Patient instructed on any SE of medication, verbalized understanding and agreed to proceed with treatment. Tolerated injection well. 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 Aubrie Dudley LPN rx printed as requested. Please notify patient so he can come pick this up. Patient has been identified by name and date of : Yes Jardiance. Patient says he had discussed this with doctor. It is not showing on medication list. RX INSTRUCTIONS: Patient would like to crop picker the hard copy of the prescription. Please call patient when it is ready for crop picker Marija Andrew documented in this encounter [facility] 01-29-2022 History of Present illness Narrative Patient presents for Testosterone injection. Denies any problems at this time. Brought own medication. Patient instructed on any SE of medication, verbalized understanding and agreed to proceed with treatment. Tolerated injection well. Maricruz Ozuna LPN documented in this encounter [facility] 01-14-2022 History of Present illness Narrative Patient presents for Testosterone injection. Denies any problems at this time. Brought own medication. Patient instructed on any SE of medication, verbalized understanding and agreed to proceed with treatment. Tolerated injection well. Maricruz Ozuna LPN documented in this encounter [facility] 01-08-2022 History of Present illness Narrative Chief Complaint Patient presents with: Follow Up: 1 month HPI Trevor Byers is a 51 year old male who presents here today for 1 month follow up on his diabetes. Patient was not able to get the Jardiance due to cost. Referral was placed to who gave him a number to call for Savings card. Patient did not call the number, so has just been taking his metformin again and Glimepiride. Checking sugars 2 times per day with fasting readings 110-160 range typically. After meals, readings are still high in the 150-280 range. 30 day average: 180. Overall, readings do appear to be improving. Has been counting his carbs as instructed. Has noticed less urination since his readings have improved. Due for repeat CMP today to recheck his GFR on the metformin. Past medical history, appointments, medications, allergies reviewed. Previous Medical History PAST MEDICAL HISTORY Diagnosis Date Abnormal ECG during exercise stress test 2016 BPH (benign prostatic hyperplasia) Diabetes mellitus type II (HCC) Diverticulosis Gynecomastia Hyperaldosteronism (HCC) Hyperlipidemia Hypertension Hypogonadism in male JERAMY (obstructive sleep apnea) has CPAP but has not been using it Overweight Palpitations Previous Surgical History PAST SURGICAL HISTORY Procedure Laterality Date COLONOSCOPY FLX DX W/COLLJ SPEC WHEN PFRMD 08/30/2014 Colonoscopy repeat in 10 years Family History FAMILY HISTORY Problem Relation Age of Onset Diabetes Mother Hypertension Mother Coronary Artery Disease Other none Diabetes Brother Twin Hypertension Brother Patient Allergies ALLERGIES Allergen Reactions Seasonal Allergies Other: See Comments Patient states he gets stuffed up Current Medications Current Outpatient Medications on File Prior to Visit Medication Sig glimepiride (AMARYL) 4 mg tablet Take 1 tablet by mouth daily with breakfast. testosterone cypionate (DEPO-TESTOSTERONE) 200 mg/mL injection Inject 1 mL intramuscularly every 2 weeks for 168 days. chlorthalidone (HYGROTON) 50 mg tablet Take 1 tablet by mouth once daily. amLODIPine (NORVASC) 10 mg tablet Take 1 tablet by mouth once daily. lisinopril (ZESTRIL, PRINIVIL) 40 mg tablet Take 1 tablet by mouth once daily. metFORMIN (GLUCOPHAGE) 500 mg tablet TAKE 2 TABLETS BY MOUTH TWICE A DAY WITH MEALS pravastatin (PRAVACHOL) 20 mg tablet Take 1 tablet by mouth daily at bedtime. potassium chloride ER (KLOR-CON M20) 20 mEq tablet Take 2 tablets by mouth twice daily. nitroglycerin sublingual (NITROSTAT) 0.4 mg SL tablet Dissolve 1 tablet under the tongue as needed. FOR CHEST PAIN. IF NO RELIEF CALL 911 empagliflozin (JARDIANCE) 10 mg tablet Take 1 tablet by mouth daily with breakfast. (Patient not taking: Reported on 01/08/2022 ) CPAP Pt machine on recall list. Please change PAP setting to 4-11 cmH2O. Set ramp to start at 4 and ramp duration of 30 minutes. Also pleas fit with Dream Wisp nasal mask. syringe with needle, safety 3 mL 23 gauge x 1 1/2 syrg 1 Each every 2 weeks. (Patient not taking: Reported on 01/03/2021 ) blood sugar diagnostic (ONETOUCH VERIO) test strip Test blood sugar(s) 1 times daily. Dx: Type 2 DM - Controlled E11.9 Insulin: No (Patient taking differently: as needed. Test blood sugar(s) 1 times daily. Dx: Type 2 DM - Controlled E11.9 Insulin: No ) lancets (ONE TOUCH DELICA) 33 gauge misc Test blood sugar(s) once daily. Dx: Type 2 DM - Controlled E11.9 Insulin: No Current Facility-Administered Medications on File Prior to Visit Medication testosterone cypionate 200 mg injection (DEPO-TESTOSTERONE) Social History Social History Tobacco Use Smoking status: Never Smoker Smokeless tobacco: Never Used Tobacco comment: tried once Substance Use Topics Alcohol use: Yes Alcohol/week: 2.0 standard drinks Types: 2 Cans of Beer (12oz) per week Comment: occasional use Drug use: No Review of Symptoms REVIEW OF SYSTEMS See HPI EXAM: BP 118/64 Pulse 90 Resp 16 Wt 90.3 kg (199 lb) SpO2 97% BMI 29.99 kg/m General Appearance: Well appearing, alert, in no acute distress, well-hydrated, well nourished. Skin: Skin color, texture, turgor normal, no suspicious rashes or lesions. Lungs: Lungs clear to auscultation. No wheezing, rhonchi, rales.. Heart: RRR without murmur, gallop, or rubs. No ectopy. Health Maintenance List HEPATITIS B(1 of 3 - Risk 3-dose series) Never done PNEUMOCOCCAL(2 - PCV) due on 03/17/2013 BP CONTROLLED (<130/80) due on 02/24/2019 DEPRESSION SCREENING due on 11/28/2021 DILATED RETINAL EXAM due on 01/02/2022 DIABETIC FOOT EXAM due on 02/27/2022 INFLUENZA(1) due on 03/05/2022 HBA1C due on 03/11/2022 DTAP,TDAP,TD(2 - Td or Tdap) due on 03/17/2022 URINE ALBUMIN:CREATININE RATIO due on 06/05/2022 LDL CHOLESTEROL due on 12/09/2022 ANNUAL PCP TEAM CHRONIC DISEASE VISIT due on 01/08/2023 COLORECTAL CANCER SCREENING due on 08/30/2024 HEPATITIS C SCREENING Completed HIV SCREENING Completed SHINGRIX VACCINE Completed COVID-19 VACCINE Completed Data reviewed Component Latest Ref Rng & Units 09/05/2021 09/25/2021 12/09/2021 Protein, Total 6.3 - 8.0 g/dL 7.6 7.7 8.0 Albumin 3.9 - 4.9 g/dL 4.8 4.9 5.0 (H) Calcium 8.5 - 10.2 mg/dL 10.6 (H) 10.3 (H) 10.2 Bilirubin, Total 0.2 - 1.3 mg/dL 0.5 0.4 1.0 Alkaline Phosphatase 38 - 113 U/L 67 70 76 AST 14 - 40 U/L 14 21 19 ALT 10 - 54 U/L 23 26 20 Glucose 74 - 99 mg/dL 218 (H) 190 (H) 295 (H) BUN 9 - 24 mg/dL 21 21 26 (H) Creatinine 0.73 - 1.22 mg/dL 1.88 (H) 1.31 (H) 1.44 (H) Sodium 136 - 144 mmol/L 139 138 135 (L) Potassium 3.7 - 5.1 mmol/L 3.8 3.5 (L) 3.5 (L) Chloride 97 - 105 mmol/L 99 99 95 (L) CO2 22 - 30 mmol/L 26 25 28 Anion Gap 9 - 18 mmol/L 14 14 12 eGFR >=60 mL/min/1.73m 43 (L) 66 59 (L) WBC 3.70 - 11.00 k/uL 5.29 RBC 4.20 - 6.00 m/uL 5.58 Hemoglobin 13.0 - 17.0 g/dL 15.7 Hematocrit 39.0 - 51.0 % 47.8 MCV 80.0 - 100.0 fL 85.7 MCH 26.0 - 34.0 pg 28.1 MCHC 30.5 - 36.0 g/dL 32.8 RDW-CV 11.5 - 15.0 % 12.8 Platelet Count 150 - 400 k/uL 231 MPV 9.0 - 12.7 fL 10.4 Absolute nRBC <0.01 k/uL <0.01 Total Cholesterol, Nonfasting <200 mg/dL 216 (H) Triglycerides, Nonfasting <150 mg/dL 325 (H) HDL Cholesterol, Nonfasting >39 mg/dL 41 LDL Cholesterol, Nonfasting <100 mg/dL 110 (H) Non HDL Cholesterol, Nonfasting <130 mg/dL 175 (H) VLDL Cholesterol, Nonfasting <30 mg/dL 65 (H) Total Chol/HDL Ratio, Nonfasting <5.10 mg/dL 5.27 (H) LDL/HDL Ratio, Nonfasting <2.54 mg/dL 2.68 (H) Hemoglobin A1C 4.3 - 5.6 % 8.1 (H) 11.5 (H) Estimated Average Glucose mg/dL 186 283 Testosterone Free 4.06 - 15.6 ng/dL 18.4 (H) Testosterone 240 - 950 ng/dL 391 ASSESSMENT/PLAN: 1. Hypogonadism in male - ICD9: 257.2, ICD10: E29.1 Continue testosterone IM supplement as prescribed. - TESTOSTERONE CYPIONATE 200 MG/ML INTRAMUSCULAR OIL 2. Type 2 diabetes mellitus with other diabetic kidney complication (HCC) - ICD9: 250.40, ICD10: E11.29 improved control - Increase glimepiride (Amaryl) - Blood glucose monitoring on a twice a day schedule - Encouraged regular aerobic exercise and weight loss - Daily Asprin therapy recommended - Follow up in 2 months, sooner should any other issues arise. - Discussed diabetic education issues of snf diabetic complications, hypoglycemic symptoms, hyperglycemic symptoms, diet, medications- side effects and need for compliance, importance of exercise and importance of annual examinations with Opthalmology with patient. - GLIMEPIRIDE 4 MG TABLET Leanna Rangel MD documented in this encounter [facility] 01-01-2022 History of Present illness Narrative Patient presents for Testosterone injection. Denies any problems at this time. Brought own medication. Patient instructed on any SE of medication, verbalized understanding and agreed to proceed with treatment. Tolerated injection well. Maricruz Ozuna LPN documented in this encounter [facility] 12-29-2021 Miscellaneous Notes Order for injection filed. Nayeli Zaragoza APRN.CNP Patient scheduled for nurse visit 01/01/22 to receive Testosterone injection. Please place new administration order at this time. Maricruz Ozuna LPN documented in this encounter [facility] 12-18-2021 History of Present illness Narrative Patient presents for Testosterone injection. Denies any problems at this time. Brought own medication. Patient instructed on any SE of medication, verbalized understanding and agreed to proceed with treatment. Tolerated injection well. Maricruz Ozuna LPN documented in this encounter [facility] 12-17-2021 Miscellaneous Notes Thank you again for your help. Sw called patient and discussed Jardiance Savings Card program ph.[phone]. Patient stated that he thought Sw had assistance from her office for the cost of Jardiance. Sw noted that she does not have fund for cost of medications, patients have to check with pharmaceutical [employer] for savings cost assistance. Patient upset that cost of medications are so high and Sw encouraged patient to reach out to the number above to see what copay savings he could be eligible to receive. Patient stated I will call and call disconnected. Sw sent patient [employer] message to connect concerning medication cost needs. Charli called to discuss prescription cost issues with patient Jardiance. No answer and no vmail to leave message. Charli will try call again later. documented in this encounter [facility] 12-11-2021 Miscellaneous Notes Pt called and is notified of providers message and instructions. Pt voices understanding. Pt will wait to hear from SW. Tiny Kelly RN Will place referral to social work to assist with medication cost. Restart metformin and increase Glimepiride to 4 mg daily as discussed while awaiting approval for Jardiance. Patient calls and wanted provider to know that he went to crop picker Jardiance and it was too expensive. Medication would cost patient $100+ with insurance. Please review and advise, Selena Posada RN documented in this encounter [facility] 12-11-2021 History of Present illness Narrative Chief Complaint Patient presents with: Follow Up: DM and kidney function HPI Trevor Byers is a 50 year old male who presents here today for follow up on uncontrolled DM. DIABETES MELLITUS: Mr. Byers was last seen 3 months ago. Since our last visit he denies new or unusual visual symptoms and low sugar/hypoglycemic reactions. Admits to polyuria, polyphagia, polydipsia, numbness in right hand when he wakes up. Follows a diabetic diet generally not very much. Patient states that he did not restart his Metformin after his BETHANY and GFR <45. Has been taking his glimepiride. He reports checking his glucose on a infrequent to not at all basis schedule with sugars in the fasting 280-320 range in the last couple weeks. Up to 380 and 480 after meals. Patient's last HgA1C was Hemoglobin A1C (%) Date Value 12/09/2021 11.5 09/05/2021 8.1 06/05/2021 6.8 02/27/2021 7.0 ) Last Ophthalmology exam was within the past 12 months Last Podiatry exam was within the past 12 months Reviewed recent labs which showed BETHANY. States that he has been off of his Naproxen for patella tendinitis for the last week. Did not understand to avoid NSAIDs when we called back in September. Past medical history, appointments, medications, allergies reviewed. Previous Medical History PAST MEDICAL HISTORY Diagnosis Date Abnormal ECG during exercise stress test 2016 BPH (benign prostatic hyperplasia) Diabetes mellitus type II (HCC) Diverticulosis Gynecomastia Hyperaldosteronism (HCC) Hyperlipidemia Hypertension Hypogonadism in male JERAMY (obstructive sleep apnea) has CPAP but has not been using it Overweight Palpitations Previous Surgical History PAST SURGICAL HISTORY Procedure Laterality Date COLONOSCOPY FLX DX W/COLLJ SPEC WHEN PFRMD 08/30/2014 Colonoscopy repeat in 10 years Family History FAMILY HISTORY Problem Relation Age of Onset Diabetes Mother Hypertension Mother Coronary Artery Disease Other none Diabetes Brother Twin Hypertension Brother Patient Allergies ALLERGIES Allergen Reactions Seasonal Allergies Other: See Comments Patient states he gets stuffed up Current Medications Current Outpatient Medications on File Prior to Visit Medication Sig testosterone cypionate (DEPO-TESTOSTERONE) 200 mg/mL injection Inject 1 mL intramuscularly every 2 weeks for 168 days. glimepiride (AMARYL) 2 mg tablet Take 1 tablet by mouth daily with breakfast. chlorthalidone (HYGROTON) 50 mg tablet Take 1 tablet by mouth once daily. amLODIPine (NORVASC) 10 mg tablet Take 1 tablet by mouth once daily. lisinopril (ZESTRIL, PRINIVIL) 40 mg tablet Take 1 tablet by mouth once daily. metFORMIN (GLUCOPHAGE) 500 mg tablet TAKE 2 TABLETS BY MOUTH TWICE A DAY WITH MEALS pravastatin (PRAVACHOL) 20 mg tablet Take 1 tablet by mouth daily at bedtime. potassium chloride ER (KLOR-CON M20) 20 mEq tablet Take 2 tablets by mouth twice daily. naproxen (NAPROSYN) 500 mg tablet Take 1 tablet by mouth twice daily as needed for pain (for pain/inflammation). Take with food. CPAP Pt machine on recall list. Please change PAP setting to 4-11 cmH2O. Set ramp to start at 4 and ramp duration of 30 minutes. Also pleas fit with Dream Wisp nasal mask. nitroglycerin sublingual (NITROSTAT) 0.4 mg SL tablet Dissolve 1 tablet under the tongue as needed. FOR CHEST PAIN. IF NO RELIEF CALL 911 syringe with needle, safety 3 mL 23 gauge x 1 1/2 syrg 1 Each every 2 weeks. (Patient not taking: Reported on 01/03/2021 ) blood sugar diagnostic ([employer] VERIO) test strip Test blood sugar(s) 1 times daily. Dx: Type 2 DM - Controlled E11.9 Insulin: No (Patient taking differently: as needed. Test blood sugar(s) 1 times daily. Dx: Type 2 DM - Controlled E11.9 Insulin: No ) lancets (ONE TOUCH DELICA) 33 gauge misc Test blood sugar(s) once daily. Dx: Type 2 DM - Controlled E11.9 Insulin: No Current Facility-Administered Medications on File Prior to Visit Medication testosterone cypionate 200 mg injection (DEPO-TESTOSTERONE) Social History Social History Tobacco Use Smoking status: Never Smoker Smokeless tobacco: Never Used Tobacco comment: tried once Substance Use Topics Alcohol use: Yes Alcohol/week: 2.0 standard drinks Types: 2 Cans of Beer (12oz) per week Comment: occasional use Drug use: No Review of Symptoms REVIEW OF SYSTEMS See HPI EXAM: BP (P) 126/80 Pulse (P) 74 Resp (P) 16 Wt (P) 89.3 kg (196 lb 12.8 oz) SpO2 (P) 96% BMI (P) 29.65 kg/m General Appearance: Well appearing, alert, in no acute distress, well-hydrated, well nourished.. Skin: Skin color, texture, turgor normal, no suspicious rashes or lesions. Lungs: Lungs clear to auscultation. No wheezing, rhonchi, rales.. Heart: RRR without murmur, gallop, or rubs. No ectopy. Abdomen: Normal abdominal exam, Abdomen soft, non-tender. Bowel sounds normal. No masses, organomegaly. Extremities: No deformities, edema, skin discoloration, clubbing or cyanosis. Good capillary refill. . Health Maintenance List HEPATITIS B(1 of 3 - Risk 3-dose series) Never done PNEUMOCOCCAL(2 - PCV) due on 03/17/2013 BP CONTROLLED (<130/80) due on 02/24/2019 DEPRESSION SCREENING due on 11/28/2021 DILATED RETINAL EXAM due on 01/02/2022 DIABETIC FOOT EXAM due on 02/27/2022 HBA1C due on 03/11/2022 DTAP,TDAP,TD(2 - Td or Tdap) due on 03/17/2022 URINE ALBUMIN:CREATININE RATIO due on 06/05/2022 ANNUAL PCP TEAM CHRONIC DISEASE VISIT due on 09/05/2022 LDL CHOLESTEROL due on 12/09/2022 COLORECTAL CANCER SCREENING due on 08/30/2024 INFLUENZA Completed HEPATITIS C SCREENING Completed HIV SCREENING Completed SHINGRIX VACCINE Completed COVID-19 VACCINE Completed Data reviewed Component Latest Ref Rng & Units 09/05/2021 09/25/2021 12/09/2021 Protein, Total 6.3 - 8.0 g/dL 7.6 7.7 8.0 Albumin 3.9 - 4.9 g/dL 4.8 4.9 5.0 (H) Calcium 8.5 - 10.2 mg/dL 10.6 (H) 10.3 (H) 10.2 Bilirubin, Total 0.2 - 1.3 mg/dL 0.5 0.4 1.0 Alkaline Phosphatase 38 - 113 U/L 67 70 76 AST 14 - 40 U/L 14 21 19 ALT 10 - 54 U/L 23 26 20 Glucose 74 - 99 mg/dL 218 (H) 190 (H) 295 (H) BUN 9 - 24 mg/dL 21 21 26 (H) Creatinine 0.73 - 1.22 mg/dL 1.88 (H) 1.31 (H) 1.44 (H) Sodium 136 - 144 mmol/L 139 138 135 (L) Potassium 3.7 - 5.1 mmol/L 3.8 3.5 (L) 3.5 (L) Chloride 97 - 105 mmol/L 99 99 95 (L) CO2 22 - 30 mmol/L 26 25 28 Anion Gap 9 - 18 mmol/L 14 14 12 eGFR >=60 mL/min/1.73m 43 (L) 66 59 (L) WBC 3.70 - 11.00 k/uL 5.29 RBC 4.20 - 6.00 m/uL 5.58 Hemoglobin 13.0 - 17.0 g/dL 15.7 Hematocrit 39.0 - 51.0 % 47.8 MCV 80.0 - 100.0 fL 85.7 MCH 26.0 - 34.0 pg 28.1 MCHC 30.5 - 36.0 g/dL 32.8 RDW-CV 11.5 - 15.0 % 12.8 Platelet Count 150 - 400 k/uL 231 MPV 9.0 - 12.7 fL 10.4 Absolute nRBC <0.01 k/uL <0.01 Total Cholesterol, Nonfasting <200 mg/dL 216 (H) Triglycerides, Nonfasting <150 mg/dL 325 (H) HDL Cholesterol, Nonfasting >39 mg/dL 41 LDL Cholesterol, Nonfasting <100 mg/dL 110 (H) Non HDL Cholesterol, Nonfasting <130 mg/dL 175 (H) VLDL Cholesterol, Nonfasting <30 mg/dL 65 (H) Total Chol/HDL Ratio, Nonfasting <5.10 mg/dL 5.27 (H) LDL/HDL Ratio, Nonfasting <2.54 mg/dL 2.68 (H) Hemoglobin A1C 4.3 - 5.6 % 8.1 (H) 11.5 (H) Estimated Average Glucose mg/dL 186 283 Testosterone Free 4.06 - 15.6 ng/dL 18.4 (H) Testosterone 240 - 950 ng/dL 391 ASSESSMENT/PLAN: 1. Type 2 diabetes mellitus with other diabetic kidney complication (HCC) - ICD9: 250.40, ICD10: E11.29 Discussed insulin with patient with A1C >10, but he is refusing. Opting to try oral medications and will buckle down on his diet. Will have him resume metformin with GFR >45, increase glimepiride to 4 mg daily, and and add on SGLT2 for DM control and renal protection. Check sugars BID and will f/u in 1 month. Offered structured program which he is refusing. Leanna Rangel MD documented in this encounter [facility] 12-09-2021 Miscellaneous Notes TC to patient who verbalizes understanding of providers instructions and will bring list of sugars to his appointment. DIANNA Moon Attempted to contact patient and received a recording saying patient doesn't have a mailbox set up. Need to attempt to contact again at a later time. Reviewed. Continue low carb diet, check sugars BID and bring them with him to appointment. Call with change in symptoms. No nausea, vomiting, or abdominal pain. Patient says he got a little lost with everything that was going on and didn't understand why his mychart was saying he wasn't due back until March. Patient will do labs tomorrow and scheduled an appointment for . Will take blood sugars twice daily until appointment. Aubrie Dudley LPN Has he had any symptoms with his increased blood sugar especially nausea, vomiting or abdominal pain? Patient has labs ordered he should complete. Yes he should not be taking naproxen at this time. Would recommend he take his sugars routinely twice a day- one fasting and the second before a meal or 1-2 hours after a meal. Due for follow-up appointment, please assist in scheduling. Nayeli Zaragoza APRN.KAZ Patient calling to say he is concerned about his blood sugars since stopping Metformin several months ago. He does not check blood sugars routinely. He checked it yesterday at bedtime and it was 380. In review of record, he was supposed to call with blood sugar readings in September. He says he was not aware of this. Advised patient to refer to My Chart message sent to him on 09/12/21. Also, he has been taking prescribed Naproxen until a few days ago. He states he did not realize this was a NSAID. He says he was not instructed about this. He is asking for a recommendation going forward. Heriberto Lamb documented in this encounter [facility] 12-04-2021 History of Present illness Narrative Patient presents for Testosterone injection. Denies any problems at this time. Brought own medication. Patient instructed on any SE of medication, verbalized understanding and agreed to proceed with treatment. Tolerated injection well. Pt to also receive COVID booster. Maricruz Ozuna LPN documented in this encounter [facility] 11-20-2021 History of Present illness Narrative Patient presents for Testosterone injection. Denies any problems at this time. Brought own medication. Patient instructed on any SE of medication, verbalized understanding and agreed to proceed with treatment. Tolerated injection well. Maricruz Ozuna LPN documented in this encounter [facility] 10-23-2021 History of Present illness Narrative Patient here for ordered testosterone injection. Given with no adverse effects. documented in this encounter [facility] 10-09-2021 History of Present illness Narrative Patient presents for Testosterone injection. Denies any problems at this time. Brought own medication. Patient instructed on any SE of medication, verbalized understanding and agreed to proceed with treatment. Tolerated injection well. Maricruz Ozuna LPN documented in this encounter [facility] 09-12-2021 Miscellaneous Notes Patient notified of recommendations from PCP, verbalizes understanding of instructions. Luiza Malagon LPN Fasting would be when he wakes up before he eats anything. Would have him check before he goes to bed as well. Phone call placed spoke to patient advised (see prior provider encounter) Patient reported work schedule as follows 4:00 PM - 4:00 AM, inquired what times would be best to check blood sugars with current work schedule, four days per week. [employer] message with providers detailed instructions, plan of care sent, patient was sleeping when call was placed, advised after review to contact a nurse with questions, concerns that may arise. Patient verbalized understanding, agreed with plan of care, labs two weeks, watch diet, push fluids, hold Rx Metformin. Arlette Ragland LPN Patient's diabetes has been poorly controlled with A1C up to 8.1. Average glucose 186. Kidney function is down as well, possibly related to uncontrolled diabetes vs high sodium vs not enough fluids. I would recommend increasing his glimepiride to 2 mg daily and working on closer adherence to DM diet. Check sugars BID: fasting and before bed. Call with updated readings in 2 weeks or sooner with any low sugars. Recheck kidney function in 2 weeks. Avoid NSAIDs, push PO fluids, stick to low sodium diet <2,000 mg per day. With decreased kidney function, he will need to hold his metformin until we get repeat labs back in 2 weeks. Still awaiting testosterone results. documented in this encounter [facility] 05-22-2021 Miscellaneous Notes PDMP website checked and validated. All prescriptions have been APPROPRIATELY filled. No suspicious activity was identified. 05/22/2021 by Leanna Rangel MD rx approved as requested. Patient in need of refills before [place] He will also need the Testosterone okayed for early refill as he will run out while he is in [place]. Please review and advise. Pending Prescriptions Disp Refills TESTOSTERONE CYPIONATE 200 MG/ML INTRAMUSCULAR OIL 6 mL 1 Sig: Inject 1 mL intramuscularly every 2 weeks for 168 days. DELMA Class: C-III BRODERICK: No POTASSIUM CHLORIDE ER 20 MEQ TABLET,EXTENDED RELEASE(PART/CRYST) 360 tablet 1 Sig: Take 2 tablets by mouth twice daily. BRODERICK: No Maricruz Ozuna LPN documented in this encounter [facility] documented as of this encounter (statuses as of 10/09/2021) [facility] History of Past illness Narrative* Problem Noted Date Resolved Date Diabetes mellitus with renal manifestation 04/1208/05/2017 Diabetes type 2, controlled 05/07/200907/2017 Overview: A1c 9.7, summer 2008 Hematuria 02/08/2007 11/05/2012 documented as of this encounter (statuses as of 10/23/2021) [facility] History of Past illness Narrative* Problem Noted Date Resolved Date Diabetes mellitus with renal manifestation 04/1208/05/2017 Diabetes type 2, controlled 05/07/200907/2017 Overview: A1c 9.7, summer 2008 Hematuria 02/08/2007 11/05/2012 documented as of this encounter (statuses as of 11/20/2021) [facility] History of Past illness Narrative* Problem Noted Date Resolved Date Diabetes mellitus with renal manifestation 04/1208/05/2017 Diabetes type 2, controlled 05/07/200907/2017 Overview: A1c 9.7, summer 2008 Hematuria 02/08/2007 11/05/2012 documented as of this encounter (statuses as of 12/04/2021) [facility] History of Past illness Narrative* Problem Noted Date Resolved Date Diabetes mellitus with renal manifestation 04/1208/05/2017 Diabetes type 2, controlled 05/07/200907/2017 Overview: A1c 9.7, summer 2008 Hematuria 02/08/2007 11/05/2012 documented as of this encounter (statuses as of 12/09/2021) [facility] History of Past illness Narrative* Problem Noted Date Resolved Date Diabetes mellitus with renal manifestation 04/1208/05/2017 Diabetes type 2, controlled 05/07/200907/2017 Overview: A1c 9.7, summer 2008 Hematuria 02/08/2007 11/05/2012 documented as of this encounter (statuses as of 12/12/2021) [facility] History of Past illness Narrative* Problem Noted Date Resolved Date Diabetes mellitus with renal manifestation 04/1208/05/2017 Diabetes type 2, controlled 05/07/200907/2017 Overview: A1c 9.7, summer 2008 Hematuria 02/08/2007 11/05/2012 documented as of this encounter (statuses as of 12/17/2021) [facility] History of Past illness Narrative* Problem Noted Date Resolved Date Diabetes mellitus with renal manifestation 04/1208/05/2017 Diabetes type 2, controlled 05/07/200907/2017 Overview: A1c 9.7, summer 2008 Hematuria 02/08/2007 11/05/2012 documented as of this encounter (statuses as of 12/18/2021) [facility] History of Past illness Narrative* Problem Noted Date Resolved Date Diabetes mellitus with renal manifestation 04/1208/05/2017 Diabetes type 2, controlled 05/07/200907/2017 Overview: A1c 9.7, summer 2008 Hematuria 02/08/2007 11/05/2012 documented as of this encounter (statuses as of 12/29/2021) [facility] History of Past illness Narrative* Problem Noted Date Resolved Date Diabetes mellitus with renal manifestation 04/1208/05/2017 Diabetes type 2, controlled 05/07/200907/2017 Overview: A1c 9.7, summer 2008 Hematuria 02/08/2007 11/05/2012 documented as of this encounter (statuses as of 01/01/2022) [facility] History of Past illness Narrative* Problem Noted Date Resolved Date Diabetes mellitus with renal manifestation 04/1208/05/2017 Diabetes type 2, controlled 05/07/200907/2017 Overview: A1c 9.7, summer 2008 Hematuria 02/08/2007 11/05/2012 documented as of this encounter (statuses as of 01/08/2022) [facility] History of Past illness Narrative* Problem Noted Date Resolved Date Diabetes mellitus with renal manifestation 04/1208/05/2017 Diabetes type 2, controlled 05/07/200907/2017 Overview: A1c 9.7, summer 2008 Hematuria 02/08/2007 11/05/2012 documented as of this encounter (statuses as of 01/13/2022) [facility] History of Past illness Narrative* Problem Noted Date Resolved Date Diabetes mellitus with renal manifestation 04/1208/05/2017 Diabetes type 2, controlled 05/07/200907/2017 Overview: A1c 9.7, summer 2008 Hematuria 02/08/2007 11/05/2012 documented as of this encounter (statuses as of 01/14/2022) [facility] History of Past illness Narrative* Problem Noted Date Resolved Date Diabetes mellitus with renal manifestation 04/1208/05/2017 Diabetes type 2, controlled 05/07/200907/2017 Overview: A1c 9.7, summer 2008 Hematuria 02/08/2007 11/05/2012 documented as of this encounter (statuses as of 01/14/2022) [facility] History of Past illness Narrative* Problem Noted Date Resolved Date Diabetes mellitus with renal manifestation 04/1208/05/2017 Diabetes type 2, controlled 05/07/200907/2017 Overview: A1c 9.7, summer 2008 Hematuria 02/08/2007 11/05/2012 documented as of this encounter (statuses as of 01/21/2022) [facility] History of Past illness Narrative* Problem Noted Date Resolved Date Diabetes mellitus with renal manifestation 04/1208/05/2017 Diabetes type 2, controlled 05/07/200907/2017 Overview: A1c 9.7, summer 2008 Hematuria 02/08/2007 11/05/2012 documented as of this encounter (statuses as of 01/29/2022) [facility] History of Past illness Narrative* Problem Noted Date Resolved Date Diabetes mellitus with renal manifestation 04/1208/05/2017 Diabetes type 2, controlled 05/07/200907/2017 Overview: A1c 9.7, summer 2008 Hematuria 02/08/2007 11/05/2012 documented as of this encounter (statuses as of 01/30/2022) [facility] History of Past illness Narrative* Problem Noted Date Resolved Date Diabetes mellitus with renal manifestation 04/1208/05/2017 Diabetes type 2, controlled 05/07/200907/2017 Overview: A1c 9.7, summer 2008 Hematuria 02/08/2007 11/05/2012 documented as of this encounter (statuses as of 02/12/2022) [facility] History of Past illness Narrative* Problem Noted Date Resolved Date Diabetes mellitus with renal manifestation 04/1208/05/2017 Diabetes type 2, controlled 05/07/200907/2017 Overview: A1c 9.7, summer 2008 Hematuria 02/08/2007 11/05/2012 documented as of this encounter (statuses as of 02/26/2022) [facility] History of Past illness Narrative* Problem Noted Date Resolved Date Diabetes mellitus with renal manifestation 04/1208/05/2017 Diabetes type 2, controlled 05/07/200907/2017 Overview: A1c 9.7, summer 2008 Hematuria 02/08/2007 11/05/2012 documented as of this encounter (statuses as of 03/01/2022) [facility] History of Past illness Narrative* Problem Noted Date Resolved Date Diabetes mellitus with renal manifestation 04/1208/05/2017 Diabetes type 2, controlled 05/07/200907/2017 Overview: A1c 9.7, summer 2008 Hematuria 02/08/2007 11/05/2012 documented as of this encounter (statuses as of 03/12/2022) [facility] History of Past illness Narrative* Problem Noted Date Resolved Date Diabetes mellitus with renal manifestation 04/1208/05/2017 Diabetes type 2, controlled 05/07/200907/2017 Overview: A1c 9.7, summer 2008 Hematuria 02/08/2007 11/05/2012 documented as of this encounter (statuses as of 03/13/2022) [facility] History of Past illness Narrative* Problem Noted Date Resolved Date Diabetes mellitus with renal manifestation 04/1208/05/2017 Diabetes type 2, controlled 05/07/200907/2017 Overview: A1c 9.7, summer 2008 Hematuria 02/08/2007 11/05/2012 documented as of this encounter (statuses as of 03/16/2022) [facility] History of Past illness Narrative* Problem Noted Date Resolved Date Diabetes mellitus with renal manifestation 04/1208/05/2017 Diabetes type 2, controlled 05/07/200907/2017 Overview: A1c 9.7, summer 2008 Hematuria 02/08/2007 11/05/2012 documented as of this encounter (statuses as of 03/26/2022) [facility] History of Past illness Narrative* Problem Noted Date Resolved Date Diabetes mellitus with renal manifestation 04/1208/05/2017 Diabetes type 2, controlled 05/07/200907/2017 Overview: A1c 9.7, summer 2008 Hematuria 02/08/2007 11/05/2012 documented as of this encounter (statuses as of 04/09/2022) [facility] History of Past illness Narrative* Problem Noted Date Resolved Date Diabetes mellitus with renal manifestation 04/1208/05/2017 Diabetes type 2, controlled 05/07/200907/2017 Overview: A1c 9.7, summer 2008 Hematuria 02/08/2007 11/05/2012 documented as of this encounter (statuses as of 04/15/2022) [facility] History of Past illness Narrative* Problem Noted Date Resolved Date Diabetes mellitus with renal manifestation 04/1208/05/2017 Diabetes type 2, controlled 05/07/200907/2017 Overview: A1c 9.7, summer 2008 Hematuria 02/08/2007 11/05/2012 documented as of this encounter (statuses as of 04/23/2022) [facility] History of Past illness Narrative* Problem Noted Date Resolved Date Diabetes mellitus with renal manifestation 04/1208/05/2017 Diabetes type 2, controlled 05/07/200907/2017 Overview: A1c 9.7, summer 2008 Hematuria 02/08/2007 11/05/2012 documented as of this encounter (statuses as of 06/12/2022) [facility] History of Past illness Narrative* Problem Noted Date Resolved Date Diabetes mellitus with renal manifestation 04/1208/05/2017 Diabetes type 2, controlled 05/07/200907/2017 Overview: A1c 9.7, summer 2008 Hematuria 02/08/2007 11/05/2012 documented as of this encounter (statuses as of 06/16/2022) [facility] History of Past illness Narrative* Problem Noted Date Resolved Date Diabetes mellitus with renal manifestation 04/1208/05/2017 Diabetes type 2, controlled 05/07/200907/2017 Overview: A1c 9.7, summer 2008 Hematuria 02/08/2007 11/05/2012 documented as of this encounter (statuses as of 06/18/2022) [facility] History of Past illness Narrative* Problem Noted Date Resolved Date Diabetes mellitus with renal manifestation 04/1208/05/2017 Diabetes type 2, controlled 05/07/200907/2017 Overview: A1c 9.7, summer 2008 Hematuria 02/08/2007 11/05/2012 documented as of this encounter (statuses as of 07/13/2022) [facility] History of Past illness Narrative* Problem Noted Date Resolved Date Diabetes mellitus with renal manifestation 04/1208/05/2017 Diabetes type 2, controlled 05/07/200907/2017 Overview: A1c 9.7, summer 2008 Hematuria 02/08/2007 11/05/2012 documented as of this encounter (statuses as of 07/14/2022) [facility] History of Past illness Narrative* Problem Noted Date Resolved Date Diabetes mellitus with renal manifestation 04/1208/05/2017 Diabetes type 2, controlled 05/07/200907/2017 Overview: A1c 9.7, summer 2008 Hematuria 02/08/2007 11/05/2012 documented as of this encounter (statuses as of 07/16/2022) [facility] History of Past illness Narrative* Problem Noted Date Resolved Date Diabetes mellitus with renal manifestation 04/1208/05/2017 Diabetes type 2, controlled 05/07/200907/2017 Overview: A1c 9.7, summer 2008 Hematuria 02/08/2007 11/05/2012 documented as of this encounter (statuses as of 07/20/2022) [facility] History of Past illness Narrative* Problem Noted Date Resolved Date Diabetes mellitus with renal manifestation 04/1208/05/2017 Diabetes type 2, controlled 05/07/200907/2017 Overview: A1c 9.7, summer 2008 Hematuria 02/08/2007 11/05/2012 documented as of this encounter (statuses as of 07/29/2022) [facility] History of Past illness Narrative* Problem Noted Date Resolved Date Diabetes mellitus with renal manifestation 04/1208/05/2017 Diabetes type 2, controlled 05/07/200907/2017 Overview: A1c 9.7, summer 2008 Hematuria 02/08/2007 11/05/2012 documented as of this encounter (statuses as of 07/30/2022) [facility] History of Past illness Narrative* Problem Noted Date Resolved Date Diabetes mellitus with renal manifestation 04/1208/05/2017 Diabetes type 2, controlled 05/07/200907/2017 Overview: A1c 9.7, summer 2008 Hematuria 02/08/2007 11/05/2012 documented as of this encounter (statuses as of 08/10/2022) [facility] History of Past illness Narrative* Problem Noted Date Resolved Date Diabetes mellitus with renal manifestation 04/1208/05/2017 Diabetes type 2, controlled 05/07/200907/2017 Overview: A1c 9.7, summer 2008 Hematuria 02/08/2007 11/05/2012 documented as of this encounter (statuses as of 08/13/2022) [facility] History of Past illness Narrative* Problem Noted Date Resolved Date Diabetes mellitus with renal manifestation 04/1208/05/2017 Diabetes type 2, controlled 05/07/200907/2017 Overview: A1c 9.7, summer 2008 Hematuria 02/08/2007 11/05/2012 documented as of this encounter (statuses as of 09/11/2022) [facility] History of Past illness Narrative* Problem Noted Date Resolved Date Diabetes mellitus with renal manifestation 04/1208/05/2017 Diabetes type 2, controlled 05/07/200907/2017 Overview: A1c 9.7, summer 2008 Hematuria 02/08/2007 11/05/2012 documented as of this encounter (statuses as of 09/11/2022) [facility] History of Past illness Narrative* Problem Noted Date Resolved Date Diabetes mellitus with renal manifestation 04/1208/05/2017 Diabetes type 2, controlled 05/07/200907/2017 Overview: A1c 9.7, summer 2008 Hematuria 02/08/2007 11/05/2012 documented as of this encounter (statuses as of 09/26/2022) [facility] History of Past illness Narrative* Problem Noted Date Resolved Date Diabetes mellitus with renal manifestation 04/1208/05/2017 Diabetes type 2, controlled 05/07/200907/2017 Overview: A1c 9.7, summer 2008 Hematuria 02/08/2007 11/05/2012 documented as of this encounter (statuses as of 10/08/2022) [facility] History of Past illness Narrative* Problem Noted Date Resolved Date Diabetes mellitus with renal manifestation 04/1208/05/2017 Diabetes type 2, controlled 05/07/200907/2017 Overview: A1c 9.7, summer 2008 Hematuria 02/08/2007 11/05/2012 documented as of this encounter (statuses as of 10/23/2022) [facility] History of Past illness Narrative* Problem Noted Date Resolved Date Diabetes mellitus with renal manifestation 04/1208/05/2017 Diabetes type 2, controlled 05/07/200907/2017 Overview: A1c 9.7, summer 2008 Hematuria 02/08/2007 11/05/2012 documented as of this encounter (statuses as of 10/23/2022) [facility] History of Past illness Narrative* Problem Noted Date Resolved Date Diabetes mellitus with renal manifestation 04/1208/05/2017 Diabetes type 2, controlled 05/07/200907/2017 Overview: A1c 9.7, summer 2008 Hematuria 02/08/2007 11/05/2012 documented as of this encounter (statuses as of 10/27/2022) [facility] History of Past illness Narrative* Problem Noted Date Resolved Date Diabetes mellitus with renal manifestation 04/1208/05/2017 Diabetes type 2, controlled 05/07/200907/2017 Overview: A1c 9.7, summer 2008 Hematuria 02/08/2007 11/05/2012 documented as of this encounter (statuses as of 11/18/2022) [facility] History of Past illness Narrative* Problem Noted Date Resolved Date Diabetes mellitus with renal manifestation 04/1208/05/2017 Diabetes type 2, controlled 05/07/200907/2017 Overview: A1c 9.7, summer 2008 Hematuria 02/08/2007 11/05/2012 documented as of this encounter (statuses as of 12/03/2022) [facility] History of Past illness Narrative* Problem Noted Date Resolved Date Diabetes mellitus with renal manifestation 04/1208/05/2017 Diabetes type 2, controlled 05/07/200907/2017 Overview: A1c 9.7, summer 2008 Hematuria 02/08/2007 11/05/2012 documented as of this encounter (statuses as of 12/04/2022) [facility] History of Past illness Narrative* Problem Noted Date Resolved Date Diabetes mellitus with renal manifestation 04/1208/05/2017 Diabetes type 2, controlled 05/07/200907/2017 Overview: A1c 9.7, summer 2008 Hematuria 02/08/2007 11/05/2012 documented as of this encounter (statuses as of 12/23/2022) [facility] History of Past illness Narrative* Problem Noted Date Resolved Date Diabetes mellitus with renal manifestation 04/1208/05/2017 Diabetes type 2, controlled 05/07/200907/2017 Overview: A1c 9.7, summer 2008 Hematuria 02/08/2007 11/05/2012 documented as of this encounter (statuses as of 2022) [facility] History of Past illness Narrative* Problem Noted Date Resolved Date Diabetes mellitus with renal manifestation 04/1208/05/2017 Diabetes type 2, controlled 05/07/200907/2017 Overview: A1c 9.7, summer 2008 Hematuria 02/08/2007 11/05/2012 documented as of this encounter (statuses as of 2022) [facility] History of Past illness Narrative* Problem Noted Date Resolved Date Diabetes mellitus with renal manifestation 04/1208/05/2017 Diabetes type 2, controlled 05/07/200907/2017 Overview: A1c 9.7, summer 2008 Hematuria 02/08/2007 11/05/2012 documented as of this encounter (statuses as of 01/01/2023) [facility] History of Past illness Narrative* Problem Noted Date Resolved Date Diabetes mellitus with renal manifestation 04/1208/05/2017 Diabetes type 2, controlled 05/07/200907/2017 Overview: A1c 9.7, summer 2008 Hematuria 02/08/2007 11/05/2012 documented as of this encounter (statuses as of 01/01/2023) [facility] History of Past illness Narrative* Problem Noted Date Resolved Date Diabetes mellitus with renal manifestation 04/1208/05/2017 Diabetes type 2, controlled 05/07/200907/2017 Overview: A1c 9.7, summer 2008 Hematuria 02/08/2007 11/05/2012 documented as of this encounter (statuses as of 01/08/2023) [facility] History of Past illness Narrative* Problem Noted Date Resolved Date Diabetes mellitus with renal manifestation 04/1208/05/2017 Diabetes type 2, controlled 05/07/200907/2017 Overview: A1c 9.7, summer 2008 Hematuria 02/08/2007 11/05/2012 documented as of this encounter (statuses as of 01/08/2023) [facility] History of Past illness Narrative* Problem Noted Date Diagnosed Date Resolved Date Diabetes mellitus with renal manifestation 04/12/2014 08/05/2017 Diabetes type 2, controlled 05/07/2009 08/05/2017 Overview: A1c 9.7, summer 2008 Hematuria 02/08/2007 11/05/2012 documented as of this encounter (statuses as of 01/15/2023) [facility] History of Past illness Narrative* Problem Noted Date Diagnosed Date Resolved Date Diabetes mellitus with renal manifestation 04/12/2014 08/05/2017 Diabetes type 2, controlled 05/07/2009 08/05/2017 Overview: A1c 9.7, summer 2008 Hematuria 02/08/2007 11/05/2012 documented as of this encounter (statuses as of 01/20/2023) [facility] History of Past illness Narrative* Problem Noted Date Diagnosed Date Resolved Date Diabetes mellitus with renal manifestation 04/12/2014 08/05/2017 Diabetes type 2, controlled 05/07/2009 08/05/2017 Overview: A1c 9.7, summer 2008 Hematuria 02/08/2007 11/05/2012 documented as of this encounter (statuses as of 01/24/2023) [facility] History of Past illness Narrative* Problem Noted Date Diagnosed Date Resolved Date Diabetes mellitus with renal manifestation 04/12/2014 08/05/2017 Diabetes type 2, controlled 05/07/2009 08/05/2017 Overview: A1c 9.7, summer 2008 Hematuria 02/08/2007 11/05/2012 documented as of this encounter (statuses as of 02/11/2023) [facility] History of Past illness Narrative* Problem Noted Date Diagnosed Date Resolved Date Diabetes mellitus with renal manifestation 04/12/2014 08/05/2017 Diabetes type 2, controlled 05/07/2009 08/05/2017 Overview: A1c 9.7, summer 2008 Hematuria 02/08/2007 11/05/2012 documented as of this encounter (statuses as of 02/11/2023) [facility] History of Past illness Narrative* Problem Noted Date Diagnosed Date Resolved Date Diabetes mellitus with renal manifestation 04/12/2014 08/05/2017 Diabetes type 2, controlled 05/07/2009 08/05/2017 Overview: A1c 9.7, summer 2008 Hematuria 02/08/2007 11/05/2012 documented as of this encounter (statuses as of 02/16/2023) [facility] History of Past illness Narrative* Problem Noted Date Diagnosed Date Resolved Date Diabetes mellitus with renal manifestation 04/12/2014 08/05/2017 Diabetes type 2, controlled 05/07/2009 08/05/2017 Overview: A1c 9.7, summer 2008 Hematuria 02/08/2007 11/05/2012 documented as of this encounter (statuses as of 02/16/2023) [facility] History of Past illness Narrative* Problem Noted Date Diagnosed Date Resolved Date Diabetes mellitus with renal manifestation 04/12/2014 08/05/2017 Diabetes type 2, controlled 05/07/2009 08/05/2017 Overview: A1c 9.7, summer 2008 Hematuria 02/08/2007 11/05/2012 documented as of this encounter (statuses as of 03/03/2023) [facility] History of Past illness Narrative* Problem Noted Date Diagnosed Date Resolved Date Diabetes mellitus with renal manifestation 04/12/2014 08/05/2017 Diabetes type 2, controlled 05/07/2009 08/05/2017 Overview: A1c 9.7, summer 2008 Hematuria 02/08/2007 11/05/2012 documented as of this encounter (statuses as of 03/05/2023) [facility] History of Past illness Narrative* Problem Noted Date Diagnosed Date Resolved Date Diabetes mellitus with renal manifestation 04/12/2014 08/05/2017 Diabetes type 2, controlled 05/07/2009 08/05/2017 Overview: A1c 9.7, summer 2008 Hematuria 02/08/2007 11/05/2012 documented as of this encounter (statuses as of 03/11/2023) [facility] History of Past illness Narrative* Problem Noted Date Diagnosed Date Resolved Date Diabetes mellitus with renal manifestation 04/12/2014 08/05/2017 Diabetes type 2, controlled 05/07/2009 08/05/2017 Overview: A1c 9.7, summer 2008 Hematuria 02/08/2007 11/05/2012 documented as of this encounter (statuses as of 03/24/2023) [facility] History of Past illness Narrative* Problem Noted Date Diagnosed Date Resolved Date Diabetes mellitus with renal manifestation 04/12/2014 08/05/2017 Diabetes type 2, controlled 05/07/2009 08/05/2017 Overview: A1c 9.7, summer 2008 Hematuria 02/08/2007 11/05/2012 documented as of this encounter (statuses as of 04/12/2023) [facility] History of Past illness Narrative* Problem Noted Date Diagnosed Date Resolved Date Diabetes mellitus with renal manifestation 04/12/2014 08/05/2017 Diabetes type 2, controlled 05/07/2009 08/05/2017 Overview: A1c 9.7, summer 2008 Hematuria 02/08/2007 11/05/2012 documented as of this encounter (statuses as of 04/14/2023) [facility] History of Past illness Narrative* Problem Noted Date Diagnosed Date Resolved Date Diabetes mellitus with renal manifestation 04/12/2014 08/05/2017 Diabetes type 2, controlled 05/07/2009 08/05/2017 Overview: A1c 9.7, summer 2008 Hematuria 02/08/2007 11/05/2012 documented as of this encounter (statuses as of 04/16/2023) [facility] History of Past illness Narrative* Problem Noted Date Diagnosed Date Resolved Date Diabetes mellitus with renal manifestation 04/12/2014 08/05/2017 Diabetes type 2, controlled 05/07/2009 08/05/2017 Overview: A1c 9.7, summer 2008 Hematuria 02/08/2007 11/05/2012 documented as of this encounter (statuses as of 04/20/2023) [facility] History of Past illness Narrative* Problem Noted Date Diagnosed Date Resolved Date Diabetes mellitus with renal manifestation 04/12/2014 08/05/2017 Diabetes type 2, controlled 05/07/2009 08/05/2017 Overview: A1c 9.7, summer 2008 Hematuria 02/08/2007 11/05/2012 documented as of this encounter (statuses as of 04/22/2023) [facility] History of Past illness Narrative* Problem Noted Date Diagnosed Date Resolved Date Diabetes mellitus with renal manifestation 04/12/2014 08/05/2017 Diabetes type 2, controlled 05/07/2009 08/05/2017 Overview: A1c 9.7, summer 2008 Hematuria 02/08/2007 11/05/2012 documented as of this encounter (statuses as of 05/04/2023) [facility] History of Past illness Narrative* Problem Noted Date Diagnosed Date Resolved Date Diabetes mellitus with renal manifestation 04/12/2014 08/05/2017 Diabetes type 2, controlled 05/07/2009 08/05/2017 Overview: A1c 9.7, summer 2008 Hematuria 02/08/2007 11/05/2012 documented as of this encounter (statuses as of 05/05/2023) [facility] History of Past illness Narrative* Problem Noted Date Diagnosed Date Resolved Date Diabetes mellitus with renal manifestation 04/12/2014 08/05/2017 Diabetes type 2, controlled 05/07/2009 08/05/2017 Overview: A1c 9.7, summer 2008 Hematuria 02/08/2007 11/05/2012 documented as of this encounter (statuses as of 05/25/2023) [facility] History of Past illness Narrative* Problem Noted Date Diagnosed Date Resolved Date Diabetes mellitus with renal manifestation 04/12/2014 08/05/2017 Diabetes type 2, controlled 05/07/2009 08/05/2017 Overview: A1c 9.7, summer 2008 Hematuria 02/08/2007 11/05/2012 documented as of this encounter (statuses as of 05/26/2023) [facility] History of Past illness Narrative* Problem Noted Date Diagnosed Date Resolved Date Diabetes mellitus with renal manifestation 04/12/2014 08/05/2017 Diabetes type 2, controlled 05/07/2009 08/05/2017 Overview: A1c 9.7, summer 2008 Hematuria 02/08/2007 11/05/2012 documented as of this encounter (statuses as of 06/08/2023) [facility] History of Past illness Narrative* Problem Noted Date Diagnosed Date Resolved Date Diabetes mellitus with renal manifestation 04/12/2014 08/05/2017 Diabetes type 2, controlled 05/07/2009 08/05/2017 Overview: A1c 9.7, summer 2008 Hematuria 02/08/2007 11/05/2012 documented as of this encounter (statuses as of 06/19/2023) [facility] History of Past illness Narrative* Problem Noted Date Diagnosed Date Resolved Date Diabetes mellitus with renal manifestation 04/12/2014 08/05/2017 Diabetes type 2, controlled 05/07/2009 08/05/2017 Overview: A1c 9.7, summer 2008 Hematuria 02/08/2007 11/05/2012 documented as of this encounter (statuses as of 06/20/2023) [facility] Diagnosis Hypogonadism in male- Primary [facility] Diagnosis Hypogonadism in male- Primary [facility] Diagnosis Hypogonadism in male- Primary [facility] Diagnosis Hypogonadism in male- Primary Need for vaccination Need for prophylactic vaccination and inoculation against unspecified single disease [facility] Diagnosis Type 2 diabetes mellitus with other diabetic kidney complication (HCC)- Primary [facility] Diagnosis Hypogonadism in male- Primary [facility] Diagnosis Hypogonadism in male- Primary [facility] Diagnosis Hypogonadism in male- Primary [facility] Diagnosis Hypogonadism in male Hypokalemia Hypopotassemia [facility] Diagnosis Hypogonadism in male Type 2 diabetes mellitus with other diabetic kidney complication (HCC) [facility] Diagnosis Type 2 diabetes mellitus with other diabetic kidney complication (HCC)- Primary [facility] Diagnosis BETHANY (acute kidney injury) (HCC)- Primary Acute kidney failure, unspecified Controlled type 2 diabetes mellitus without complication, without long-term current use of insulin (HCC) [facility] Diagnosis Hypogonadism in male- Primary [facility] Diagnosis Hypogonadism in male- Primary [facility] Diagnosis Hypogonadism in male- Primary [facility] Diagnosis Type 2 diabetes mellitus with other diabetic kidney complication (HCC)- Primary BETHANY (acute kidney injury) (HCC) Acute kidney failure, unspecified Essential hypertension Unspecified essential hypertension Microscopic hematuria Ingrown toenail Ingrowing nail [facility] Diagnosis Essential hypertension- Primary Unspecified essential hypertension Hypogonadism in male [facility] Diagnosis Hypogonadism in male- Primary Need for vaccination Need for prophylactic vaccination and inoculation against unspecified single disease [facility] Diagnosis Hypogonadism in male- Primary [facility] Diagnosis Annual physical exam- Primary Routine general medical examination at a [facility] care facility Type 2 diabetes mellitus with other diabetic kidney complication (HCC) Hypogonadism in male Essential hypertension Unspecified essential hypertension Mixed hyperlipidemia JERAMY (obstructive sleep apnea) Obstructive sleep apnea (adult) (pediatric) Nocturia Acute pain of left knee Need for vaccination Need for prophylactic vaccination and inoculation against unspecified single disease [facility] Diagnosis Need for vaccination- Primary Need for prophylactic vaccination and inoculation against unspecified single disease [facility] Diagnosis Hypogonadism in male- Primary Need for vaccination Need for prophylactic vaccination and inoculation against unspecified single disease [facility] Diagnosis Essential hypertension Unspecified essential hypertension [facility] Diagnosis Hypogonadism in male- Primary Need for vaccination Need for prophylactic vaccination and inoculation against unspecified single disease [facility] Diagnosis Hypogonadism in male [facility] Diagnosis Type 2 diabetes mellitus with other diabetic kidney complication (HCC)- Primary Essential hypertension Unspecified essential hypertension JERAMY (obstructive sleep apnea) Obstructive sleep apnea (adult) (pediatric) documented [facility] Diagnosis Essential hypertension Unspecified essential hypertension [facility] Diagnosis JERAMY (obstructive sleep apnea) Obstructive sleep apnea (adult) (pediatric) [facility] Diagnosis Essential hypertension Unspecified essential hypertension documented in this encounter [facility] note* Diagnosis Hypogonadism in male- Primary documented in this encounter [facility] note* Diagnosis Essential hypertension Unspecified essential hypertension documented in this encounter [facility] note* Diagnosis Hypogonadism in male- Primary Aldosteronism (HCC) Hyperaldosteronism, unspecified Uncontrolled hypertension Unspecified essential hypertension documented in this encounter [facility] note* Diagnosis Hyperaldosteronism (HCC)- Primary Hyperaldosteronism, unspecified Uncontrolled hypertension Unspecified essential hypertension Disorder of adrenal gland (HCC) Unspecified disorder of adrenal glands documented in this encounter [facility] note* Diagnosis Hypertension, unspecified type- Primary Obesity, Class I, BMI 30-34.9 Obesity, unspecified Dietary counseling Dietary surveillance and counseling documented in this encounter [facility] note* Diagnosis Uncontrolled hypertension- Primary Unspecified essential hypertension documented in this encounter [facility] note* Diagnosis Hypogonadism in male- Primary documented in this encounter [facility] note* Diagnosis Hypogonadism male- Primary Other testicular hypofunction documented in this encounter [facility] note* Diagnosis Type 2 diabetes mellitus with other diabetic kidney complication (HCC) documented in this encounter [facility] note* Diagnosis Hypogonadism male- Primary Other testicular hypofunction Hyperaldosteronism (HCC) Hyperaldosteronism, unspecified documented in this encounter [facility] note* Diagnosis Hypogonadism male- Primary Other testicular hypofunction Hyperaldosteronism (HCC) Hyperaldosteronism, unspecified documented in this encounter [facility] note* Diagnosis Hypogonadism male- Primary Other testicular hypofunction Need for vaccination Need for prophylactic vaccination and inoculation against unspecified single disease Hyperaldosteronism (HCC) Hyperaldosteronism, unspecified documented in this encounter [facility] note* Diagnosis Hyperaldosteronism (HCC)- Primary Hyperaldosteronism, unspecified Uncontrolled hypertension Unspecified essential hypertension documented in this encounter [facility] note* Diagnosis Controlled type 2 diabetes mellitus without complication, without long-term current use of insulin (HCC) documented in this encounter [facility] note* Diagnosis Primary hyperaldosteronism (HCC)- Primary Hyperaldosteronism, unspecified Hyperaldosteronism (HCC) Hyperaldosteronism, unspecified Uncontrolled hypertension Unspecified essential hypertension documented in this encounter [facility] note* Diagnosis Primary hyperaldosteronism (HCC)- Primary Hyperaldosteronism, unspecified Primary hyperaldosteronism (HCC) Hyperaldosteronism, unspecified documented in this encounter [facility] note* Diagnosis Type 2 diabetes mellitus with other diabetic kidney complication (HCC) Primary hyperaldosteronism (HCC) Hyperaldosteronism, unspecified documented in this encounter [facility] note* Diagnosis Hypogonadism in male Primary hyperaldosteronism (HCC) Hyperaldosteronism, unspecified documented in this encounter [facility] note* Diagnosis Hypogonadism in male- Primary Primary hyperaldosteronism (HCC) Hyperaldosteronism, unspecified documented in this encounter [facility] note* Diagnosis Pre-operative examination- Primary Preoperative examination, unspecified Mixed hyperlipidemia Uncontrolled hypertension Unspecified essential hypertension Type 2 diabetes mellitus with other diabetic kidney complication (HCC) Sleep apnea, unspecified type Class 1 obesity due to excess calories with body mass index (BMI) of 31.0 to 31.9 in adult, unspecified whether serious comorbidity present Primary hyperaldosteronism (HCC) Hyperaldosteronism, unspecified documented in this encounter [facility] note* Diagnosis Hyperaldosteronism (HCC)- Primary Hyperaldosteronism, unspecified Uncontrolled hypertension Unspecified essential hypertension Disorder of adrenal gland (HCC) Unspecified disorder of adrenal glands documented in this encounter [facility] for referral (narrative)* Outpatient Procedure (Routine) - Pending Review Specialty Diagnoses / Procedures Referred By Contac t [facility]erred To [facility] Diagnoses Pre-operative examination Procedures ECG COMPLETE ECG ROUTINE ECG W/LEAST 12 LDS W/I&R Dara Yu APRN.CNP [address] [place] [address] [facility] [address] [place] [id number] Referral ID Status Reason Start Date Expiration Date Visits Requested Visits Authorized [id number] Pending Review Auto-Generat ed Referral 06/07/2023 06/06/2024 1 1 [facility] Summary Purpose Family History No Family History Records FoundNo Family History Records FoundNo Family History Records Found Advance Directives No Advanced Directives Records FoundNo Advanced Directives Records FoundNo Advanced Directives Records Found Medications Administered Section Active Administered Medications - up to 3 most recent administrations Medication Order MAR Action Action Date Dose Rate Site testosterone cypionate 200 mg injection (DEPO-TESTOSTERONE) 200 mg, INTRAMUSCULAR, EVERY 2 WEEKS, 8 doses, First dose on Patricia 08/28/21 at 0000, Last dose on Patricia 12/04/21 at 0000, Hazardous Potential Reproductive Risk Drug: Use appropriate PPE. Given 10/09/2021 2:40 PM EDT 200 mg Buttocks, Right Active Administered Medications - up to 3 most recent administrations Medication Order MAR Action Action Date Dose Rate Site testosterone cypionate 200 mg injection (DEPO-TESTOSTERONE) 200 mg, INTRAMUSCULAR, EVERY 2 WEEKS, 8 doses, First dose on Patricia 08/28/21 at 0000, Last dose on Patricia 12/04/21 at 0000, Hazardous Potential Reproductive Risk Drug: Use appropriate PPE. Given 10/23/2021 2:32 PM EDT 200 mg Buttocks, Left Active Administered Medications - up to 3 most recent administrations Medication Order MAR Action Action Date Dose Rate Site testosterone cypionate 200 mg injection (DEPO-TESTOSTERONE) 200 mg, INTRAMUSCULAR, EVERY 2 WEEKS, 8 doses, First dose on Patricia 08/28/21 at 0000, Last dose on Patricia 12/04/21 at 0000, Hazardous Potential Reproductive Risk Drug: Use appropriate PPE. Given 11/20/2021 2:34 PM EDT 200 mg Buttocks, Right Active Administered Medications - up to 3 most recent administrations Medication Order MAR Action Action Date Dose Rate Site testosterone cypionate 200 mg injection (DEPO-TESTOSTERONE) 200 mg, INTRAMUSCULAR, EVERY 2 WEEKS, 8 doses, First dose on Patricia 08/28/21 at 0000, Last dose on Patricia 12/04/21 at 0000, Hazardous Potential Reproductive Risk Drug: Use appropriate PPE. Given 12/04/2021 2:42 PM EDT 200 mg Buttocks, Left Inactive Administered Medications - up to 3 most recent administrations Medication Order MAR Action Action Date Dose Rate Site testosterone cypionate 200 mg injection (DEPO-TESTOSTERONE) 200 mg, INTRAMUSCULAR, EVERY 2 WEEKS, 8 doses, First dose on Patricia 08/28/21 at 0000, Last dose on Patricia 12/04/21 at 0000, Hazardous Potential Reproductive Risk Drug: Use appropriate PPE. Given 12/18/2021 2:35 PM EDT 200 mg Buttocks, Right Active Administered Medications - up to 3 most recent administrations Medication Order MAR Action Action Date Dose Rate Site testosterone cypionate 200 mg injection (DEPO-TESTOSTERONE) 200 mg, INTRAMUSCULAR, EVERY 2 WEEKS, 8 doses, First dose on Patricia 01/01/22 at 0000, Last dose on Patricia 04/09/22 at 0000, Hazardous Potential Reproductive Risk Drug: Use appropriate PPE. Given 01/01/2022 2:34 PM EDT 200 mg Buttocks, Left Active Administered Medications - up to 3 most recent administrations Medication Order MAR Action Action Date Dose Rate Site testosterone cypionate 200 mg injection (DEPO-TESTOSTERONE) 200 mg, INTRAMUSCULAR, EVERY 2 WEEKS, 8 doses, First dose on Patricia 01/01/22 at 0000, Last dose on Patricia 04/09/22 at 0000, Hazardous Potential Reproductive Risk Drug: Use appropriate PPE. Given 01/14/2022 2:29 PM EDT 200 mg Buttocks, Right Active Administered Medications - up to 3 most recent administrations Medication Order MAR Action Action Date Dose Rate Site testosterone cypionate 200 mg injection (DEPO-TESTOSTERONE) 200 mg, INTRAMUSCULAR, EVERY 2 WEEKS, 8 doses, First dose on Patricia 01/01/22 at 0000, Last dose on Patricia 04/09/22 at 0000, Hazardous Potential Reproductive Risk Drug: Use appropriate PPE. Given 01/29/2022 2:35 PM EDT 200 mg Buttocks, Left Active Administered Medications - up to 3 most recent administrations Medication Order MAR Action Action Date Dose Rate Site testosterone cypionate 200 mg injection (DEPO-TESTOSTERONE) 200 mg, INTRAMUSCULAR, EVERY 2 WEEKS, 8 doses, First dose on Patricia 01/01/22 at 0000, Last dose on Patricia 04/09/22 at 0000, Hazardous Potential Reproductive Risk Drug: Use appropriate PPE. Given 02/12/2022 2:23 PM EDT 200 mg Buttocks, Right Active Administered Medications - up to 3 most recent administrations Medication Order MAR Action Action Date Dose Rate Site testosterone cypionate 200 mg injection (DEPO-TESTOSTERONE) 200 mg, INTRAMUSCULAR, EVERY 2 WEEKS, 8 doses, First dose on Patricia 01/01/22 at 0000, Last dose on Patricia 04/09/22 at 0000, Hazardous Potential Reproductive Risk Drug: Use appropriate PPE. Given 02/26/2022 2:29 PM EDT 200 mg Buttocks, Left Active Administered Medications - up to 3 most recent administrations Medication Order MAR Action Action Date Dose Rate Site testosterone cypionate 200 mg injection (DEPO-TESTOSTERONE) 200 mg, INTRAMUSCULAR, EVERY 2 WEEKS, 8 doses, First dose on Patricia 01/01/22 at 0000, Last dose on Patricia 04/09/22 at 0000, Hazardous Potential Reproductive Risk Drug: Use appropriate PPE. Given 03/12/2022 2:25 PM EDT 200 mg Buttocks, Right Active Administered Medications - up to 3 most recent administrations Medication Order MAR Action Action Date Dose Rate Site testosterone cypionate 200 mg injection (DEPO-TESTOSTERONE) 200 mg, INTRAMUSCULAR, EVERY 2 WEEKS, 8 doses, First dose on Patricia 01/01/22 at 0000, Last dose on Patricia 04/09/22 at 0000, Hazardous Potential Reproductive Risk Drug: Use appropriate PPE. Given 03/26/2022 2:30 PM EDT 200 mg Buttocks, Left Inactive Administered Medications - up to 3 most recent administrations Medication Order MAR Action Action Date Dose Rate Site testosterone cypionate 200 mg injection (DEPO-TESTOSTERONE) 200 mg, INTRAMUSCULAR, EVERY 2 WEEKS, 8 doses, First dose on Patricia 01/01/22 at 0000, Last dose on Patricia 04/09/22 at 0000, Hazardous Potential Reproductive Risk Drug: Use appropriate PPE. Given 04/09/2022 2:17 PM EDT 200 mg Buttocks, Right Active Administered Medications - up to 3 most recent administrations Medication Order MAR Action Action Date Dose Rate Site testosterone cypionate 200 mg injection (DEPO-TESTOSTERONE) 200 mg, INTRAMUSCULAR, EVERY 2 WEEKS, 8 doses, First dose on Patricia 04/23/22 at 0000, Last dose on Patricia 07/30/22 at 0000, Hazardous Potential Reproductive Risk Drug: Use appropriate PPE. Given 04/23/2022 2:21 PM EDT 200 mg Buttocks, Left Active Administered Medications - up to 3 most recent administrations Medication Order MAR Action Action Date Dose Rate Site testosterone cypionate 200 mg injection (DEPO-TESTOSTERONE) 200 mg, INTRAMUSCULAR, EVERY 2 WEEKS, 8 doses, First dose on Patricia 04/23/22 at 0000, Last dose on Patricia 07/30/22 at 0000, Hazardous Potential Reproductive Risk Drug: Use appropriate PPE. Given 06/18/2022 2:31 PM EST 200 mg Buttocks, Right Active Administered Medications - up to 3 most recent administrations Medication Order MAR Action Action Date Dose Rate Site testosterone cypionate 200 mg injection (DEPO-TESTOSTERONE) 200 mg, INTRAMUSCULAR, EVERY 2 WEEKS, 8 doses, First dose on Patricia 04/23/22 at 0000, Last dose on Patricia 07/30/22 at 0000, Hazardous Potential Reproductive Risk Drug: Use appropriate PPE. Given 07/16/2022 2:46 PM EST 200 mg Buttocks, Right Active Administered Medications - up to 3 most recent administrations Medication Order MAR Action Action Date Dose Rate Site testosterone cypionate 200 mg injection (DEPO-TESTOSTERONE) 200 mg, INTRAMUSCULAR, EVERY 2 WEEKS, 8 doses, First dose on Patricia 04/23/22 at 0000, Last dose on Patricia 07/30/22 at 0000, Hazardous Potential Reproductive Risk Drug: Use appropriate PPE. Given 07/30/2022 1:14 PM EST 200 mg Buttocks, Left Active Administered Medications - up to 3 most recent administrations Medication Order MAR Action Action Date Dose Rate Site testosterone cypionate 200 mg injection (DEPO-TESTOSTERONE) 200 mg, INTRAMUSCULAR, EVERY 2 WEEKS, 6 doses, First dose on Patricia 08/13/22 at 0000, Last dose on Patricia 10/22/22 at 0000, Hazardous Potential Reproductive Risk Drug: Use appropriate PPE. Given 08/13/2022 2:16 PM EST 200 mg Buttocks, Right Active Administered Medications - up to 3 most recent administrations Medication Order MAR Action Action Date Dose Rate Site testosterone cypionate 200 mg injection (DEPO-TESTOSTERONE) 200 mg, INTRAMUSCULAR, EVERY 2 WEEKS, 6 doses, First dose on Patricia 08/13/22 at 0000, Last dose on Patricia 10/22/22 at 0000, Hazardous Potential Reproductive Risk Drug: Use appropriate PPE. Given 09/10/2022 3:12 PM EST 200 mg Buttocks, Left Active Administered Medications - up to 3 most recent administrations Medication Order MAR Action Action Date Dose Rate Site testosterone cypionate 200 mg injection (DEPO-TESTOSTERONE) 200 mg, INTRAMUSCULAR, EVERY 2 WEEKS, 6 doses, First dose on Patricia 08/13/22 at 0000, Last dose on Patricia 10/22/22 at 0000, Hazardous Potential Reproductive Risk Drug: Use appropriate PPE. Given 09/25/2022 1:54 PM EDT 200 mg Buttocks, Right Active Administered Medications - up to 3 most recent administrations Medication Order MAR Action Action Date Dose Rate Site testosterone cypionate 200 mg injection (DEPO-TESTOSTERONE) 200 mg, INTRAMUSCULAR, EVERY 2 WEEKS, 6 doses, First dose on Patricia 08/13/22 at 0000, Last dose on Patricia 10/22/22 at 0000, Hazardous Potential Reproductive Risk Drug: Use appropriate PPE. Given 10/08/2022 2:27 PM EDT 200 mg Buttocks, Left Active Administered Medications - up to 3 most recent administrations Medication Order MAR Action Action Date Dose Rate Site testosterone cypionate 200 mg injection (DEPO-TESTOSTERONE) 200 mg, INTRAMUSCULAR, EVERY 2 WEEKS, 6 doses, First dose on Patricia 08/13/22 at 0000, Last dose on Patricia 10/22/22 at 0000, Hazardous Potential Reproductive Risk Drug: Use appropriate PPE. Given 10/22/2022 2:23 PM EDT 200 mg Buttocks, Right Active Administered Medications - up to 3 most recent administrations Medication Order MAR Action Action Date Dose Rate Site testosterone cypionate 200 mg injection (DEPO-TESTOSTERONE) 200 mg, INTRAMUSCULAR, EVERY 2 WEEKS, 6 doses, First dose on Patricia 11/19/22 at 0000, Last dose on Patricia 01/28/23 at 0000, Hazardous Potential Reproductive Risk Drug: Use appropriate PPE. Given 12/03/2022 2:42 PM EDT 200 mg Buttocks, Right Active Administered Medications - up to 3 most recent administrations Medication Order MAR Action Action Date Dose Rate Site testosterone cypionate 200 mg injection (DEPO-TESTOSTERONE) 200 mg, INTRAMUSCULAR, EVERY 2 WEEKS, 6 doses, First dose on Patricia 11/19/22 at 0000, Last dose on Patricia 01/28/23 at 0000, Hazardous Potential Reproductive Risk Drug: Use appropriate PPE. Given 12/30/2022 2:55 PM EDT 200 mg Buttocks, Right Active Administered Medications - up to 3 most recent administrations Medication Order MAR Action Action Date Dose Rate Site testosterone cypionate 200 mg injection (DEPO-TESTOSTERONE) 200 mg, INTRAMUSCULAR, EVERY 2 WEEKS, 6 doses, First dose on Patricia 11/19/22 at 0000, Last dose on Patricia 01/28/23 at 0000, Hazardous Potential Reproductive Risk Drug: Use appropriate PPE. Given 01/20/2023 11:56 AM EDT 200 mg Buttocks, Left Inactive Administered Medications - up to 3 most recent administrations Medication Order MAR Action Action Date Dose Rate Site testosterone cypionate 200 mg injection (DEPO-TESTOSTERONE) 200 mg, INTRAMUSCULAR, EVERY 2 WEEKS, 6 doses, First dose on Patricia 11/19/22 at 0000, Last dose on Patricia 01/28/23 at 0000, Hazardous Potential Reproductive Risk Drug: Use appropriate PPE. Given 02/11/2023 2:35 PM EDT 200 mg Buttocks, Right Active Administered Medications - up to 3 most recent administrations Medication Order MAR Action Action Date Dose Rate Site testosterone cypionate 200 mg injection (DEPO-TESTOSTERONE) 200 mg, INTRAMUSCULAR, EVERY 3 WEEKS, 6 doses, First dose on Patricia 03/04/23 at 0000, Last dose on Patricia 06/17/23 at 0000, Hazardous Potential Reproductive Risk Drug: Use appropriate PPE. Given 03/05/2023 1:59 PM EDT 200 mg Buttocks, Left Active Administered Medications - up to 3 most recent administrations Medication Order MAR Action Action Date Dose Rate Site testosterone cypionate 200 mg injection (DEPO-TESTOSTERONE) 200 mg, INTRAMUSCULAR, EVERY 3 WEEKS, 6 doses, First dose on Patricia 03/04/23 at 0000, Last dose on Patricia 06/17/23 at 0000, Hazardous Potential Reproductive Risk Drug: Use appropriate PPE. Given 03/24/2023 2:16 PM EDT 200 mg Buttocks, Right Active Administered Medications - up to 3 most recent administrations Medication Order MAR Action Action Date Dose Rate Site testosterone cypionate 200 mg injection (DEPO-TESTOSTERONE) 200 mg, INTRAMUSCULAR, EVERY 3 WEEKS, 6 doses, First dose on Patricia 03/04/23 at 0000, Last dose on Patricia 06/17/23 at 0000, Hazardous Potential Reproductive Risk Drug: Use appropriate PPE. Given 05/25/2023 1:05 PM EST 200 mg Buttocks, Right Reason for Referral Specialty Diagnoses / Procedures Referred By Emilie crawley Referred To Contact Podiatry Diagnoses Type 2 diabetes mellitus with other diabetic kidney complication (HCC) Ingrown toenail Procedures CONSULT TO PODIATRY OFFICE/OUTPATIENT [facility] [id number] MINUTES Leanna Rangel MD [address] [place] [address] Referral ID Status Reason Start Date Expiration Date Visits Requested Visits Authorized [id number] Pending Review PCP Requested Referral 02/26/2022 02/26/2023 1 1 Specialty Diagnoses / Procedures Referred By Contac t Referred To Contact Endocrinology Diagnoses Hypogonadism in male Aldosteronism (HCC) Uncontrolled hypertension Procedures CONSULT TO ENDOCRINOLOGY OFFICE[facility] [facility] 60-74 [facility]ES Leanna Rangel MD [address] [place] [address] Referral ID Status Reason Start Date Expiration Date Visits Requested Visits Authorized [id number] Pending Review PCP Requested Referral 12/30/2022 12/30/2023 1 1 Specialty Diagnoses / Procedures Referred By Contac t Referred To Contact MR IMAGING Diagnoses Uncontrolled hypertension Hyperaldosteronism (HCC) Disorder of adrenal gland (HCC) Procedures MRI ADRENAL WO/W IVCON MRI ABDOMEN W/O & W/CONTRAST [place] [address] [place] [address] Mr Imaging Referral ID Status Reason Start Date Expiration Date Visits Requested Visits Authorized [id number] Pending Review Auto-Generat ed Referral 01/01/2023 01/31/2024 1 1 Specialty Diagnoses / Procedures Referred By Contac t Referred To Contact Diagnoses Hyperaldosteronism (HCC) Uncontrolled hypertension Procedures CONSULT TO ENDOCRINE SURGERY OFFICE/OUTPATIENT [facility] 60-[place] [address] [place] [address] Referral ID Status Reason Start Date Expiration Date Visits Requested Visits Authorized [id number] Pending Review PCP Requested Referral 04/12/2023 04/11/2024 1 1 Specialty Diagnoses / Procedures Referred By Contac t Referred To Contact Diagnoses Primary hyperaldosteronism (HCC) Procedures REFER TO PACC - PRE ANESTHESIA CONSULTATION CLINIC OFFICE/OUTPATIENT [facility] 60-74 MINUTES Antonio Neri Jr., MD [address] [place] [address] Referral ID Status Reason Start Date Expiration Date Visits Requested Visits Authorized [id number] Pending Review PCP Requested Referral 3 04/27/2024 1 1 Additional Source Comments (unrecognized sect ion and content) No Status Records FoundNo Status Records FoundNo Status Records Found INFORMATION SOURCE (unrecogn ized section and content) DATE CREATED AUTHOR AUTHOR'S ORGANIZ ATION 01/22/2023 [facility] DATE CREATED AUTHOR AUTHOR'S ORGANIZ ATION 07/14/2023 [facility] Source Comments (unrecognize d section and content) In the event this informatio n is protected by the Federal Confidentiality of Alcohol and Drug Abuse Patient Records regulations: The Federal rules restrict any use of the information to criminally investigate or prosecute any alcohol or drug abuse patient.[facility] the event this information is protected by the Federal Confidentiality of Alcohol and Drug Abuse Patient Records regulations: The Federal rules restrict any use of the information to criminally investigate or prosecute any alcohol or drug abuse patient.[facility] SystemIn the event this information is protected by the Federal Confidentiality of Alcohol and Drug Abuse Patient Records regulations: The Federal rules restrict any use of the information to criminally investigate or prosecute any alcohol or drug abuse patient.[facility] the event this information is protected by the Federal Confidentiality of Alcohol and Drug Abuse Patient Records regulations: The Federal rules restrict any use of the information to criminally investigate or prosecute any alcohol or drug abuse patient.[facility] SystemIn the event this information is protected by the Federal Confidentiality of Alcohol and Drug Abuse Patient Records regulations: The Federal rules restrict any use of the information to criminally investigate or prosecute any alcohol or drug abuse patient.[facility] SystemIn the event this information is protected by the Federal Confidentiality of Alcohol and Drug Abuse Patient Records regulations: The Federal rules restrict any use of the information to criminally investigate or prosecute any alcohol or drug abuse patient.[facility] SystemIn the event this information is protected by the Federal Confidentiality of Alcohol and Drug Abuse Patient Records regulations: The Federal rules restrict any use of the information to criminally investigate or prosecute any alcohol or drug abuse patient.[facility] SystemIn the event this information is protected by the Federal Confidentiality of Alcohol and Drug Abuse Patient Records regulations: The Federal rules restrict any use of the information to criminally investigate or prosecute any alcohol or drug abuse patient.[facility] SystemIn the event this information is protected by the Federal Confidentiality of Alcohol and Drug Abuse Patient Records regulations: The Federal rules restrict any use of the information to criminally investigate or prosecute any alcohol or drug abuse patient.[facility] SystemIn the event this information is protected by the Federal Confidentiality of Alcohol and Drug Abuse Patient Records regulations: The Federal rules restrict any use of the information to criminally investigate or prosecute any alcohol or drug abuse patient.[facility] SystemIn the event this information is protected by the Federal Confidentiality of Alcohol and Drug Abuse Patient Records regulations: The Federal rules restrict any use of the information to criminally investigate or prosecute any alcohol or drug abuse patient.[facility] SystemIn the event this information is protected by the Federal Confidentiality of Alcohol and Drug Abuse Patient Records regulations: The Federal rules restrict any use of the information to criminally investigate or prosecute any alcohol or drug abuse patient.[facility] SystemIn the event this information is protected by the Federal Confidentiality of Alcohol and Drug Abuse Patient Records regulations: The Federal rules restrict any use of the information to criminally investigate or prosecute any alcohol or drug abuse patient.[facility] SystemIn the event this information is protected by the Federal Confidentiality of Alcohol and Drug Abuse Patient Records regulations: The Federal rules restrict any use of the information to criminally investigate or prosecute any alcohol or drug abuse patient.[facility] SystemIn the event this information is protected by the Federal Confidentiality of Alcohol and Drug Abuse Patient Records regulations: The Federal rules restrict any use of the information to criminally investigate or prosecute any alcohol or drug abuse patient.[facility] SystemIn the event this information is protected by the Federal Confidentiality of Alcohol and Drug Abuse Patient Records regulations: The Federal rules restrict any use of the information to criminally investigate or prosecute any alcohol or drug abuse patient.[facility] SystemIn the event this information is protected by the Federal Confidentiality of Alcohol and Drug Abuse Patient Records regulations: The Federal rules restrict any use of the information to criminally investigate or prosecute any alcohol or drug abuse patient.[facility] SystemIn the event this information is protected by the Federal Confidentiality of Alcohol and Drug Abuse Patient Records regulations: The Federal rules restrict any use of the information to criminally investigate or prosecute any alcohol or drug abuse patient.[facility] SystemIn the event this information is protected by the Federal Confidentiality of Alcohol and Drug Abuse Patient Records regulations: The Federal rules restrict any use of the information to criminally investigate or prosecute any alcohol or drug abuse patient.[facility] SystemIn the event this information is protected by the Federal Confidentiality of Alcohol and Drug Abuse Patient Records regulations: The Federal rules restrict any use of the information to criminally investigate or prosecute any alcohol or drug abuse patient.[facility] SystemIn the event this information is protected by the Federal Confidentiality of Alcohol and Drug Abuse Patient Records regulations: The Federal rules restrict any use of the information to criminally investigate or prosecute any alcohol or drug abuse patient.[facility] SystemIn the event this information is protected by the Federal Confidentiality of Alcohol and Drug Abuse Patient Records regulations: The Federal rules restrict any use of the information to criminally investigate or prosecute any alcohol or drug abuse patient.[facility] SystemIn the event this information is protected by the Federal Confidentiality of Alcohol and Drug Abuse Patient Records regulations: The Federal rules restrict any use of the information to criminally investigate or prosecute any alcohol or drug abuse patient.[facility] SystemIn the event this information is protected by the Federal Confidentiality of Alcohol and Drug Abuse Patient Records regulations: The Federal rules restrict any use of the information to criminally investigate or prosecute any alcohol or drug abuse patient.[facility] SystemIn the event this information is protected by the Federal Confidentiality of Alcohol and Drug Abuse Patient Records regulations: The Federal rules restrict any use of the information to criminally investigate or prosecute any alcohol or drug abuse patient.[facility] SystemIn the event this information is protected by the Federal Confidentiality of Alcohol and Drug Abuse Patient Records regulations: The Federal rules restrict any use of the information to criminally investigate or prosecute any alcohol or drug abuse patient.[facility] SystemIn the event this information is protected by the Federal Confidentiality of Alcohol and Drug Abuse Patient Records regulations: The Federal rules restrict any use of the information to criminally investigate or prosecute any alcohol or drug abuse patient.[facility] SystemIn the event this information is protected by the Federal Confidentiality of Alcohol and Drug Abuse Patient Records regulations: The Federal rules restrict any use of the information to criminally investigate or prosecute any alcohol or drug abuse patient.[facility] SystemIn the event this information is protected by the Federal Confidentiality of Alcohol and Drug Abuse Patient Records regulations: The Federal rules restrict any use of the information to criminally investigate or prosecute any alcohol or drug abuse patient.[facility] SystemIn the event this information is protected by the Federal Confidentiality of Alcohol and Drug Abuse Patient Records regulations: The Federal rules restrict any use of the information to criminally investigate or prosecute any alcohol or drug abuse patient.[facility] SystemIn the event this information is protected by the Federal Confidentiality of Alcohol and Drug Abuse Patient Records regulations: The Federal rules restrict any use of the information to criminally investigate or prosecute any alcohol or drug abuse patient.[facility] SystemIn the event this information is protected by the Federal Confidentiality of Alcohol and Drug Abuse Patient Records regulations: The Federal rules restrict any use of the information to criminally investigate or prosecute any alcohol or drug abuse patient.[facility] SystemIn the event this information is protected by the Federal Confidentiality of Alcohol and Drug Abuse Patient Records regulations: The Federal rules restrict any use of the information to criminally investigate or prosecute any alcohol or drug abuse patient.[facility] SystemIn the event this information is protected by the Federal Confidentiality of Alcohol and Drug Abuse Patient Records regulations: The Federal rules restrict any use of the information to criminally investigate or prosecute any alcohol or drug abuse patient.[facility] SystemIn the event this information is protected by the Federal Confidentiality of Alcohol and Drug Abuse Patient Records regulations: The Federal rules restrict any use of the information to criminally investigate or prosecute any alcohol or drug abuse patient.[facility] SystemIn the event this information is protected by the Federal Confidentiality of Alcohol and Drug Abuse Patient Records regulations: The Federal rules restrict any use of the information to criminally investigate or prosecute any alcohol or drug abuse patient.[facility] SystemIn the event this information is protected by the Federal Confidentiality of Alcohol and Drug Abuse Patient Records regulations: The Federal rules restrict any use of the information to criminally investigate or prosecute any alcohol or drug abuse patient.[facility] SystemIn the event this information is protected by the Federal Confidentiality of Alcohol and Drug Abuse Patient Records regulations: The Federal rules restrict any use of the information to criminally investigate or prosecute any alcohol or drug abuse patient.[facility] SystemIn the event this information is protected by the Federal Confidentiality of Alcohol and Drug Abuse Patient Records regulations: The Federal rules restrict any use of the information to criminally investigate or prosecute any alcohol or drug abuse patient.[facility] SystemIn the event this information is protected by the Federal Confidentiality of Alcohol and Drug Abuse Patient Records regulations: The Federal rules restrict any use of the information to criminally investigate or prosecute any alcohol or drug abuse patient.[facility] SystemIn the event this information is protected by the Federal Confidentiality of Alcohol and Drug Abuse Patient Records regulations: The Federal rules restrict any use of the information to criminally investigate or prosecute any alcohol or drug abuse patient.[facility] SystemIn the event this information is protected by the Federal Confidentiality of Alcohol and Drug Abuse Patient Records regulations: The Federal rules restrict any use of the information to criminally investigate or prosecute any alcohol or drug abuse patient.[facility] SystemIn the event this information is protected by the Federal Confidentiality of Alcohol and Drug Abuse Patient Records regulations: The Federal rules restrict any use of the information to criminally investigate or prosecute any alcohol or drug abuse patient.[facility] SystemIn the event this information is protected by the Federal Confidentiality of Alcohol and Drug Abuse Patient Records regulations: The Federal rules restrict any use of the information to criminally investigate or prosecute any alcohol or drug abuse patient.[facility] SystemIn the event this information is protected by the Federal Confidentiality of Alcohol and Drug Abuse Patient Records regulations: The Federal rules restrict any use of the information to criminally investigate or prosecute any alcohol or drug abuse patient.[facility] SystemIn the event this information is protected by the Federal Confidentiality of Alcohol and Drug Abuse Patient Records regulations: The Federal rules restrict any use of the information to criminally investigate or prosecute any alcohol or drug abuse patient.[facility] SystemIn the event this information is protected by the Federal Confidentiality of Alcohol and Drug Abuse Patient Records regulations: The Federal rules restrict any use of the information to criminally investigate or prosecute any alcohol or drug abuse patient.[facility] SystemIn the event this information is protected by the Federal Confidentiality of Alcohol and Drug Abuse Patient Records regulations: The Federal rules restrict any use of the information to criminally investigate or prosecute any alcohol or drug abuse patient.[facility] SystemIn the event this information is protected by the Federal Confidentiality of Alcohol and Drug Abuse Patient Records regulations: The Federal rules restrict any use of the information to criminally investigate or prosecute any alcohol or drug abuse patient.[facility] SystemIn the event this information is protected by the Federal Confidentiality of Alcohol and Drug Abuse Patient Records regulations: The Federal rules restrict any use of the information to criminally investigate or prosecute any alcohol or drug abuse patient.[facility] the event this information is protected by the Federal Confidentiality of Alcohol and Drug Abuse Patient Records regulations: The Federal rules restrict any use of the information to criminally investigate or prosecute any alcohol or drug abuse patient.[facility] SystemIn the event this information is protected by the Federal Confidentiality of Alcohol and Drug Abuse Patient Records regulations: The Federal rules restrict any use of the information to criminally investigate or prosecute any alcohol or drug abuse patient.[facility] SystemIn the event this information is protected by the Federal Confidentiality of Alcohol and Drug Abuse Patient Records regulations: The Federal rules restrict any use of the information to criminally investigate or prosecute any alcohol or drug abuse patient.[facility]In the event this information is protected by the Federal Confidentiality of Alcohol and Drug Abuse Patient Records regulations: The Federal rules restrict any use of the information to criminally investigate or prosecute any alcohol or drug abuse patient.[facility] SystemIn the event this information is protected by the Federal Confidentiality of Alcohol and Drug Abuse Patient Records regulations: The Federal rules restrict any use of the information to criminally investigate or prosecute any alcohol or drug abuse patient.[facility] SystemIn the event this information is protected by the Federal Confidentiality of Alcohol and Drug Abuse Patient Records regulations: The Federal rules restrict any use of the information to criminally investigate or prosecute any alcohol or drug abuse patient.[facility] SystemIn the event this information is protected by the Federal Confidentiality of Alcohol and Drug Abuse Patient Records regulations: The Federal rules restrict any use of the information to criminally investigate or prosecute any alcohol or drug abuse patient.[facility] SystemIn the event this information is protected by the Federal Confidentiality of Alcohol and Drug Abuse Patient Records regulations: The Federal rules restrict any use of the information to criminally investigate or prosecute any alcohol or drug abuse patient.[facility] SystemIn the event this information is protected by the Federal Confidentiality of Alcohol and Drug Abuse Patient Records regulations: The Federal rules restrict any use of the information to criminally investigate or prosecute any alcohol or drug abuse patient.[facility] SystemIn the event this information is protected by the Federal Confidentiality of Alcohol and Drug Abuse Patient Records regulations: The Federal rules restrict any use of the information to criminally investigate or prosecute any alcohol or drug abuse patient.[facility] SystemIn the event this information is protected by the Federal Confidentiality of Alcohol and Drug Abuse Patient Records regulations: The Federal rules restrict any use of the information to criminally investigate or prosecute any alcohol or drug abuse patient.[facility] SystemIn the event this information is protected by the Federal Confidentiality of Alcohol and Drug Abuse Patient Records regulations: The Federal rules restrict any use of the information to criminally investigate or prosecute any alcohol or drug abuse patient.[facility] SystemIn the event this information is protected by the Federal Confidentiality of Alcohol and Drug Abuse Patient Records regulations: The Federal rules restrict any use of the information to criminally investigate or prosecute any alcohol or drug abuse patient.[facility] SystemIn the event this information is protected by the Federal Confidentiality of Alcohol and Drug Abuse Patient Records regulations: The Federal rules restrict any use of the information to criminally investigate or prosecute any alcohol or drug abuse patient.[facility] SystemIn the event this information is protected by the Federal Confidentiality of Alcohol and Drug Abuse Patient Records regulations: The Federal rules restrict any use of the information to criminally investigate or prosecute any alcohol or drug abuse patient.[facility] SystemIn the event this information is protected by the Federal Confidentiality of Alcohol and Drug Abuse Patient Records regulations: The Federal rules restrict any use of the information to criminally investigate or prosecute any alcohol or drug abuse patient.[facility] SystemIn the event this information is protected by the Federal Confidentiality of Alcohol and Drug Abuse Patient Records regulations: The Federal rules restrict any use of the information to criminally investigate or prosecute any alcohol or drug abuse patient.[facility] SystemIn the event this information is protected by the Federal Confidentiality of Alcohol and Drug Abuse Patient Records regulations: The Federal rules restrict any use of the information to criminally investigate or prosecute any alcohol or drug abuse patient.[facility] SystemIn the event this information is protected by the Federal Confidentiality of Alcohol and Drug Abuse Patient Records regulations: The Federal rules restrict any use of the information to criminally investigate or prosecute any alcohol or drug abuse patient.[facility] SystemIn the event this information is protected by the Federal Confidentiality of Alcohol and Drug Abuse Patient Records regulations: The Federal rules restrict any use of the information to criminally investigate or prosecute any alcohol or drug abuse patient.[facility] SystemIn the event this information is protected by the Federal Confidentiality of Alcohol and Drug Abuse Patient Records regulations: The Federal rules restrict any use of the information to criminally investigate or prosecute any alcohol or drug abuse patient.[facility] SystemIn the event this information is protected by the Federal Confidentiality of Alcohol and Drug Abuse Patient Records regulations: The Federal rules restrict any use of the information to criminally investigate or prosecute any alcohol or drug abuse patient.[facility] SystemIn the event this information is protected by the Federal Confidentiality of Alcohol and Drug Abuse Patient Records regulations: The Federal rules restrict any use of the information to criminally investigate or prosecute any alcohol or drug abuse patient.[facility] SystemIn the event this information is protected by the Federal Confidentiality of Alcohol and Drug Abuse Patient Records regulations: The Federal rules restrict any use of the information to criminally investigate or prosecute any alcohol or drug abuse patient.[facility] SystemIn the event this information is protected by the Federal Confidentiality of Alcohol and Drug Abuse Patient Records regulations: The Federal rules restrict any use of the information to criminally investigate or prosecute any alcohol or drug abuse patient.[facility] SystemIn the event this information is protected by the Federal Confidentiality of Alcohol and Drug Abuse Patient Records regulations: The Federal rules restrict any use of the information to criminally investigate or prosecute any alcohol or drug abuse patient.[facility] SystemIn the event this information is protected by the Federal Confidentiality of Alcohol and Drug Abuse Patient Records regulations: The Federal rules restrict any use of the information to criminally investigate or prosecute any alcohol or drug abuse patient.[facility] SystemIn the event this information is protected by the Federal Confidentiality of Alcohol and Drug Abuse Patient Records regulations: The Federal rules restrict any use of the information to criminally investigate or prosecute any alcohol or drug abuse patient.[facility] SystemIn the event this information is protected by the Federal Confidentiality of Alcohol and Drug Abuse Patient Records regulations: The Federal rules restrict any use of the information to criminally investigate or prosecute any alcohol or drug abuse patient.[facility] Reason for Visit (unrecogniz ed section and content) Reason Comments Imm/Inj Reason Comments testosterone injection Reason Comments Low Testosterone Imm/Inj Reason Comments Patient Update Reason Comments Follow Up DM and kidney functi on Reason Comments Medication Problem Reason Comments Orders Reason Onset Date Comments Refill Request 05/22/2021 Reason Comments Follow Up 1 month Reason Comments Results Reason Onset Date Comments Refill Request 01/29/2022 Reason Comments Follow Up Reason Comments Blood Pressure Check Reason Comments Physical Reported fall onto k nee a couple months ago Reason Comments Testosterone injection Imm/Inj Reason Comments requesting phone number Jardiance manufa cturer that was given to him earlier Reason Onset Date Comments Refill Request 06/04/2022 Reason Onset Date Comments Refill Request 07/16/2022 Reason Comments Patient Question Reason Comments Follow Up Reason Comments Blood Pressure Follow up Reason Comments Cpap prescription Reason Comments Blood Pressure Reason Comments Medication Question Reason Comments Results Reason Comments Hypertension Specialty Diagnoses / Procedures Referred By Contac t Referred To Contact Endocrinology Diagnoses Hypogonadism in male Aldosteronism (HCC) Uncontrolled hypertension Procedures CONSULT TO ENDOCRINOLOGY OFFICE/OUTPATIENT NEW HIGH MDM 60-74 MINUTES Leanna Rangel MD [address] [place] [address] Referral ID Status Reason Start Date Expiration Date Visits Requested Visits Authorized [id number] Pending Review PCP Requested Referral 12/30/2022 12/30/2023 1 1 Reason Comments Patient Education Assessment Specialty Diagnoses / Procedures Referred By Contac t Referred To Contact Nutrition Diagnoses Obesity, Class I, BMI 30-34.9 Procedures CONSULT TO NUTRITION THERAPY MEDICAL NUTRITION ASSMT&IVNTJ INDIV EACH 15 OR MEDICAL NUTRITION ASSMT&IVNTJ INDIV EACH 15 OR MEDICAL NUTRITION ASSMT&IVNTJ INDIV EACH 15 OR MEDICAL NUTRITION ASSMT&IVNTJ INDIV EACH 15 OR Leanna Rangel MD [address] [place] [address] Referral ID Status Reason Start Date Expiration Date Visits Requested Visits Authorized [id number] Pending Review PCP Requested Referral 12/17/2022 12/17/2023 1 1 Reason Onset Date Comments Refill Request 02/15/2023 OUT OF MEDICATIO N Reason Comments Appointment Reason Comments Blood Pressure Check Reason Comments Results Patient Update Reason Comments Refill Request Reason Comments Consult FACE SHEET Reason Comments Adrenal Specialty Diagnoses / Procedures Referred By Contac t Referred To Contact Diagnoses Hyperaldosteronism (HCC) Uncontrolled hypertension Procedures CONSULT TO ENDOCRINE SURGERY OFFICE/OUTPATIENT NEW HIGH MDM 60-[place] [id number] [address] Referral ID Status Reason Start Date Expiration Date Visits Requested Visits Authorized [id number] Pending Review PCP Requested Referral 04/12/2023 04/11/2024 1 1 Reason Comments OR [facility] 06/15/23 Robotic lap right la teral adrenalectomy Reason Onset Date Comments Refill Request 05/04/2023 OUT OF MEDICATIO N Reason Comments Rx issue Reason Comments Consult Care Teams (unrecognized sec tion and content) Bottle Hop Relationship Specialty Start Date End Date Leanna Rangel MD [address] [place] [address] PCP - General Family Practice 12/02/17 Bottle Hop Relationship Specialty Start Date End Date Leanna Rangel MD [address] [place] [address] PCP - General Family Practice 12/02/17 Bottle Hop Relationship Specialty Start Date End Date Leanna Rangel MD [address] [place] [address] PCP - General Family Practice 12/02/17 Bottle Hop Relationship Specialty Start Date End Date Leanna Rangel MD [address] [place] [address] PCP - General Family Practice 12/02/17 Bottle Hop Relationship Specialty Start Date End Date Leanna Rangel MD [address] [place] [address] PCP - General Family Practice 12/02/17 Bottle Hop Relationship Specialty Start Date End Date Leanna Rangel MD [address] [place] [address] PCP - General Family Practice 12/02/17 Bottle Hop Relationship Specialty Start Date End Date Leanna Rangel MD [address] [place] [address] PCP - General Family Practice 12/02/17 Bottle Hop Relationship Specialty Start Date End Date Leanna Rangel MD [address] [place] [address] PCP - General Family Practice 12/02/17 Bottle Hop Relationship Specialty Start Date End Date Leanna Rangel MD [address] [place] [address] PCP - General Family Practice 12/02/17 Bottle Hop Relationship Specialty Start Date End Date Leanna Rangel MD [address] [place] [address] PCP - General Family Practice 12/02/17 Bottle Hop Relationship Specialty Start Date End Date Leanna Rangel MD [address] [place] [address] PCP - General Family Practice 12/02/17 Bottle Hop Relationship Specialty Start Date End Date Leanna Rangel MD [address] [place] [address] PCP - General Family Practice 12/02/17 Bottle Hop Relationship Specialty Start Date End Date Leanna Rangel MD [address] [place] [address] PCP - General Family Medicine 12/02/17 Bottle Hop Relationship Specialty Start Date End Date Leanna Rangel MD [address] [place] [address] PCP - General Family Medicine 12/02/17 Bottle Hop Relationship Specialty Start Date End Date Leanna Rangel MD [address] [place] [address] PCP - General Family Medicine 12/02/17 Bottle Hop Relationship Specialty Start Date End Date Leanna Rangel MD [address] [place] [address] PCP - General Family Medicine 12/02/17 Bottle Hop Relationship Specialty Start Date End Date Leanna Rangel MD [address] [place] [address] PCP - General Family Medicine 12/02/17 Bottle Hop Relationship Specialty Start Date End Date Leanna Rangel MD [address] [place] [address] PCP - General Family Medicine 12/02/17 Bottle Hop Relationship Specialty Start Date End Date Leanna Rangel MD [address] [place] [address] PCP - General Family Medicine 12/02/17 Bottle Hop Relationship Specialty Start Date End Date Leanna Rangel MD [address] [place] [address] PCP - General Family Medicine 12/02/17 Bottle Hop Relationship Specialty Start Date End Date Leanna Rangel MD [address] [place] [address] PCP - General Family Medicine 12/02/17 Bottle Hop Relationship Specialty Start Date End Date Leanna Rangel MD [address] [place] [address] PCP - General Family Medicine 12/02/17 Bottle Hop Relationship Specialty Start Date End Date Leanna Rangel MD [address] [place] [address] PCP - General Family Medicine 12/02/17 Bottle Hop Relationship Specialty Start Date End Date Leanna Rangel MD [address] [place] [address] PCP - General Family Medicine 12/02/17 Bottle Hop Relationship Specialty Start Date End Date Leanna Rangel MD [address] [place] [address] PCP - General Family Medicine 12/02/17 Bottle Hop Relationship Specialty Start Date End Date Leanna Rangel MD [address] [place] [address] PCP - General Family Medicine 12/02/17 Bottle Hop Relationship Specialty Start Date End Date Leanna Rangel MD [address] [place] [address] PCP - General Family Medicine 12/02/17 Bottle Hop Relationship Specialty Start Date End Date Leanna Rangel MD [address] [place] [address] PCP - General Family Medicine 12/02/17 Bottle Hop Relationship Specialty Start Date End Date Leanna Rangel MD [address] [place] [address] PCP - General Family Medicine 12/02/17 Bottle Hop Relationship Specialty Start Date End Date Leanna Rangel MD [address] [place] [address] PCP - General Family Medicine 12/02/17 Bottle Hop Relationship Specialty Start Date End Date Leanna Rangel MD [address] [place] [address] PCP - General Family Medicine 12/02/17 Bottle Hop Relationship Specialty Start Date End Date Leanna Rangel MD [address] [place] [address] PCP - General Family Medicine 12/02/17 Bottle Hop Relationship Specialty Start Date End Date Leanna Rangel MD [address] [place] [address] PCP - General Family Medicine 12/02/17 Bottle Hop Relationship Specialty Start Date End Date Leanna Rangel MD [address] [place] [address] PCP - General Family Medicine 12/02/17 Bottle Hop Relationship Specialty Start Date End Date Leanna Rangel MD [address] [place] [address] PCP - General Family Medicine 12/02/17 Bottle Hop Relationship Specialty Start Date End Date Leanna Rangel MD [address] [place] [address] PCP - General Family Medicine 12/02/17 Bottle Hop Relationship Specialty Start Date End Date Leanna Rangel MD [address] [place] [address] PCP - General Family Medicine 12/02/17 Bottle Hop Relationship Specialty Start Date End Date Leanna Rangel MD [address] [place] [address] PCP - General Family Medicine 12/02/17 Bottle Hop Relationship Specialty Start Date End Date Leanna Rangel MD [address] [place] [address] PCP - General Family Medicine 12/02/17 Bottle Hop Relationship Specialty Start Date End Date Leanna Rangel MD [address] [place] [address] PCP - General Family Medicine 12/02/17 Bottle Hop Relationship Specialty Start Date End Date Leanna Rangel MD [address] [facility] [place] [address] PCP - General Family Medicine 12/02/17 Bottle Hop Relationship Specialty Start Date End Date Leanna Rangel MD [address] [facility] [place] [address] PCP - General Family Medicine 12/02/17 Bottle Hop Relationship Specialty Start Date End Date Leanna Rangel MD [address] [facility] [place] [address] PCP - General Family Medicine 12/02/17 Bottle Hop Relationship Specialty Start Date End Date Leanna Rangel MD [address] [facility] [place] [address] PCP - General Family Medicine 12/02/17 Bottle Hop Relationship Specialty Start Date End Date Leanna Rangel MD [address] [facility] [place] [address] PCP - General Family Medicine 12/02/17 Bottle Hop Relationship Specialty Start Date End Date Leanna Rangel MD [address] [facility] [place] [address] PCP - General Family Medicine 12/02/17 FOR RECORDS PERTAINING TO PATIENTS WHO ARE OR HAVE BEEN ENROLLED IN A CHEMICAL DEPENDENCY/SUBSTANCEABUSE PROGRAM, SOME INFORMATION MAY BE OMITTED. This clinical summary was aggregated from multiple sources. Caution should be exercised in using it in the provision of clinical care. This summary normalizes information from multiple sources, and as a consequence, information in this document may materially change the coding, format and clinical context of patient data. In addition, data may be omitted in some cases. CLINICAL DECISIONS SHOULD BE BASED ON THE PRIMARY CLINICAL RECORDS. [facility] [employer] [facility]. provides no warranty or guarantee of the accuracy or completeness of information in this document.
== END 2023-07-15 17:15 | disposition home or self-care (01) ==
PROVIDERS: Emergency Provider Emergency Medicine; PCP Family Medicine; Visit Provider Emergency Medicine
DX: I26.99 Other pulmonary embolism without acute cor pulmonale (principal); E11.9 Type 2 diabetes mellitus without complications; R07.9 Chest pain, unspecified; R06.02 Shortness of breath; Z98.890 Other specified postprocedural states; Z79.01 Long term (current) use of anticoagulants
CPT/HCPCS: 99282